=== PATIENT | female | born 1935 | race Hispanic/Latino ===

== ENCOUNTER 2017-12-25 19:36 | Emergency (ER) | payer MEDICARE, OTHER ==
[2017-12-25 19:37] VITALS: BMI 39.0
[2017-12-25] MEDS ORDERED: Sodium Chloride 0.9% 1,000 ML IV STA (19:58)
--- NOTE | 2017-12-25 20:27 | ED PDOC ---
Arrival/HPI - General Chief Complaint: Female Genitourinary Time Seen by Provider: 12/25/17 19:41 Historian: Patient - History of Present Illness Narrative History of Present Illness (Text): 12/25/17 19:57 82 year old female, with past medical history of hypertension, diabetes mellitus and kidney stones, presents to the Emergency department complaining of sudden onset of left flank discomfort since today. Patient states worsening pain radiating to her left groin associated with occasional nausea, prompting her to present to the Emergency department for medical evaluation. Patient states symptoms are consistent with her previous episodes of renal colic. Patient denies any fever, chills , vomiting, diarrhea, chest pain, shortness of breath, dysuria, hematuria, urinary output changes or any other complaints. Time/Duration: 4-6 hours Symptom Onset: Gradual Symptom Course: Unchanged Quality: Aching Activities at Onset: Light Context: Home Past Medical History - Provider Review Nursing Documentation Reviewed: Yes - Cardiac Hx Cardiac Disorders: Yes Hx Hypertension: Yes - Pulmonary Hx Respiratory Disorders: No - Neurological Hx Neurological Disorder: No - HEENT Hx HEENT Disorder: No - Renal Hx Renal Disorder: Yes Hx Kidney Stones: Yes - Endocrine/Metabolic Hx Endocrine Disorders: Yes Hx Diabetes Mellitus Type 2: Yes - Hematological/Oncological Hx Blood Disorders: No Hx Blood Transfusions: No Hx Blood Transfusion Reaction: (NA) - Integumentary Hx Dermatological Disorder: No - Musculoskeletal/Rheumatological Hx Musculoskeletal Disorders: No - Gastrointestinal Hx Gastrointestinal Disorders: No - Genitourinary/Gynecological Hx Genitourinary Disorders: No - Psychiatric Hx Psychophysiologic Disorder: No Hx Physical Abuse: No Hx Substance Use: No - Surgical History Hx Cataract Extraction: Yes Hx Hysterectomy: Yes Hx Orthopedic Surgery: Yes (L WRIST, LEFT KNEE REPLACMENT) Other/Comment: RENAL STENT - Anesthesia Hx Anesthesia Reactions: No Hx Malignant Hyperthermia: No - Suicidal Assessment Feels Threatened In Home Enviroment: No Family/Social History - Physician Review Nursing Documentation Reviewed: Yes Family/Social History: No Known Family HX Smoking Status: Never Smoked Hx Alcohol Use: Yes (socially) Hx Substance Use: No Hx Substance Use Treatment: No Allergies/Home Meds Allergies/Adverse Reactions: Allergies No Known Allergies Allergy (Verified 12/25/17 19:39) Home Medications: Home Meds Medication Instructions Recorded Confirmed Atorvastatin Calcium [Lipitor] 40 mg PO DAILY 04/10/13 12/25/17 Glipizide 4 mg PO BID 04/10/13 12/25/17 Losartan/Hydrochlorothiazide 1 tab PO DAILY 07/24/14 12/25/17 [Losartan Potassium-Hydrochlorothiazide 12.5 M] Cholecalciferol (Vitamin D3) 1 tab PO DAILY 12/25/17 12/25/17 [Vitamin D3] Vit A/Vit C/Vit E/Zinc/Copper 1 tab PO BID 12/25/17 12/25/17 [Preservision Areds Tablet] Review of Systems - Physician Review All systems were reviewed & negative as marked: Yes - Review of Systems Constitutional: absent: Fevers Respiratory: absent: SOB Cardiovascular: absent: Chest Pain Gastrointestinal: Abdominal Pain (left flank pain), Nausea. absent: Diarrhea, Vomiting Genitourinary Female: absent: Dysuria, Hematuria, Urine Output Changes Physical Exam Vital Signs Reviewed: Yes Vital Signs Temp Pulse Resp BP Pulse Ox 12/25/17 23:10 98.9 F 90 18 154/75 H 96 12/25/17 22:15 99.2 F 108 H 19 140/87 96 12/25/17 19:41 98.5 F 95 H 17 145/75 95 Temperature: Afebrile Blood Pressure: Normal Pulse: Regular Respiratory Rate: Normal Appearance: Positive for: Well-Appearing, Non-Toxic, Comfortable Pain Distress: None Mental Status: Positive for: Alert and Oriented X 3 - Systems Exam Head: Present: Atraumatic, Normocephalic Pupils: Present: PERRL Extroacular Muscles: Present: EOMI Conjunctiva: Present: Normal Mouth: Present: Moist Mucous Membranes Neck: Present: Normal Range of Motion Respiratory/Chest: Present: Clear to Auscultation, Good Air Exchange. No: Respiratory Distress, Accessory Muscle Use Cardiovascular: Present: Regular Rate and Rhythm, Normal S1, S2. No: Murmurs Abdomen: No: Tenderness, Distention, Peritoneal Signs Back: Present: Normal Inspection. No: CVA Tenderness Upper Extremity: Present: Normal Inspection. No: Cyanosis, Edema Lower Extremity: Present: Normal Inspection. No: Edema Neurological: Present: GCS=15, CN II-XII Intact, Speech Normal Skin: Present: Warm, Dry, Normal Color. No: Rashes Psychiatric: Present: Alert, Oriented x 3, Normal Insight, Normal Concentration Medical Decision Making ED Course and Treatment: 12/25/17 19:57 Impression: 82 year old female presents to the Emergency department for left flank pain associated with nausea. Differential Diagnosis included but are not limited to: Renal colic Plan: -- CT of Abdomen/Pelvis -- Labs -- IV Fluids -- Toradol -- Zofran -- Urinalysis -- Reassess and disposition Prior Visits: Notes and results from previous visits were reviewed. Progress Notes: 12/25/17 21:59 CT Abdomen and Pelvis shows: Limitations: Limited evaluation due to lack of IV contrast. Lung bases: Unremarkable. No mass. No consolidation. Heart: coronary artery calcification. Mediastinum: Small hiatal hernia. Small hiatal hernia. ABDOMEN: Liver: The liver is heterogeneous in appearance. Gallbladder and bile ducts: Unremarkable. No calcified stones. No ductal dilation. Pancreas: Pancreas evaluation is limited. No ductal dilation. Spleen: Unremarkable. No splenomegaly. Adrenals: Unremarkable. No mass. Kidneys and ureters: 4 mm calculus is noted just below the UPJ in the proximal ureter with mild left hydronephrosis. Stomach and bowel: Bowel evaluation is limited due to lack of distention. No mucosal thickening. PELVIS: Appendix: No findings to suggest acute appendicitis. Bladder: Air noted within the bladder probably related to recent instrumentation. No stones. Reproductive: Unremarkable as visualized. ABDOMEN and PELVIS: Intraperitoneal space: Unremarkable. No free air. No significant fluid collection. Bones/joints: Osteopenia and degenerative changes of the spine. No acute fracture. No dislocation. Soft tissues: Small umbilical hernia containing fat and fluid. Vasculature: Significant atherosclerotic changes of the aorta and calcification of the branches. No abdominal aortic aneurysm. Lymph nodes: Unremarkable. No enlarged lymph nodes. IMPRESSION: 4 mm calculus in the left UVJ with mild hydronephrosis. 12/25/17 22:13 On re-evaluation, patient feels better and is in no acute distress. I have discussed the results and plan with the patient, who expresses understanding. Patient in agreement with plan to be discharged home. Patient is stable for discharge. Patient was instructed to follow up with physician or return if symptoms worsen or new concerning symptoms arise. - Lab Interpretations Lab Results: 12/25/17 20:06 12/25/17 20:06 Lab Results 12/25/17 20:06: WBC 8.8, RBC 4.75, Hgb 14.4, Hct 42.6, MCV 89.7, MCH 30.3, MCHC 33.8, RDW 14.0, Plt Count 185, MPV 10.5 12/25/17 20:06: Sodium 141, Potassium 4.1, Chloride 102, Carbon Dioxide 26, Anion Gap 17, BUN 26 H, Creatinine 0.8, Est GFR ( Amer) > 60, Est GFR ( Non-Af Amer) > 60, Random Glucose 197 H, Calcium 9.8, Total Bilirubin 0.7, AST 17, ALT 35, Alkaline Phosphatase 78, Total Protein 8.1, Albumin 4.6, Globulin 3.5, Albumin/Globulin Ratio 1.3, Lipase 41 12/25/17 20:06: Urine Color Light yellow, Urine Appearance Cloudy, Urine pH 6.0 , Ur Specific [place] 1.025, Urine Protein 30 H, Urine Glucose (UA) Negative, Urine Ketones Negative, Urine Blood Large H, Urine Nitrate Positive H, Urine Bilirubin Negative, Urine Urobilinogen 0.2, Ur Leukocyte Esterase Large H, Urine RBC 5 - 10, Urine WBC 20 - 25, Ur Epithelial Cells 1 - 3, Urine Bacteria Large - RAD Interpretation Radiology Orders: 12/25/17 19:57 ABD & PELVIS W/O PO OR IV CONT [CT] Stat Surgical Services Coordinator: Radiologist - Medication Orders Current Medication Orders: Discontinued Medications Sodium Chloride (Sodium Chloride 0.9%) 1,000 mls @ 999 mls/hr IV .Q1H1M STA Stop: 12/25/17 20:58 Last Admin: 12/25/17 20:20 Dose: 999 mls/hr eMAR Start Stop Document 12/25/17 20:20 OCS (Rec: 12/25/17 20:23 [email or web address] Intravenous Solution Start Date 12/25/17 Start Time 20:21 End Date 12/25/17 End time 21:22 Total Infusion Time 61 Ceftriaxone Sodium (Rocephin 1 Gram Ivpb) 1 gm in 100 mls @ 200 mls/hr IV ONCE STA PRN Reason: Protocol Stop: 12/25/17 22:33 Last Admin: 12/25/17 22:14 Dose: 200 mls/hr eMAR Start Stop Document 12/25/17 22:14 OCS (Rec: 12/25/17 22:14 [email or web address] Intravenous Solution Start Date 12/25/17 Start Time 22:14 End Date 12/25/17 End time 22:44 Total Infusion Time 30 Ketorolac Tromethamine (Toradol) 30 mg IVP ONCE ONE Stop: 12/25/17 19:59 Last Admin: 12/25/17 20:23 Dose: 30 mg MAR Pain Assessment Document 12/25/17 20:23 OCS (Rec: 12/25/17 20:23 [email or web address] Pain Reassessment Is this a pain reassessment? No Sleep Is patient sleeping during reassessment? No Presence of Pain Presence of Pain Yes Pain Scale Used Pain Scale Used Numeric Location Left, Right or Bilateral Right Upper or Lower Lower Pain Location Body Site Abdomen Description Description Constant Intensity of Pain at present 10 Aggravating Factors ADL's IVP Administration Document 12/25/17 20:23 OCS (Rec: 12/25/17 20:23 [email or web address] Charges for Administration # of IVP Administrations 1 Ondansetron HCl (Zofran Inj) 4 mg IVP ONCE ONE Stop: 12/25/17 20:04 Last Admin: 12/25/17 20:23 Dose: 4 mg IVP Administration Document 12/25/17 20:23 OCS (Rec: 12/25/17 20:24 [email or web address] Charges for Administration # of IVP Administrations 1 - Scribe Statement The provider has reviewed the documentation as recorded by the Scribe Eileen Ho. All medical record entries made by the Scribe were at my direction and personally dictated by me. I have reviewed the chart and agree that the record accurately reflects my personal performance of the history, physical exam, medical decision making, and the department course for this patient. I have also personally directed, reviewed, and agree with the discharge instructions and disposition. Disposition/Present on Arrival - Present on Arrival Any Indicators Present on Arrival: No History of DVT/PE: No History of Uncontrolled Diabetes: No Urinary Catheter: No History of Decub. Ulcer: No History Surgical Site Infection Following: None - Disposition Have Diagnosis and Disposition been Completed?: Yes Diagnosis: Renal colic on left side, UTI (urinary tract infection) Disposition: HOME/ ROUTINE Disposition Time: 22:05 Patient Plan: Discharge Condition: STABLE Discharge Instructions (ExitCare): Urinary Tract Infection, Adult (DC), Renal Colic (DC) Additional Instructions: Drink plenty of liquids/take meds as prescribed/follow up with your doctor/ urologist this week/any recurrent severe pain return to the emergency room Prescriptions: Cephalexin [cephalexin] 500 mg PO BID #14 cap Acetaminophen/Hydrocodone Bi [Vicodin 300 mg-5 mg] 1 tab PO Q6 PRN #16 tab PRN Reason: Pain, Moderate (4-7) Forms: [employer] (French)
[2017-12-25 20:33] LABS: HEMOGLOBIN 14.4 g/dL (12.0-16.0); MEAN CELL VOLUME 89.7 fl (80.0-105.0); MEAN CORPUSCULAR HEMOGLOBIN 30.3 pg (25.0-35.0); MEAN CORPUSCULAR HGB CONC 33.8 g/dl (31.0-37.0); MEAN PLATELET VOLUME 10.5 fl (7.0-11.0); RBC 4.75 10^6/uL (3.5-6.1); WHITE BLOOD COUNT 8.8 10^3/ul (4.5-11.0)
[2017-12-25 20:36] LABS: URINE APPEARANCE CLOUDY (CLEAR); URINE BILIRUBIN NEGATIVE (NEGATIVE); URINE BLOOD LARGE (NEGATIVE); URINE COLOR LIGHT YELLOW (YELLOW); URINE GLUCOSE (UA) NEGATIVE (NEGATIVE); URINE LEUKOCYTE ESTERASE LARGE Leu/uL (NEGATIVE); URINE PROTEIN 30 mg/dL (<30 mg/dL); URINE UROBILINOGEN 0.2 E.U./dL (<1 E.U./dL)
[2017-12-25 20:41] LABS: ALB/GLOB RATIO 1.3 (1.1-1.8); ALBUMIN 4.6 g/dL (3.0-4.8); ALT/SGPT 35 U/L (7-56); AST/SGOT 17 U/L (14-36); BLOOD UREA NITROGEN 26 mg/dL (7-21); CALCIUM 9.8 mg/dL (8.4-10.5); GFR AFRICAN-AMERICAN > 60; GFR NON-AFRICAN AMERICAN > 60; LIPASE 41 U/L (23-300)
[2017-12-25 20:42] LABS: URINE BACTERIA LARGE (NEG); URINE WBC 20 - 25 /hpf (0-6)
[2017-12-25] MEDS ORDERED: cefTRIAXone 1 gm 1 GM/100 ML BAG IV STA (22:04)
[2017-12-25 22:22] VITALS: O2SAT 96
[2017-12-25 23:11] VITALS: BP 154/75; PULSE 90; RESP 18; TEMP 98.9
--- NOTE | 2017-12-26 09:13 | CT ---
Date of service: 12/25/2017 PROCEDURE: CT Abdomen and Pelvis without intravenous contrast HISTORY: left flank pain/HX. of nephrolithiasis COMPARISON: None. TECHNIQUE: Without contrast.. Contrast dose: Radiation dose: Total exam DLP = 1065 mGy-cm. This CT exam was performed using one or more of the following dose reduction techniques: Automated exposure control, adjustment of the mA and/or kV according to patient size, and/or use of iterative reconstruction technique. FINDINGS: LOWER THORAX: Unremarkable. LIVER: Unremarkable. No gross lesion or ductal dilatation. GALLBLADDER AND BILE DUCTS: Unremarkable. PANCREAS: Unremarkable. No gross lesion or ductal dilatation. SPLEEN: Unremarkable. ADRENALS: Unremarkable. No mass. KIDNEYS AND URETERS: There is a 4 mm stone in the proximal left ureter with mild hydronephrosis. There is a 10 mm nonobstructing stone in the lower pole of the right kidney. VASCULATURE: Unremarkable. No aortic aneurysm. BOWEL: Unremarkable. No obstruction. No gross mural thickening. APPENDIX: Unremarkable. Normal appendix. PERITONEUM: Unremarkable. No free fluid. No free air. LYMPH NODES: Unremarkable. No enlarged lymph nodes. BLADDER: Unremarkable. REPRODUCTIVE: Unremarkable. BONES: No acute fracture. OTHER FINDINGS: The report concurs with the preliminary [facility] report IMPRESSION: 4 mm stone in the proximal left ureter with mild hydronephrosis. 10 mm nonobstructing stone in the lower pole of the right kidney
== END 2017-12-25 22:15 | disposition home or self-care (01) ==
LOC: ED 19:36
DX: N20.0 Calculus of kidney (principal); N39.0 Urinary tract infection, site not specified; I10 Essential (primary) hypertension; E11.9 Type 2 diabetes mellitus without complications; Z87.442 Personal history of urinary calculi
CPT/HCPCS: 72HRC; 99283

== ENCOUNTER 2017-12-25 23:54 | Inpatient (IN) | payer MEDICARE, OTHER ==
[2017-12-25 23:59] VITALS: BMI 38.0
--- NOTE | 2017-12-26 00:29 | ED PDOC ---
Arrival/HPI - General Chief Complaint: Medical Clearance Time Seen by Provider: 12/25/17 23:57 Historian: Patient - History of Present Illness Narrative History of Present Illness (Text): 12/26/17 00:23 Carline Nunez is an 82 year old female, whose past medical history includes hypertension, diabetes, and kidney stones, who presents to the Emergency department complaining of chills and shaking. Patient was seen earlier today for evaluation of left flank pain and diagnosed with a ureteral stone. Patient was treated with symptomatic relief. Patient also with a possible UTI, was treated with initial dose of IV Rocephin, and was discharged home. Patient states while at home she began experiencing shaking/chills. Patient states she has no allergies to any antibiotics. Patient denies any chest pain, nausea, vomiting, diarrhea, neck pain, headache, dizziness, or any other complaints. Time/Duration: Prior to Arrival Symptom Onset: Gradual Symptom Course: Unchanged Activities at Onset: Light Context: Home Past Medical History - Provider Review Nursing Documentation Reviewed: Yes - Infectious Disease Hx of Infectious Diseases: None - Cardiac Hx Cardiac Disorders: Yes Hx Hypertension: Yes - Pulmonary Hx Respiratory Disorders: No - Neurological Hx Neurological Disorder: No - HEENT Hx HEENT Disorder: No - Renal Hx Renal Disorder: No - Endocrine/Metabolic Hx Endocrine Disorders: Yes Hx Diabetes Mellitus Type 2: Yes - Hematological/Oncological Hx Blood Disorders: No Hx Blood Transfusions: No Hx Blood Transfusion Reaction: (NA) - Integumentary Hx Dermatological Disorder: No - Musculoskeletal/Rheumatological Hx Musculoskeletal Disorders: No - Gastrointestinal Hx Gastrointestinal Disorders: No - Genitourinary/Gynecological Hx Genitourinary Disorders: No - Psychiatric Hx Psychophysiologic Disorder: No Hx Physical Abuse: No Hx Substance Use: No - Surgical History Hx Orthopedic Surgery: Yes (left wrist sx, LEFT KNEE REPLACMENT) - Anesthesia Hx Anesthesia Reactions: No Hx Malignant Hyperthermia: No - Suicidal Assessment Feels Threatened In Home Enviroment: No Family/Social History - Physician Review Nursing Documentation Reviewed: Yes Family/Social History: Unknown Family HX Smoking Status: Never Smoked Hx Alcohol Use: Yes (socially) Hx Substance Use: No Hx Substance Use Treatment: No Allergies/Home Meds Allergies/Adverse Reactions: Allergies No Known Allergies Allergy (Verified 12/25/17 19:39) Home Medications: Home Meds Medication Instructions Recorded Confirmed Atorvastatin Calcium [Lipitor] 40 mg PO DAILY 04/10/13 12/25/17 Glipizide 4 mg PO BID 04/10/13 12/25/17 Losartan/Hydrochlorothiazide 1 tab PO DAILY 07/24/14 12/25/17 [Losartan Potassium-Hydrochlorothiazide 12.5 M] Cholecalciferol (Vitamin D3) 1 tab PO DAILY 12/25/17 12/25/17 [Vitamin D3] Vit A/Vit C/Vit E/Zinc/Copper 1 tab PO BID 12/25/17 12/25/17 [Preservision Areds Tablet] Review of Systems - Physician Review All systems were reviewed & negative as marked: Yes - Review of Systems Constitutional: Other (+chills, +shaking) Eyes: Normal ENT: Normal Respiratory: absent: SOB Cardiovascular: Normal. absent: Chest Pain Gastrointestinal: Normal. absent: Abdominal Pain, Diarrhea, Nausea, Vomiting Genitourinary Female: Normal. absent: Dysuria, Frequency, Hematuria, Urine Output Changes Musculoskeletal: Normal. absent: Back Pain, Neck Pain Skin: Normal. absent: Rash Neurological: Normal. absent: Headache, Dizziness Endocrine: Normal Hemo/Lymphatic: Normal Psychiatric: Normal Physical Exam Vital Signs Reviewed: Yes Vital Signs Temp Pulse Resp BP Pulse Ox 12/26/17 03:39 108 H 18 110/59 L 95 12/26/17 01:48 98.7 F 118 H 18 117/69 95 12/26/17 00:42 100.8 F H 123 H 18 123/60 95 Temperature: Afebrile Blood Pressure: Normal Pulse: Tachycardic Respiratory Rate: Normal Appearance: Positive for: Well-Appearing, Non-Toxic, Comfortable Pain Distress: None Mental Status: Positive for: Alert and Oriented X 3 - Systems Exam Head: Present: Atraumatic, Normocephalic Pupils: Present: PERRL Extroacular Muscles: Present: EOMI Conjunctiva: Present: Normal Ears: Present: Normal, NORMAL TM, Normal Canal. No: Erythema, TM Bulging, Fluid , TM Perf Mouth: Present: Moist Mucous Membranes Pharnyx: Present: Normal. No: ERYTHEMA, EXUDATE, TONSILS ENLARGED, Peritonsilar Swelling, Uvular Deviation, Muffled/Hoarse Voice, Str[place], Soft Palate/Uvular Edema Nose (External): Present: Atraumatic Nose (Internal): Present: Normal Inspection Neck: Present: Normal Range of Motion. No: Meningeal Signs, MIDLINE TENDERNESS , Paraspinal Tenderness Respiratory/Chest: Present: Clear to Auscultation, Good Air Exchange. No: Respiratory Distress, Accessory Muscle Use Cardiovascular: Present: Normal S1, S2, Tachycardic. No: Murmurs Abdomen: No: Tenderness, Distention, Peritoneal Signs Back: Present: Normal Inspection. No: CVA Tenderness, Midline Tenderness, Paraspinal Tenderness Upper Extremity: Present: Normal Inspection. No: Cyanosis, Edema Lower Extremity: Present: Normal Inspection. No: Edema Neurological: Present: GCS=15, CN II-XII Intact, Speech Normal Skin: Present: Warm, Dry, Normal Color. No: Rashes Psychiatric: Present: Alert, Oriented x 3, Normal Insight, Normal Concentration Medical Decision Making ED Course and Treatment: 12/26/17 00:23 Impression: 82 year old female complaining of chills/shaking . Plan: -- EKG -- Chest X-ray -- Labs, VBG, blood cultures -- Urinalysis, urine cultures -- IV fluids -- Tylenol -- Reassess and disposition Prior Visits: Notes and results from previous visits were reviewed. Progress Notes: Reviewed EKG, sinus tachycardia at 124 bpm. LAD. Septal/lateral infarct. 12/26/17 01:03 Labs noted, lactate: 3.5. Code Sepsis called. 12/26/17 02:06 Chest X-ray reviewed, shows no acute processes. Case discussed with Dr. Mir, attenuator, who is aware and agrees to evaluate pt for possible ICU admission. 12/26/17 02:[address] Ritchie, who is aware and agrees with plan. Accepts pt in to his service. 12/26/17 02:[address] Mir, present in Emergency department to evaluate pt, states pt is stable for telemetry. Pt will be admitted to Telemetry for sepsis, UTI, and nephrolithiasis under Dr. Ritchie's service. - Lab Interpretations Lab Results: 12/26/17 00:15 12/26/17 00:15 Lab Results 12/26/17 00:15: Sodium 139, Chloride 104, Potassium 4.2, Carbon Dioxide 19 L, Anion Gap 20, BUN 27 H, Creatinine 0.9, Est GFR ( Amer) > 60, Est GFR ( Non-Af Amer) 60, Random Glucose 220 H, Calcium 9.1, Phosphorus 3.6, Magnesium 1.6 L, Total Bilirubin 1.0, AST 46 H D, ALT 35, Alkaline Phosphatase 84, Total Protein 7.1, Albumin 4.0, Globulin 3.1, Albumin/Globulin Ratio 1.3 12/26/17 00:15: pO2 50, VBG pH 7.29 L, VBG pCO2 40.0, VBG HCO3 19.2 L, VBG Total CO2 20.4 L, VBG O2 Sat (Calc) 87.2 H, VBG Base Excess -7.0 L, VBG Potassium 4.2, Sodium 138.0, Chloride 106.0, Glucose 234 H, Lactate 3.5 H, FiO2 21.0, Venous Blood Potassium 4.2 12/26/17 00:15: PT 11.0, INR 0.97, APTT 24.7 L 12/26/17 00:15: WBC 2.2 L* D, RBC 4.53, Hgb 13.7, Hct 40.5, MCV 89.4, MCH 30.2, MCHC 33.8, RDW 14.0, Plt Count 117 L, MPV 10.4, Gran % 91.6 H, Lymph % (Auto) 7.0 L, [place] % (Auto) 0.9 L, Eos % (Auto) 0.5 L, Baso % (Auto) 0.0, Gran # 1.97, Lymph # (Auto) 0.2 L, [place] # (Auto) 0.0 L, Eos # (Auto) 0.0, Baso # (Auto) 0.00 , Neutrophils % (Manual) 65, Band Neutrophils % 20 H*, Lymphocytes % (Manual) 9 L, Atypical Lymphs % 1 H, Monocytes % (Manual) 1, Eosinophils % (Manual) 1, Metamyelocytes % 2, Myelocytes % 1, Platelet Evaluation Low I have reviewed the lab results: Yes - RAD Interpretation Radiology Orders: 12/26/17 00:17 CHEST PORTABLE [RAD] Stat Video Camera Operator: ED Physician - EKG Interpretation Interpreted by ED Physician: Yes Type: 12 lead EKG - Medication Orders Current Medication Orders: Acetaminophen (Tylenol 325mg Tab) 650 mg PO Q6H PRN PRN Reason: Fever >100.4 F Stop: 12/26/17 13:00 Sodium Chloride (Sodium Chloride 0.9%) 1,000 mls @ 150 mls/hr IV .Q6H40M ROGERS Last Admin: 12/26/17 00:42 Dose: 150 mls/hr eMAR Start Stop Document 12/26/17 00:42 AD (Rec: 12/26/17 00:42 AD [id number]) Intravenous Solution Start Date 12/26/17 Start Time 00:42 Cefepime HCl (Maxipime 1gm) 1 gm in 100 mls @ 100 mls/hr IVPB Q24H ROGERS PRN Reason: Protocol Discontinued Medications Acetaminophen (Tylenol 325mg Tab) 650 mg PO STAT STA Stop: 12/26/17 00:26 Last Admin: 12/26/17 00:42 Dose: 650 mg MAR Pain/Vitals Document 12/26/17 00:42 AD (Rec: 12/26/17 00:43 AD [id number]) Vitals Temperature (97.6 F-99.6 F) 100.8 F Temperature Source Oral Sodium Chloride (Sodium Chloride 0.9%) 1,000 mls @ 2,000 mls/hr IV .Q30M ONE Stop: 12/26/17 01:37 Last Admin: 12/26/17 01:24 Dose: 2,000 mls/hr eMAR Start Stop Document 12/26/17 01:24 AD (Rec: 12/26/17 01:24 AD [id number]) Intravenous Solution Start Date 12/26/17 Start Time 01:24 Magnesium Sulfate/Dextrose (Magnesium Sulfate 1 Gm/100 Ml D5w) 1 gm in 100 mls @ 100 mls/hr IVPB ONCE ONE Stop: 12/26/17 03:33 Last Admin: 12/26/17 02:52 Dose: 100 mls/hr eMAR Start Stop Document 12/26/17 02:52 AD (Rec: 12/26/17 02:52 AD [id number]) Intravenous Solution Start Date 12/26/17 Start Time 02:52 - Scribe Statement The provider has reviewed the documentation as recorded by the Humzaibtommy Mondragon Provider Scribe Attestation: All medical record entries made by the Scribe were at my direction and personally dictated by me. I have reviewed the chart and agree that the record accurately reflects my personal performance of the history, physical exam, medical decision making, and the department course for this patient. I have also personally directed, reviewed, and agree with the discharge instructions and disposition. Disposition/Present on Arrival - Present on Arrival Any Indicators Present on Arrival: No History of DVT/PE: No History of Uncontrolled Diabetes: No Urinary Catheter: No History of Decub. Ulcer: No History Surgical Site Infection Following: None - Disposition Have Diagnosis and Disposition been Completed?: Yes Diagnosis: Left ureteral calculus, Fever, Sepsis, UTI (urinary tract infection) Disposition: HOSPITALIZED Disposition Time: 03:05 Patient Plan: Admission Condition: STABLE
[2017-12-26] MEDS: Sodium Chloride 0.9% 1,000 ML IV SCH ×4 (00:42→21:25)
[2017-12-26 00:51] LABS: EOS % 0.5 % (1.5-5.0); GRAN # 1.97 (1.4-6.5); GRAN % 91.6 % (50.0-68.0); HEMOGLOBIN 13.7 g/dL (12.0-16.0); LYMPH # 0.2 (1.2-3.4); MEAN CELL VOLUME 89.4 fl (80.0-105.0); MEAN CORPUSCULAR HEMOGLOBIN 30.2 pg (25.0-35.0); MEAN CORPUSCULAR HGB CONC 33.8 g/dl (31.0-37.0); MEAN PLATELET VOLUME 10.4 fl (7.0-11.0); MONO % 0.9 % (1.0-6.0); PLATELET COUNT 117 10^3/uL (120.0-450.0); RBC 4.53 10^6/uL (3.5-6.1)
[2017-12-26 00:57] LABS: VENOUS BLOOD GAS PO2 50 mm/Hg (30-55); VENOUS BLOOD PH 7.29 (7.32-7.43)
[2017-12-26 01:01] LABS: WHITE BLOOD COUNT 2.2 10^3/ul (4.5-11.0)
[2017-12-26] MEDS ORDERED: Sodium Chloride 0.9% 1,000 ML IV ONE (01:08)
[2017-12-26 01:14] LABS: INR 0.97 (0.93-1.08); PARTIAL THROMBOPLASTIN TIME 24.7 Seconds (25.1-36.5)
[2017-12-26 01:23] LABS: ALB/GLOB RATIO 1.3 (1.1-1.8); ALT/SGPT 35 U/L (7-56); AST/SGOT 46 U/L (14-36); BLOOD UREA NITROGEN 27 mg/dL (7-21); CALCIUM 9.1 mg/dL (8.4-10.5); GFR AFRICAN-AMERICAN > 60; GFR NON-AFRICAN AMERICAN 60
[2017-12-26] MEDS ORDERED: Magnesium Sulfate 1 gm in D5W 1 GM/100 ML BAG IVPB ONE ×2 (02:34→17:09)
[2017-12-26 03:27] LABS: ATYPICAL LYMPHOCYTE 1 % (0.0-0.0); BAND 20 % (0-2); EOSINOPHIL 1 % (0.0-3.0); LYMPHOCYTE 9 % (22.0-35.0); METAMYELOCYTE 2 %; MONOCYTE 1 % (1.0-6.0); MYELOCYTE 1 %
[2017-12-26 03:28] LABS: VENOUS BLOOD GAS BASE EXCESS -6.6 mmol/L (0.0-2.0); VENOUS BLOOD GAS PO2 144 mm/Hg (30-55); VENOUS BLOOD PH 7.33 (7.32-7.43)
[2017-12-26 03:28] LABS: PLATELET ESTIMATE LOW (NORMAL)
[2017-12-26 03:29] LABS: NEUTROPHIL 65 % (50.0-70.0)
--- NOTE | 2017-12-26 04:24 | PCM.SEPTIC ---
Sepsis Progress Note - Reassessment Type Date of Evaluation: 12/26/17 Time of Evaluation: 04:22 Reassessment Type: Non-invasive reassessment - Non Invasive Reassessment Were the most recent vital sign reviewed: Yes Vital Sign (Latest): Temp Pulse Resp BP Pulse Ox 98.7 F 108 H 18 110/59 L 95 12/26/17 01:48 12/26/17 03:55 12/26/17 03:55 12/26/17 03:55 12/26/17 03:55 Cardiovascular: Yes: Chest Non Tender, Edema, Murmur, Tachycardia Respiratory: Yes: Normal Breath Sounds. No: Rhonchi, Wheezing, Respiratory Distress Capillary Refill: Normal (Less than 2 sec) Pulses: Normal Radial, Decreased Dorsalis Pedis Skin: Normal Color, Warm, Diaphoretic
[2017-12-26 04:46] LABS: PH,URINE 5.5 (4.7-8.0); URINE BILIRUBIN NEGATIVE (NEGATIVE); URINE BLOOD LARGE (NEGATIVE); URINE GLUCOSE (UA) NEGATIVE (NEGATIVE); URINE LEUKOCYTE ESTERASE LARGE Leu/uL (NEGATIVE); URINE PROTEIN 30 mg/dL (<30 mg/dL); URINE UROBILINOGEN 0.2 E.U./dL (<1 E.U./dL)
[2017-12-26 04:56] LABS: URINE APPEARANCE TURBID (CLEAR); URINE COLOR DARK YELLOW (YELLOW)
[2017-12-26 05:01] LABS: URINE BACTERIA MOD (NEG); URINE WBC TNTC /hpf (0-6)
[2017-12-26] MEDS ORDERED: Sodium Chloride 0.9% 1,000 ML IV SCH (07:00)
[2017-12-26] MEDS: Insulin Reg-MEDIUM-Coverage SC SCH ×3 (08:04→17:11)
--- NOTE | 2017-12-26 08:42 | RAD ---
Date of service: 12/26/2017 HISTORY: Sepsis Patient COMPARISON: No prior. FINDINGS: LUNGS: There are low lung volumes. There is mild pulmonary venous congestion. There is left lower lobe airspace disease. PLEURA: Question of small left pleural effusion, no pneumothorax apparent. CARDIOVASCULAR: Normal. OSSEOUS STRUCTURES: No significant abnormalities. VISUALIZED UPPER ABDOMEN: Normal. OTHER FINDINGS: None. IMPRESSION: Left lower lobe airspace disease may represent atelectasis or pneumonia. Small left pleural effusion. Low lung volumes may be related to poor inspiratory effort.
--- NOTE | 2017-12-26 09:26 | CARD ---
APPROVED REPORT Date of service: 12/26/2017 EKG Measurement Heart [id number] <Conclusion> Sinus tachycardia Possible Left atrial enlargement Left Anterior Luis-Block. Possible Septal infarct? age Old. Possible Lateral infarct? age Old. Abnormal ECG
[2017-12-26] MEDS ORDERED: Iodixanol 320 mg/ml 50 ml Sol IV ONE (09:27)
[2017-12-26] MEDS ORDERED: Cefepime 1gm in NS 100ml 1 GM/100 ML BAG IVPB SCH (10:00)
[2017-12-26] MEDS ORDERED: Etomidate 20 mg/10ml Inj IV ONE (10:03)
--- NOTE | 2017-12-26 11:25 | RAD ---
Date of service: 12/26/2017 PROCEDURE: Retrograde pyelogram HISTORY: STENT PLACEMENT COMPARISON: TECHNIQUE: 33.7 seconds of fluoro time. 16.4 mGy cumulative dose. Ten images submitted FINDINGS: There is placement of a left ureteral stent IMPRESSION: As above
[2017-12-26] MEDS ORDERED: Sodium Chloride 0.9% 500 ML IV SCH (12:15)
--- NOTE | 2017-12-26 14:24 | CP.PCM.HP ---
<Ronen Muhammad - Last Filed: 12/26/17 14:24> History of Present Illness - History of Present Illness History of Present Illness: Medicine H&P for Dr. Ritchie's service - Sonal Muhammad PGY3 HPI: Patient is a 82yo female with past medical history of hypertension, diabetes, and nephrolithiasis presented to [facility] [place] with c/o left-sided flank pain, subjective fevers and chills. She reported having been seen previously in the ED a day prior and told she had a left-sided ureteral stone. She was subsequently discharged on cephalexin and pain medication however began having worsening chills/shaking and decided to return to the ED. On evaluation, she was noted to have a WBC count of 2.2 with 20% bands, positive urinalysis and a lactate of 3.5. Code sepsis was called. She was treated with IV antibiotics, IV fluid hydration and urology was consulted for evaluation. She denied chest pain , palpitations, SOB, abdominal pain, nausea, vomiting, cough, focal weakness, numbness, tingling. 12point ROS as per above otherwise negative PMH: as stated above PSH: hysterectomy Allergies: NKDA Social Hx: denies tobacco, alcohol and illicit drug use Family Hx; noncontributory Present on Admission - Present on Admission Any Indicators Present on Admission: No Past Patient History - Infectious Disease Hx of Infectious Diseases: None - Past Social History Smoking Status: Never Smoked - CARDIAC Hx Cardiac Disorders: Yes Hx Hypertension: Yes - PULMONARY Hx Respiratory Disorders: No - NEUROLOGICAL Hx Neurological Disorder: No - HEENT Hx HEENT Problems: No - RENAL Hx Chronic Kidney Disease: No - ENDOCRINE/METABOLIC Hx Endocrine Disorders: Yes Hx Diabetes Mellitus Type 2: Yes - HEMATOLOGICAL/ONCOLOGICAL Hx Blood Transfusions: No Hx Blood Transfusion Reaction: No - INTEGUMENTARY Hx Dermatological Problems: No - MUSCULOSKELETAL/RHEUMATOLOGICAL Hx Musculoskeletal Disorders: No - GASTROINTESTINAL Hx Gastrointestinal Disorders: No - GENITOURINARY/GYNECOLOGICAL Hx Genitourinary Disorders: No - PSYCHIATRIC Hx Psychophysiologic Disorder: No Hx Physical Abuse: No Hx Substance Use: No - SURGICAL HISTORY Hx Surgeries: Yes - ANESTHESIA Hx Anesthesia Reactions: No Hx Malignant Hyperthermia: No Meds Allergies/Adverse Reactions: Allergies Allergy/AdvReac Type Severity Reaction Status Date / Time No Known Allergies Allergy Verified 12/25/17 19:39 Physical Exam - Constitutional Appears: No Acute Distress - Head Exam Head Exam: ATRAUMATIC, NORMOCEPHALIC - Eye Exam Eye Exam: EOMI Pupil Exam: PERRL - ENT Exam ENT Exam: Mucous Membranes Moist - Neck Exam Neck exam: Positive for: Normal Inspection - Respiratory Exam Respiratory Exam: Clear to Auscultation Bilateral. absent: Rales, Rhonchi, Wheezes - Cardiovascular Exam Cardiovascular Exam: RRR, +S1, +S2. absent: Gallop, Rubs - GI/Abdominal Exam GI & Abdominal Exam: Soft. absent: Guarding, Rigid - Extremities Exam Extremities exam: Positive for: pedal edema - Neurological Exam Neurological exam: Alert, CN II-XII Intact, Oriented x3 - Psychiatric Exam Psychiatric exam: Normal Affect, Normal Mood - Skin Skin Exam: Dry, Intact, Normal Color, Warm Results - Vital Signs Recent Vital Signs: Last Vital Signs Temp 98.1 F 12/26/17 13:00 Pulse 94 H 12/26/17 14:00 Resp 18 12/26/17 14:00 BP 85/58 L 12/26/17 14:00 Pulse Ox 95 12/26/17 14:00 - Labs Result Diagrams: 12/26/17 00:15 12/26/17 00:15 Labs: Laboratory Results - last 24 hr 12/26/17 12/26/17 12/26/17 03:15 04:10 07:19 pO2 144 H VBG pH 7.33 VBG pCO2 35.0 L VBG HCO3 18.5 L VBG Total CO2 19.6 L VBG O2 Sat (Calc) 99.5 H VBG Base Excess -6.6 L VBG Potassium 3.4 L Sodium 138.0 Chloride 110.0 H Glucose 231 H Lactate 2.8 H FiO2 21.0 POC Glucose (mg/dL) 216 H Venous Blood Potassium 3.4 L Urine Color Dark yellow Urine Appearance Turbid Urine pH 5.5 Ur Specific [place] 1.020 Urine Protein 30 H Urine Glucose (UA) Negative Urine Ketones Negative Urine Blood Large H Urine Nitrate Positive H Urine Bilirubin Negative Urine Urobilinogen 0.2 Ur Leukocyte Esterase Large H Urine RBC 10 - 15 Urine WBC Tntc Ur Epithelial Cells 1 - 3 Urine Bacteria Mod Assessment & Plan - Assessment and Plan (Free Text) Plan: 82yo female with history of nephrolithiasis, diabetes mellitus type 2, hypertension presents with c/o left-sided flank pain associated with subjective fever/chills secondary to left-sided ureterolithiasis 1. left-sided ureterolithiasis 2. DM type 2 3. Hx of hypertension -Patient was given IVF bolus and started on IVF hydration with normal saline. -Urology was consulted and she is s/p left ureteral stent placement -She is presently on meropenem as per ID recommendations -Tylenol PRN for fevers, zofran PRN for nausea/vomiting -Insulin sliding scale with fingerstick coverage for diabetes -Liquid diet to be advanced as tolerated -PT/OT -Blood/urine cultures pending Patient seen and case discussed/reviewed with attending Dr. Ritchie <Juan Miguel Ritchie - Last Filed: 12/26/17 17:34> Results - Vital Signs Recent Vital Signs: Last Vital Signs Temp 97.8 F 12/26/17 17:21 Pulse 94 H 12/26/17 17:21 Resp 18 12/26/17 17:21 BP 91/58 L 12/26/17 17:21 Pulse Ox 95 12/26/17 14:00 - Labs Result Diagrams: 12/26/17 00:15 12/26/17 00:15 Labs: Laboratory Results - last 24 hr 12/26/17 12/26/17 12/26/17 03:15 04:10 07:19 pO2 144 H VBG pH 7.33 VBG pCO2 35.0 L VBG HCO3 18.5 L VBG Total CO2 19.6 L VBG O2 Sat (Calc) 99.5 H VBG Base Excess -6.6 L VBG Potassium 3.4 L Sodium 138.0 Chloride 110.0 H Glucose 231 H Lactate 2.8 H FiO2 21.0 POC Glucose (mg/dL) 216 H Venous Blood Potassium 3.4 L Urine Color Dark yellow Urine Appearance Turbid Urine pH 5.5 Ur Specific [place] 1.020 Urine Protein 30 H Urine Glucose (UA) Negative Urine Ketones Negative Urine Blood Large H Urine Nitrate Positive H Urine Bilirubin Negative Urine Urobilinogen 0.2 Ur Leukocyte Esterase Large H Urine RBC 10 - 15 Urine WBC Tntc Ur Epithelial Cells 1 - 3 Urine Bacteria Mod Assessment & Plan - Assessment and Plan (Free Text) Assessment: 1. L kidney stone 2. Sepsis 3. Hypotension Plan: Pt seen and examined. I have reviewed the note of the bio medical technician and agree with it. I have discussed the assessment and plan with the resident. I have reviewed the patient's labs and medications. Pt with L kidney stone and L hyrodnephrosis. She also is septic from a UTI. She will need stent placement. I spoke to Dr Florence this morning to inform him about the pt. Pt is NPO. After the stent pt may worsen and become bactremic. The pt is on IVF with NS. She has a hx of stones and stents in the past.
--- NOTE | 2017-12-26 15:06 | OP ---
PROCEDURE DATE: 12/26/2017 PREOPERATIVE DIAGNOSES: Sepsis, obstructing left ureteral calculus, left hydronephrosis. POSTOPERATIVE DIAGNOSES: Sepsis, obstructing left ureteral calculus, left hydronephrosis. PROCEDURES: Cystoscopy, left retrograde pyelogram, and insertion of a left ureteral stent. ATTENDING SURGEON: Rigoberto Florecne MD ANESTHESIA: MAC. SPECIMENS: There were none. DRAINS: A 6 x 24 left ureteral stent. COMPLICATIONS: There were none. OPERATIVE FINDINGS: After informed consent was obtained, the patient was taken to operating room, placed on the operating table. Anesthesia was administered. The patient was placed in the dorsal lithotomy position, and prepped and draped in usual sterile fashion. The patient received intravenous antibiotics prior to start of the procedure. A 22-Niuean cystoscope was passed into the patient's bladder and a full survey inspection was performed. There were no stones, tumors, or foreign bodies of the bladder noted. Both ureteral orifices were visualized and appeared within normal limits. A 5-Niuean Totz catheter was introduced through the cystoscope and guided into the left ureteral orifice. Once inside the orifice, contrast was gently instilled into the left system. There appeared to be a tortuous left ureter. There was a filling defect noted just below the renal pelvis. There was mild fullness above this with mild hydronephrosis. At this point, a sensor wire was obtained. It was passed through the open-ended ureteral catheter and advanced under direct and fluoroscopic guidance up the ureter. This wire was able to be manipulated past the obstructing calculus and coiled in the upper collecting system. A 6-Niuean x 24 stent was obtained. It was then passed over the wire into the left ureter, advanced up the ureter under direct and fluoroscopic guidance. When the stent was in proper position, the guidewire was removed. A coil was seen in the kidney on fluoroscopy. A coil was seen in bladder on cystoscopy. A moderate amount of purulent-appearing urine was noted to be draining through the stent. At this point, the procedure was completed, the bladder was drained, and the cystoscope was removed. The patient tolerated the procedure well. She was returned to the supine position and taken to the recovery room, awake and in stable condition. Rigoberto Florence MD [facility] # [id number]
--- NOTE | 2017-12-26 17:46 | CP.PCM.CON ---
<HarryHosea - Last Filed: 12/26/17 18:00> History of Present Illness - History of Present Illness History of Present Illness: Hosea Mcdonald, PGY1 ICU Consult Note for Dr. Parry Patient is a 82 y/o F with PMHx of HTN, DM, nephrolithiasis (uric acid stones with recurrent hospital admissions), and aortic stenosis who presented to the ED at 7/16 at midnight for chills and shakes. Patient was evaluated for left flank pain prior to her return to the ED, where she received a CT of abdomen/ pelvis that showed a 4 mm stone in the proximal left ureter with mild hydronephrosis, as well as a 10 mm nonobstructing stone in the lower pole of the right kidney. At that time, patient was given x1 dose of IV Rocephin and discharged home. However, later onwards, patient started experiencing chills and shakes. Negative for other ROS. Vital signs in ED: T 100.8 HR 123 RR 18 BP 123/60 SaO2 95%. Code sepsis was called. Routine labs were ordered including CXR , EKG, Blood Cx, Urine Cx, and IVF. Later in the morning, urology was consulted. Cystoscopy and left retrograde pyelogram was done; patient had insertion of a left ureteral stent with no complications. Patient was sent to telemetry s/p left ureteral stent placement. At tele, patient had episodes of hypotension with BP ranging 80s/50s. As a result, ICU was consulted. Patient was examined. Denied fever, chills, abdominal pain, shortness of breath, chest pain, nausea, vomiting, diarrhea. Patient had difficulty making urine. Otherwise , she was in no acute distress and was resting comfortably on nasal cannula. BP during interview was noted to be 91/58 (MAP 69). A Full 12 point ROS was reviewed and unremarkable except as stated above. PMHx: HTN, DM, Nephrolithiasis (uric acid stones with recurrent hospital admissions), Aortic stenosis PSHx: hysterectomy, left ureteral stone stent NKDA: NKDA SocialHx: denies alcohol, tobacco, and drug use. FamilyHx: non-contributory Review of Systems - Review of Systems All systems: reviewed and no additional remarkable complaints except (as per HPI.) Past Patient History - Infectious Disease Hx of Infectious Diseases: None - Past Social History Smoking Status: Never Smoked - CARDIAC Hx Cardiac Disorders: Yes (Aortic Stenosis) Hx Hypertension: Yes - PULMONARY Hx Respiratory Disorders: No - NEUROLOGICAL Hx Neurological Disorder: No - HEENT Hx HEENT Problems: No - RENAL Hx Chronic Kidney Disease: No - ENDOCRINE/METABOLIC Hx Endocrine Disorders: Yes Hx Diabetes Mellitus Type 2: Yes - HEMATOLOGICAL/ONCOLOGICAL Hx Blood Transfusions: No Hx Blood Transfusion Reaction: No - INTEGUMENTARY Hx Dermatological Problems: No - MUSCULOSKELETAL/RHEUMATOLOGICAL Hx Musculoskeletal Disorders: No - GASTROINTESTINAL Hx Gastrointestinal Disorders: Yes Other/Comment: Nephrolithiasis - GENITOURINARY/GYNECOLOGICAL Hx Genitourinary Disorders: No - PSYCHIATRIC Hx Psychophysiologic Disorder: No Hx Physical Abuse: No Hx Substance Use: No - SURGICAL HISTORY Hx Surgeries: Yes Hx Hysterectomy: Yes - ANESTHESIA Hx Anesthesia Reactions: No Hx Malignant Hyperthermia: No Meds Allergies/Adverse Reactions: Allergies Allergy/AdvReac Type Severity Reaction Status Date / Time No Known Allergies Allergy Verified 12/25/17 19:39 - Medications Medications: Current Medications Hydrochlorothiazide (Microzide) 12.5 mg PO DAILY [facility] Meropenem (Merrem Iv 1 Gm Premix) 50 mls @ 100 mls/hr IVPB Q12 [facility] PRN Reason: Protocol Stop: 01/04/18 10:01 Sodium Chloride (Sodium Chloride 0.9%) 1,000 mls @ 100 mls/hr IV .Q10H [facility] Last Admin: 12/26/17 12:45 Dose: 100 mls/hr Magnesium Sulfate/Dextrose (Magnesium Sulfate 1 Gm/100 Ml D5w) 1 gm in 100 mls @ 100 mls/hr IVPB ONCE ONE Stop: 12/26/17 18:08 Insulin Human Regular (Humulin R Med) 0 units SC ACHS [facility] PRN Reason: Protocol Last Admin: 12/26/17 17:11 Dose: Not Given Losartan Potassium (Cozaar) 50 mg PO DAILY [facility] Physical Exam - Constitutional Appears: Well, Non-toxic, No Acute Distress - Head Exam Head Exam: ATRAUMATIC, NORMAL INSPECTION, NORMOCEPHALIC - Eye Exam Eye Exam: EOMI, Normal appearance, PERRL - ENT Exam ENT Exam: Normal Exam - Neck Exam Neck exam: Positive for: Full Rom - Respiratory Exam Respiratory Exam: absent: Accessory Muscle Use, Chest Wall Tenderness, Decreased Breath Sounds, Rales, Rhonchi, Wheezes, Respiratory Distress, Stridor Additional comments: Crackles on the right lung base. - Cardiovascular Exam Cardiovascular Exam: Systolic Murmur (Aortic Stenosis grade II ). absent: Bradycardia, Tachycardia, JVD - GI/Abdominal Exam GI & Abdominal Exam: Soft. absent: Bruit, Diminished Bowel Sounds, Distended, Guarding, Organomegaly, Pulsatile Mass, Rebound, Tenderness - Extremities Exam Extremities exam: Positive for: full ROM, normal inspection, pedal edema (+1), pedal pulses present. Negative for: calf tenderness, joint swelling - Back Exam Back exam: absent: CVA tenderness (L), CVA tenderness (R) - Neurological Exam Neurological exam: Alert, Oriented x3 Results - Vital Signs Recent Vital Signs: Last Vital Signs Temp 97.8 F 12/26/17 17:21 Pulse 94 H 12/26/17 17:21 Resp 18 12/26/17 17:21 BP 91/58 L 12/26/17 17:21 Pulse Ox 95 12/26/17 14:00 - Labs Result Diagrams: 12/26/17 00:15 12/26/17 00:15 Labs: Laboratory Results - last 24 hr 12/26/17 12/26/17 12/26/17 03:15 04:10 07:19 pO2 144 H VBG pH 7.33 VBG pCO2 35.0 L VBG HCO3 18.5 L VBG Total CO2 19.6 L VBG O2 Sat (Calc) 99.5 H VBG Base Excess -6.6 L VBG Potassium 3.4 L Sodium 138.0 Chloride 110.0 H Glucose 231 H Lactate 2.8 H FiO2 21.0 POC Glucose (mg/dL) 216 H Venous Blood Potassium 3.4 L Urine Color Dark yellow Urine Appearance Turbid Urine pH 5.5 Ur Specific [place] 1.020 Urine Protein 30 H Urine Glucose (UA) Negative Urine Ketones Negative Urine Blood Large H Urine Nitrate Positive H Urine Bilirubin Negative Urine Urobilinogen 0.2 Ur Leukocyte Esterase Large H Urine RBC 10 - 15 Urine WBC Tntc Ur Epithelial Cells 1 - 3 Urine Bacteria Mod Assessment & Plan - Assessment and Plan (Free Text) Assessment: Patient is a 82 y/o F with PMHx of HTN, DM, nephrolithiasis (uric acid stones with recurrent hospital admissions), and aortic stenosis who presented to the ED at 12/25 at midnight for chills and shakes. Prior to ED admission, patient was found to have a 4 mm stone in the proximal left ureter with mild hydronephrosis. Patient was given x1 dose of IV Rocephin and discharged home, however, patient started to experience chills, shakes, and left flank pain. Patient returned to the ED and met criteria for sepsis; code Sepsis was initiated. Urology was consulted and patient had insertion of a left ureteral stent. Patient was sent to telemetry after the procedure for monitoring. On tele , patient had episodes of hypotension (BP ranging 80s/50s) and ICU was consulted. Patient was examined and found to be grossly asymptomatic with BP 91/ 58 (MAP 69), and in no acute distress. Patient will be monitored overnight at the ICU for any changes. Plan: Sepsis 2/2 Nephrolithiasis s/p Left Ureteral Stent - Monitor overnight in the ICU - Maintain SaO2 > 92% - f/u blood cx and and urine cx - c/w antibiotics: meropenem - c/w NS @ 100 mls/hr - ordered magnesium sulfate - wbc 2.2 with 20% bands, repeat cbc/bmp - Urology (12/26): left ureteral stent placement with no complications HTN - monitor blood pressure and vital signs - Hold BP meds for now - Most recent BP 91/58 (MAP 69) - Maintain MAP > 65 Aortic Stenosis - systolic murmur heard on exam - do not overload with fluids - ECHO: done one month ago. Follow up with patient's search engine optimization specialist (Dr. Reid). DM - maintain euglycemia - ISS - Accuchecks ACHS Case was discussed and reviewed with Attending Physician Dr. Parry. <Hang Parry - Last Filed: 12/28/17 07:17> Meds - Medications Medications: Current Medications Hydrochlorothiazide (Microzide) 12.5 mg PO DAILY [facility] Meropenem (Merrem Iv 1 Gm Premix) 50 mls @ 100 mls/hr IVPB Q12 [facility] PRN Reason: Protocol Stop: 01/04/18 10:01 Last Admin: 12/27/17 21:56 Dose: 100 mls/hr Sodium Chloride (Sodium Chloride 0.9%) 1,000 mls @ 50 mls/hr IV .Q20H [facility] Last Admin: 12/28/17 00:52 Dose: 50 mls/hr Insulin Human Regular (Humulin R Med) 0 units SC ACHS [facility] PRN Reason: Protocol Last Admin: 12/27/17 21:54 Dose: Not Given Losartan Potassium (Cozaar) 50 mg PO DAILY [facility] Results - Vital Signs Recent Vital Signs: Last Vital Signs Temp 98.6 F 12/28/17 06:00 Pulse 102 H 12/28/17 06:00 Resp 20 12/28/17 06:00 BP 111/72 12/28/17 06:00 Pulse Ox 95 12/28/17 06:00 - Labs Result Diagrams: 12/28/17 06:00 12/27/17 05:50 Labs: Laboratory Results - last 24 hr 12/28/17 06:00 WBC 17.1 H RBC 3.96 Hgb 11.5 L Hct 35.9 L MCV 90.7 MCH 29.0 MCHC 32.0 RDW 14.8 H Plt Count 109 L MPV 11.6 H Gran % 91.7 H Lymph % (Auto) 4.4 L [place] % (Auto) 3.2 Eos % (Auto) 0.6 L Baso % (Auto) 0.1 Gran # 15.67 H Lymph # (Auto) 0.8 L [place] # (Auto) 0.6 Eos # (Auto) 0.1 Baso # (Auto) 0.01 Attending/Attestation - Attestation I have personally seen and examined this patient.: Yes I have fully participated in the care of the patient.: Yes I have reviewed all pertinent clinical information: Yes Notes (Text): 12/28/17 07:16 The patient was seen and examined at the bedside. Patient care was discussed with resident Medical records, lab studies, and imaging were reviewed and management issues were discussed and formulated. Last 24H events reviewed. Agree with above treatment plans as outlined in 's note with addition of the following: Sepsis \ UTI \ Ureterolithiasis \ DM2 -hemodynamic monitoring to maintain MAP>65; currently stable -f\u ECho -o2 supplementation to maintain Spo2>90 Pao2>60; currently comfortable on NC -continue broad spectrum Abx as per ID team and f\u cultures -f\u Bun\Cr and U\o; IVF with NS -PO diet and aspiration precautions -ISS and BGM monitoring -DVT \ PUD prophylaxis
[2017-12-26] MEDS: Meropenem IV 1 gm in NS 50 ML IVPB SCH (21:26)
[2017-12-26] MEDS ORDERED: DiphenhydrAMINE 50 mg/ml Inj IVP ONE (21:45)
[2017-12-27 06:52] LABS: BASO # 0.01 K/mm3 (0.0-2.0); BASO % 0.1 % (0.0-3.0); EOS % 0.1 % (1.5-5.0); GRAN # 17.29 (1.4-6.5); GRAN % 93.5 % (50.0-68.0); LYMPH # 0.5 (1.2-3.4); LYMPH % 2.4 % (22.0-35.0); MEAN CELL VOLUME 91.2 fl (80.0-105.0); MEAN CORPUSCULAR HEMOGLOBIN 29.2 pg (25.0-35.0); MEAN PLATELET VOLUME 11.3 fl (7.0-11.0); MONO # 0.7 (0.1-0.6); MONO % 3.9 % (1.0-6.0); RBC 3.87 10^6/uL (3.5-6.1); RED CELL DISTRIBUTION WIDTH 15.1 % (11.5-14.5)
[2017-12-27 07:09] LABS: WHITE BLOOD COUNT 18.5 10^3/ul (4.5-11.0)
[2017-12-27 07:10] LABS: ALB/GLOB RATIO 1.1 (1.1-1.8); ALBUMIN 3.1 g/dL (3.0-4.8); ALT/SGPT 48 U/L (7-56); AST/SGOT 52 U/L (14-36); BLOOD UREA NITROGEN 31 mg/dL (7-21); CALCIUM 7.7 mg/dL (8.4-10.5); GFR AFRICAN-AMERICAN > 60; GFR NON-AFRICAN AMERICAN 60; HEMOGLOBIN 11.3 g/dL (12.0-16.0)
--- NOTE | 2017-12-27 08:15 | CON ---
DATE: 12/26/2017 LOCATION: The patient is in room 263, bed 1. The patient was seen earlier this morning. CHIEF COMPLAINT: back pain. HISTORY OF PRESENT ILLNESS: This is an 82-year-old female with history of hypertension, diabetes, kidney stones, cataract, and high cholesterol, was admitted through the emergency room. The patient was found to have temperatures and complained of abdominal pain, , history of kidney stones pain and fevers. She denied any headache, blurred vision, diarrhea, or constipation. No nausea or vomiting. No chest pain. No rash, no new joint pain. REVIEW OF SYSTEMS: A 12-point review of systems was performed. PAST MEDICAL HISTORY: Significant for hypertension, diabetes, kidney stones, cataract, and high cholesterol. PAST SURGICAL HISTORY: Significant for cardiac catheterization, cataract surgery, and hysterectomy. ALLERGIES: THE PATIENT HAS NO KNOWN ALLERGIES. MEDICATIONS: Include glipizide, Lipitor, losartan, and hydrochlorothiazide. PHYSICAL EXAMINATION: GENERAL: The patient is in bed. She was seen earlier this morning. VITAL SIGNS: Temperature 98, T-max is 100.8, respiratory rate 20, heart rate of 96, blood pressure is 83/50. HEENT: Unremarkable. NECK: Supple. LUNGS: Decreased breath sounds. HEART: Normal S1, S2. ABDOMEN: Soft. Mild tenderness in the left lower quadrant. There is left CVA tenderness. LABORATORY DATA: Reveals a white count of 3,2. There is 20% bandemia and coagulation is a new high, now at 0.9. Blood gases are noted. Chemistries reveal a BUN of 27, creatinine of 0.9, glucose of 216. Urinalysis is noted. , moderate bacteria. Microbiology is pending. IMAGING: The patient has a chest x-ray which was negative. Questionable left lower lobe airspace disease. No congestion. ASSESSMENT AND PLAN: This is an 82-year-old female with hypertension, diabetes, kidney stones, cataract, high cholesterol, presenting with hypotension, leukopenia, bandemia, tachycardia, fevers, and positive urinalysis. The patient is scheduled for OR cystoscopy and pigtail stent placement with; 1. Severe sepsis with urine as a source and kidney stones, we will treat the patient with meropenem. The patient was on outpatient antibiotics blood and urine culture, and Urology intervention. We will follow closely with you. Abelino Hoang MD
[2017-12-27] MEDS: Insulin Reg-MEDIUM-Coverage SC SCH ×4 (08:24→21:54)
[2017-12-27] MEDS: Sodium Chloride 0.9% 1,000 ML IV SCH ×2 (08:48→12:48)
[2017-12-27] MEDS: Meropenem IV 1 gm in NS 50 ML IVPB SCH ×2 (10:26→21:56)
--- NOTE | 2017-12-27 13:45 | CP.PCM.PN ---
Subjective - Date & Time of Evaluation Date of Evaluation: 12/27/17 Time of Evaluation: 09:10 - Subjective Subjective: Comfortable on a chair, no fevers. Objective - Vital Signs/Intake and Output Vital Signs (last 24 hours): Temp Pulse Resp BP Pulse Ox 97.9 F 98 H 33 H 120/73 98 12/27/17 12:09 12/27/17 12:00 12/27/17 12:00 12/27/17 12:00 12/27/17 12:00 Intake and Output: 12/27/17 12/27/17 06:59 18:59 Intake Total 1200 Output Total 850 Balance 350 - Medications Medications: Current Medications Hydrochlorothiazide (Microzide) 12.5 mg PO DAILY ROGERS Meropenem (Merrem Iv 1 Gm Premix) 50 mls @ 100 mls/hr IVPB Q12 ROGERS PRN Reason: Protocol Stop: 01/04/18 10:01 Last Admin: 12/27/17 10:26 Dose: 100 mls/hr Sodium Chloride (Sodium Chloride 0.9%) 1,000 mls @ 50 mls/hr IV .Q20H ROGERS Last Admin: 12/27/17 12:48 Dose: 50 mls/hr Insulin Human Regular (Humulin R Med) 0 units SC ACHS ROGERS PRN Reason: Protocol Last Admin: 12/27/17 12:47 Dose: Not Given Losartan Potassium (Cozaar) 50 mg PO DAILY ROGERS - Labs Labs: 12/27/17 05:50 12/27/17 05:50 PT 11.0 SECONDS (9.4-12.5) 12/26/17 00:15 INR 0.97 (0.93-1.08) 12/26/17 00:15 APTT 24.7 Seconds (25.1-36.5) L 12/26/17 00:15 - Constitutional Appears: Non-toxic, Chronically Ill - Head Exam Head Exam: NORMAL INSPECTION - Respiratory Exam Respiratory Exam: Decreased Breath Sounds - Cardiovascular Exam Cardiovascular Exam: +S1, +S2 - GI/Abdominal Exam GI & Abdominal Exam: Soft. absent: Tenderness Assessment and Plan - Assessment and Plan (Free Text) Plan: Assessment severe sepsis due to UTI (probably upper tract) associated with nephrolithiasis S/P left ureteral stent placement POD #1 DM HTN morbid obesity with BMI 40 cataracts dyslipidemia S/P hysterectomy Plan Continue Merrem pending blood and urine cx results will monitor clinically follow up further recommendations of Urology
--- NOTE | 2017-12-27 13:52 | CP.CCUPN ---
<Hosea Mcdonald - Last Filed: 12/27/17 14:39> CCU Subjective - Physician Review Subjective (Free Text): Hosea Mcdonald, PGY1 Critical Care Progress Note for Dr. Dillon Patient was examined at bedside this morning. Patient denied chest pain, shortness of breath, abdominal pain, pain in extremities, nausea, vomiting, and diarrhea. She says that she feels good overall. No overnight changes. Asymptomatic overnight. Latest BP was 101/59 with MAP 78. Patient is able to get out of bed to chair. A Full 12 point ROS was conducted and unremarkable except as stated above. CCU Objective - Vital Signs / Intake & Output Vital Signs (Last 4 hours): Vital Signs Temp Pulse Resp BP Pulse Ox 12/27/17 12:09 97.9 F 12/27/17 12:00 98 H 33 H 120/73 98 12/27/17 11:54 97 H 12/27/17 11:30 96 H 23 97/64 L 97 12/27/17 11:00 97 H 30 H 101/61 98 12/27/17 10:30 88 28 H 97/59 L 98 12/27/17 10:00 87 24 92/59 L 90 L Intake and Output (Last 8hrs): Intake & Output 12/26/17 12/27/17 12/27/17 22:59 06:59 14:59 Intake Total 2010 1200 Output Total 650 850 Balance 1360 350 Intake: IV 1650 1200 left antecubital 1650 1200 Oral 360 Output: Urine 650 850 Urine, Voided 650 850 Other: # Bowel Movements 2 - Physical Exam Head: Positive for: Atraumatic, Normocephalic Pupils: Positive for: PERRL Extroacular Muscles: Positive for: EOMI Ears: Positive for: Normal Mouth: Positive for: Moist Mucous Membranes Pharnyx: Positive for: Normal Nose (External): Positive for: Atraumatic, Other (Nasal cannula in place.) Nose (Internal): Positive for: Normal Inspection Neck: Positive for: Normal Range of Motion. Negative for: JVD Respiratory/Chest: Positive for: Clear to Auscultation, Good Air Exchange. Negative for: Respiratory Distress, Accessory Muscle Use, Wheezes, Rales, Rhonchi Cardiovascular: Positive for: Regular Rate and Rhythm, Murmurs (systolic murmur 2/2 aortic stenosis). Negative for: Rub, Gallop Abdomen: Positive for: Normal Bowel Sounds, Other (No CVA tenderness). Negative for: Tenderness, Distention, Peritoneal Signs, Rebound, Guarding Back: Positive for: Normal Inspection. Negative for: CVA Tenderness Upper Extremity: Positive for: Normal Inspection. Negative for: Cyanosis, Edema Lower Extremity: Positive for: Normal Inspection, Edema (+1 pitting edema), NORMAL PULSES Skin: Positive for: Warm, Dry, Normal Color. Negative for: Rashes Psychiatric: Positive for: Alert, Oriented x 3 - Medications Active Medications: Active Medications Generic Name Dose Route Start Last Admin Trade Name Freq PRN Reason Stop Dose Admin Hydrochlorothiazide 12.5 mg 12/26/17 10:00 Microzide PO DAILY ROGERS Meropenem 50 mls @ 100 mls/hr 12/26/17 10:00 12/27/17 10:26 Merrem Iv 1 Gm Premix IVPB 01/04/18 10:01 100 mls/hr Q12 ROGERS Administration Protocol Sodium Chloride 1,000 mls @ 50 mls/hr 12/27/17 12:26 12/27/17 12:48 Sodium Chloride 0.9% IV 50 mls/hr .Q20H R[facility]ERS Administration Insulin Human Regular 0 units 12/26/17 07:30 12/27/17 12:47 Humulin R Med SC Not Given ACHS ROGERS Protocol Losartan Potassium 50 mg 12/26/17 10:00 Cozaar PO DAILY ROGERS - Patient Studies Lab Studies: Microbiology Studies 12/26/17 04:10 Urine Culture - Final Urine 10-50,000 CFU/ML. MULTIPLE SPECIES. PROBABLE CONTAMINATION. Lab Studies 12/27/17 12/27/17 12/26/17 Range/Units 05:50 05:50 19:34 WBC 18.5 H D (4.5-11.0) 10^3/ul RBC 3.87 (3.5-6.1) 10^6/uL Hgb 11.3 L D (12.0-16.0) g/dL Hct 35.3 L (36.0-48.0) % MCV 91.2 (80.0-105.0) fl MCH 29.2 (25.0-35.0) pg MCHC 32.0 (31.0-37.0) g/dl RDW 15.1 H (11.5-14.5) % Plt Count 99 L (120.0-450.0) 10^3/uL MPV 11.3 H (7.0-11.0) fl Gran % 93.5 H (50.0-68.0) % Lymph % (Auto) 2.4 L (22.0-35.0) % Vigo % (Auto) 3.9 (1.0-6.0) % Eos % (Auto) 0.1 L (1.5-5.0) % Baso % (Auto) 0.1 (0.0-3.0) % Gran # 17.29 H (1.4-6.5) Lymph # (Auto) 0.5 L (1.2-3.4) [place] # (Auto) 0.7 H (0.1-0.6) Eos # (Auto) 0.0 (0.0-0.7) Baso # (Auto) 0.01 (0.0-2.0) K/mm3 Sodium 143 (132-148) mmol/L Potassium 4.0 (3.6-5.0) mmol/L Chloride 110 H (98-107) mmol/L Carbon Dioxide 22 (21-33) mmol/L Anion Gap 15 (10-20) BUN 31 H (7-21) mg/dL Creatinine 0.9 (0.7-1.2) mg/dl Est GFR ( Amer) > 60 Est GFR (Non-Af Amer) 60 Random Glucose 131 H (70-110) mg/dL Calcium 7.7 L (8.4-10.5) mg/dL Magnesium 2.3 H (1.7-2.2) mg/dL Total Bilirubin 0.6 (0.2-1.3) mg/dL AST 52 H (14-36) U/L ALT 48 (7-56) U/L Alkaline Phosphatase 188 H D (38-126) U/L Total Protein 5.8 (5.8-8.3) g/dL Albumin 3.1 (3.0-4.8) g/dL Globulin 2.8 gm/dL Albumin/Globulin Ratio 1.1 (1.1-1.8) Procalcitonin 0.32 (0.19-0.49) NG/ML Laboratory Results - last 24 hr 07/17/18 07/18/18 07/18/18 19:34 05:50 05:50 WBC 18.5 H D RBC 3.87 Hgb 11.3 L D Hct 35.3 L MCV 91.2 MCH 29.2 MCHC 32.0 RDW 15.1 H Plt Count 99 L MPV 11.3 H Gran % 93.5 H Lymph % (Auto) 2.4 L Vigo % (Auto) 3.9 Eos % (Auto) 0.1 L Baso % (Auto) 0.1 Gran # 17.29 H Lymph # (Auto) 0.5 L Vigo # (Auto) 0.7 H Eos # (Auto) 0.0 Baso # (Auto) 0.01 Sodium 143 Potassium 4.0 Chloride 110 H Carbon Dioxide 22 Anion Gap 15 BUN 31 H Creatinine 0.9 Est GFR ( Amer) > 60 Est GFR (Non-Af Amer) 60 Random Glucose 131 H Calcium 7.7 L Magnesium 2.3 H Total Bilirubin 0.6 AST 52 H ALT 48 Alkaline Phosphatase 188 H D Total Protein 5.8 Albumin 3.1 Globulin 2.8 Albumin/Globulin Ratio 1.1 Procalcitonin 0.32 Fingerstick Blood Sugar Results: 154 Review of Systems - Review of Systems All systems: reviewed and no additional remarkable complaints except (as per HPI.) Critical Care Progress Note - Extremities/Vascular Does the Patient have a Central Venous Catheter?: No Does the Patient need a Central Venous Catheter?: No Does the Patient have a Mejía Catheter?: No Does the Patient need a Mejía Catheter?: No - Prophylaxis GI Prophylaxis GI: Not Indicated - Prophylaxis DVT Prophylaxis DVT: Ambulatory - Nutrition Nutrition: Nutrition Category Date Time Status Liquid Diet [DIET] Diets 12/26/17 Lunch Ordered Assessment/Plan - Assessment and Plan (Free Text) Assessment: Patient is a 82 y/o F with PMHx of HTN, DM, nephrolithiasis (uric acid stones with recurrent hospital admissions), and aortic stenosis who presented to the ED at 12/25 at midnight for chills and shakes. Prior to ED admission, patient was found to have a 4 mm stone in the proximal left ureter with mild hydronephrosis. Patient was given x1 dose of IV Rocephin and discharged home, however, patient started to experience chills, shakes, and left flank pain. Patient returned to the ED and met criteria for sepsis; code Sepsis was initiated. Urology was consulted and patient had insertion of a left ureteral stent. Patient was sent to telemetry after the procedure for monitoring. On tele , patient had episodes of hypotension (BP ranging 80s/50s) and ICU was consulted. Patient was examined and found to be grossly asymptomatic with BP 91/ 58 (MAP 69), and in no acute distress. Patient has been monitored overnight and has remained asymptomatic with stable BP and MAP > 65. No acute issues at this time. Plan: Neuro: - Maintain normothermia - AAOx3 Pulm: - Maintain SaO2 > 92% - Patient on nasal cannula, saturating well Cardio: - No hypotension during ICU admission, MAP has been > 65 overnight - Most recent BP was 101/59 (MAP 78) - c/w fluids, do not overload because of history of aortic stenosis GI: - Liquid diet Renal: - Urology (12/26): left ureteral stent placement with no complications - replete lytes as needed Heme: - DVT ppx: SCDs - Patient is ambulatory; OOB to chair ID: - wbc improved (18.5), f/u cbc - Maintain SaO2 > 92% - Blood Cx negative x2 pre-ramirez - f/u urine cx - UA positive: protein, blood, nitrate, leukocyte esterase - c/w antibiotics - c/w fluids - Procalcitonin negative Endo: - maintain euglycemia - ISS Dispo: No acute issues at this time. Patient is hemodynamically stable and safe for transfer to telemetry. Case was discussed and reviewed with Attending Physician Dr. Dillon. <Farhad Dillon - Last Filed: 12/27/17 16:56> CCU Objective - Vital Signs / Intake & Output Vital Signs (Last 4 hours): Vital Signs Temp Pulse Resp BP Pulse Ox 12/27/17 16:09 99 H 12/27/17 15:15 97.5 F L 92 H 18 96/55 L 96 12/27/17 15:00 99 H 41 H 114/46 L 12/27/17 14:31 92 H 24 103/63 100 12/27/17 14:00 93 H 50 H 105/54 L 98 12/27/17 13:31 96 H 29 H 111/60 98 12/27/17 13:00 96 H 22 98/53 L 99 Intake and Output (Last 8hrs): Intake & Output 12/27/17 12/27/17 12/27/17 06:59 14:59 22:59 Intake Total 1200 400 Output Total 850 750 Balance 350 -350 Intake: IV 1200 left antecubital 1200 Oral 400 Output: Urine 850 750 Urine, Voided 850 750 - Medications Active Medications: Active Medications Generic Name Dose Route Start Last Admin Trade Name Freq PRN Reason Stop Dose Admin Hydrochlorothiazide 12.5 mg 12/26/17 10:00 Microzide PO DAILY ROGERS Meropenem 50 mls @ 100 mls/hr 12/26/17 10:00 12/27/17 10:26 Merrem Iv 1 Gm Premix IVPB 01/04/18 10:01 100 mls/hr Q12 ROGERS Administration Protocol Sodium Chloride 1,000 mls @ 50 mls/hr 12/27/17 12:26 12/27/17 12:48 Sodium Chloride 0.9% IV 50 mls/hr .Q20H ROGERS Administration Insulin Human Regular 0 units 12/26/17 07:30 12/27/17 12:47 Humulin R Med SC Not Given ACHS ROGERS Protocol Losartan Potassium 50 mg 12/26/17 10:00 Cozaar PO DAILY ROGERS - Patient Studies Lab Studies: Microbiology Studies 12/26/17 04:10 Urine Culture - Final Urine 10-50,000 CFU/ML. MULTIPLE SPECIES. PROBABLE CONTAMINATION. Lab Studies 12/27/17 12/27/17 12/26/17 Range/Units 05:50 05:50 19:34 WBC 18.5 H D (4.5-11.0) 10^3/ul RBC 3.87 (3.5-6.1) 10^6/uL Hgb 11.3 L D (12.0-16.0) g/dL Hct 35.3 L (36.0-48.0) % MCV 91.2 (80.0-105.0) fl MCH 29.2 (25.0-35.0) pg MCHC 32.0 (31.0-37.0) g/dl RDW 15.1 H (11.5-14.5) % Plt Count 99 L (120.0-450.0) 10^3/uL MPV 11.3 H (7.0-11.0) fl Gran % 93.5 H (50.0-68.0) % Lymph % (Auto) 2.4 L (22.0-35.0) % Vigo % (Auto) 3.9 (1.0-6.0) % Eos % (Auto) 0.1 L (1.5-5.0) % Baso % (Auto) 0.1 (0.0-3.0) % Gran # 17.29 H (1.4-6.5) Lymph # (Auto) 0.5 L (1.2-3.4) V[place] # (Auto) 0.7 H (0.1-0.6) Eos # (Auto) 0.0 (0.0-0.7) Baso # (Auto) 0.01 (0.0-2.0) K/mm3 Sodium 143 (132-148) mmol/L Potassium 4.0 (3.6-5.0) mmol/L Chloride 110 H (98-107) mmol/L Carbon Dioxide 22 (21-33) mmol/L Anion Gap 15 (10-20) BUN 31 H (7-21) mg/dL Creatinine 0.9 (0.7-1.2) mg/dl Est GFR ( Amer) > 60 Est GFR (Non-Af Amer) 60 Random Glucose 131 H (70-110) mg/dL Calcium 7.7 L (8.4-10.5) mg/dL Magnesium 2.3 H (1.7-2.2) mg/dL Total Bilirubin 0.6 (0.2-1.3) mg/dL AST 52 H (14-36) U/L ALT 48 (7-56) U/L Alkaline Phosphatase 188 H D (38-126) U/L Total Protein 5.8 (5.8-8.3) g/dL Albumin 3.1 (3.0-4.8) g/dL Globulin 2.8 gm/dL Albumin/Globulin Ratio 1.1 (1.1-1.8) Procalcitonin 0.32 (0.19-0.49) NG/ML Laboratory Results - last 24 hr 12/26/17 12/27/17 12/27/17 19:34 05:50 05:50 WBC 18.5 H D RBC 3.87 Hgb 11.3 L D Hct 35.3 L MCV 91.2 MCH 29.2 MCHC 32.0 RDW 15.1 H Plt Count 99 L MPV 11.3 H Gran % 93.5 H Lymph % (Auto) 2.4 L [place] % (Auto) 3.9 Eos % (Auto) 0.1 L Baso % (Auto) 0.1 Gran # 17.29 H Lymph # (Auto) 0.5 L [place] # (Auto) 0.7 H Eos # (Auto) 0.0 Baso # (Auto) 0.01 Sodium 143 Potassium 4.0 Chloride 110 H Carbon Dioxide 22 Anion Gap 15 BUN 31 H Creatinine 0.9 Est GFR ( Amer) > 60 Est GFR (Non-Af Amer) 60 Random Glucose 131 H Calcium 7.7 L Magnesium 2.3 H Total Bilirubin 0.6 AST 52 H ALT 48 Alkaline Phosphatase 188 H D Total Protein 5.8 Albumin 3.1 Globulin 2.8 Albumin/Globulin Ratio 1.1 Procalcitonin 0.32 Critical Care Progress Note - Nutrition Nutrition: Nutrition Category Date Time Status Consistent Carbohydrate [DIET] Diets 12/27/17 Dinner Ordered Attending/Attestation - Attestation I have personally seen and examined this patient.: Yes I have fully participated in the care of the patient.: Yes I have reviewed all pertinent clinical information: Yes Notes (Text): 12/27/17 16:54 82 yo female was admitted overnight with severe sepsis due to UTI. Was fluid resuscitated, started on abx, hemodynamically substantially improved. ok to downgrade to tele ccm time 40 min
--- NOTE | 2017-12-27 17:20 | CP.PCM.PN ---
<Ronen Muhammad - Last Filed: 12/27/17 17:16> Subjective - Date & Time of Evaluation Date of Evaluation: 12/27/17 Time of Evaluation: 17:16 - Subjective Subjective: Medicine progress note - Sonal Muhammad PGY3 Patient seen and examined at bedside. No acute overnight events or new complaints reported. She was transferred to the ICU yesterday afternoon due to hypotension which was fluid responsive. Since then she had been hemodynamically stable and has not required pressors. She is currently being monitored on telemetry. Denies chest pain, palpitations, SOB. Objective - Vital Signs/Intake and Output Vital Signs (last 24 hours): Temp Pulse Resp BP Pulse Ox 97.5 F L 99 H 18 96/55 L 96 12/27/17 15:15 12/27/17 16:09 12/27/17 15:15 12/27/17 15:15 12/27/17 15:15 Intake and Output: 12/27/17 12/27/17 06:59 18:59 Intake Total 1200 400 Output Total 850 750 Balance 350 -350 - Medications Medications: Current Medications Hydrochlorothiazide (Microzide) 12.5 mg PO DAILY ROGERS Meropenem (Merrem Iv 1 Gm Premix) 50 mls @ 100 mls/hr IVPB Q12 [facility]ERS PRN Reason: Protocol Stop: 01/04/18 10:01 Last Admin: 12/27/17 10:26 Dose: 100 mls/hr Sodium Chloride (Sodium Chloride 0.9%) 1,000 mls @ 50 mls/hr IV .Q20H ROGERS Last Admin: 12/27/17 12:48 Dose: 50 mls/hr Insulin Human Regular (Humulin R Med) 0 units SC ACHS ROGERS PRN Reason: Protocol Last Admin: 12/27/17 12:47 Dose: Not Given Losartan Potassium (Cozaar) 50 mg PO DAILY ROGERS - Labs Labs: 12/27/17 05:50 12/27/17 05:50 PT 11.0 SECONDS (9.4-12.5) 12/26/17 00:15 INR 0.97 (0.93-1.08) 12/26/17 00:15 APTT 24.7 Seconds (25.1-36.5) L 12/26/17 00:15 - Constitutional Appears: No Acute Distress - Head Exam Head Exam: ATRAUMATIC, NORMOCEPHALIC - Eye Exam Eye Exam: EOMI Pupil Exam: PERRL - ENT Exam ENT Exam: Mucous Membranes Moist - Respiratory Exam Respiratory Exam: Decreased Breath Sounds. absent: Rales, Rhonchi, Wheezes - Cardiovascular Exam Cardiovascular Exam: +S1, +S2. absent: Gallop, Rubs - GI/Abdominal Exam GI & Abdominal Exam: Soft. absent: Distended, Firm, Guarding, Rigid, Tenderness , Rebound - Extremities Exam Extremities Exam: Pedal Edema - Neurological Exam Neurological Exam: Alert, Awake, Oriented x3 - Psychiatric Exam Psychiatric exam: Normal Affect, Normal Mood - Skin Skin Exam: Dry, Intact, Normal Color, Warm Assessment and Plan - Assessment and Plan (Free Text) Plan: 82yo female with history of nephrolithiasis, diabetes mellitus type 2, hypertension presents with c/o left-sided flank pain associated with subjective fever/chills secondary to left-sided ureterolithiasis 1. Sepsis secondary to left-sided ureterolithiasis 2. Hypotension, resolved 3. DM type 2 4. Hx of hypertension -Patient is s/p left ureteral stent placement by urology -She had episodes of hypotension and was observed in the ICU overnight. She has been hemodynamically stable and fluid responsive with MAP > 65 -She is presently on meropenem as per ID recommendations -Tylenol PRN for fevers, zofran PRN for nausea/vomiting -Insulin sliding scale with fingerstick coverage for diabetes -Liquid diet to be advanced as tolerated -PT/OT -Blood cultures with no growth over 24hrs Patient seen and case discussed/reviewed with attending Dr. Ritchie <Juan Miguel Ritchie S - Last Filed: 12/27/17 22:27> Objective - Vital Signs/Intake and Output Vital Signs (last 24 hours): Temp Pulse Resp BP Pulse Ox 98.3 F 99 H 17 104/67 96 12/27/17 17:43 12/27/17 18:00 12/27/17 17:43 12/27/17 17:43 12/27/17 15:15 Intake and Output: 12/27/17 12/28/17 18:59 06:59 Intake Total 780 Output Total 900 Balance -120 - Medications Medications: Current Medications Hydrochlorothiazide (Microzide) 12.5 mg PO DAILY ROGERS Meropenem (Merrem Iv 1 Gm Premix) 50 mls @ 100 mls/hr IVPB Q12 ROGERS PRN Reason: Protocol Stop: 01/04/18 10:01 Last Admin: 12/27/17 21:56 Dose: 100 mls/hr Sodium Chloride (Sodium Chloride 0.9%) 1,000 mls @ 50 mls/hr IV .Q20H [facility] Last Admin: 12/27/17 12:48 Dose: 50 mls/hr Insulin Human Regular (Humulin R Med) 0 units SC ACHS ROGERS PRN Reason: Protocol Last Admin: 12/27/17 21:54 Dose: Not Given Losartan Potassium (Cozaar) 50 mg PO DAILY ROGERS - Labs Labs: 12/27/17 05:50 12/27/17 05:50 PT 11.0 SECONDS (9.4-12.5) 12/26/17 00:15 INR 0.97 (0.93-1.08) 12/26/17 00:15 APTT 24.7 Seconds (25.1-36.5) L 12/26/17 00:15 Assessment and Plan - Assessment and Plan (Free Text) Plan: Pt seen and examined. I have reviewed the note of the medical office technologist and agree with it. I have discussed the assessment and plan with the resident. I have reviewed the patient's labs and medications. Her sepsis is improving. BP is better. She is aware and alert. She says that she feels better today. She will be transferred out of the ICU. She will have her diet advanced.
[2017-12-28] MEDS: Sodium Chloride 0.9% 1,000 ML IV SCH ×3 (00:52→22:20)
[2017-12-28 07:03] LABS: BASO # 0.01 K/mm3 (0.0-2.0); BASO % 0.1 % (0.0-3.0); EOS # 0.1 (0.0-0.7); EOS % 0.6 % (1.5-5.0); GRAN # 15.67 (1.4-6.5); GRAN % 91.7 % (50.0-68.0); HEMOGLOBIN 11.5 g/dL (12.0-16.0); LYMPH # 0.8 (1.2-3.4); LYMPH % 4.4 % (22.0-35.0); MEAN CELL VOLUME 90.7 fl (80.0-105.0); MEAN PLATELET VOLUME 11.6 fl (7.0-11.0); MONO # 0.6 (0.1-0.6); MONO % 3.2 % (1.0-6.0); RBC 3.96 10^6/uL (3.5-6.1); RED CELL DISTRIBUTION WIDTH 14.8 % (11.5-14.5); WHITE BLOOD COUNT 17.1 10^3/ul (4.5-11.0)
[2017-12-28 07:19] LABS: ALT/SGPT 39 U/L (7-56); AST/SGOT 44 U/L (14-36); BLOOD UREA NITROGEN 23 mg/dL (7-21); CALCIUM 7.7 mg/dL (8.4-10.5); GFR AFRICAN-AMERICAN > 60; GFR NON-AFRICAN AMERICAN > 60
--- NOTE | 2017-12-28 08:22 | CP.PCM.PN ---
<Ronen Muhammad - Last Filed: 12/28/17 08:18> Subjective - Date & Time of Evaluation Date of Evaluation: 12/28/17 Time of Evaluation: 08:18 - Subjective Subjective: Medicine progress note for Dr. Ritchie's service - Sonal Muhammad PGY3 Patient seen and examined at bedside this morning. No acute overnight events or new complaints reported. Denies chest pain, palpitations, SOB. Doing well this morning. Objective - Vital Signs/Intake and Output Vital Signs (last 24 hours): Temp Pulse Resp BP Pulse Ox 98.6 F 102 H 20 111/72 95 12/28/17 06:00 12/28/17 06:00 12/28/17 06:00 12/28/17 06:00 12/28/17 06:00 Intake and Output: 12/28/17 12/28/17 06:59 18:59 Intake Total 770 Balance 770 - Medications Medications: Current Medications Hydrochlorothiazide (Microzide) 12.5 mg PO DAILY ROGERS Meropenem (Merrem Iv 1 Gm Premix) 50 mls @ 100 mls/hr IVPB Q12 ROGERS PRN Reason: Protocol Stop: 01/04/18 10:01 Last Admin: 12/27/17 21:56 Dose: 100 mls/hr Sodium Chloride (Sodium Chloride 0.9%) 1,000 mls @ 50 mls/hr IV .Q20H ROGERS Last Admin: 12/28/17 00:52 Dose: 50 mls/hr Insulin Human Regular (Humulin R Med) 0 units SC ACHS ROGERS PRN Reason: Protocol Last Admin: 12/27/17 21:54 Dose: Not Given Losartan Potassium (Cozaar) 50 mg PO DAILY ROGERS - Labs Labs: 12/28/17 06:00 12/28/17 06:00 PT 11.0 SECONDS (9.4-12.5) 12/26/17 00:15 INR 0.97 (0.93-1.08) 12/26/17 00:15 APTT 24.7 Seconds (25.1-36.5) L 12/26/17 00:15 - Constitutional Appears: No Acute Distress - Head Exam Head Exam: ATRAUMATIC, NORMAL INSPECTION, NORMOCEPHALIC - Eye Exam Eye Exam: EOMI, PERRL - ENT Exam ENT Exam: Mucous Membranes Moist - Neck Exam Neck Exam: Normal Inspection - Respiratory Exam Respiratory Exam: absent: Rales, Rhonchi, Wheezes - Cardiovascular Exam Cardiovascular Exam: RRR, +S1, +S2. absent: Gallop, Rubs - GI/Abdominal Exam GI & Abdominal Exam: Soft. absent: Distended, Firm, Guarding, Rigid, Tenderness , Rebound - Neurological Exam Neurological Exam: Alert, Awake, CN II-XII Intact, Oriented x3 - Psychiatric Exam Psychiatric exam: Normal Affect, Normal Mood - Skin Skin Exam: Dry, Intact, Normal Color, Warm Assessment and Plan - Assessment and Plan (Free Text) Plan: 82yo female with history of nephrolithiasis, diabetes mellitus type 2, hypertension presents with c/o left-sided flank pain associated with subjective fever/chills secondary to left-sided ureterolithiasis 1. Sepsis secondary to left-sided ureterolithiasis 2. Hypotension, resolved 3. DM type 2 4. Hx of hypertension -Patient is s/p left ureteral stent placement by urology -She had episodes of hypotension and was observed in the ICU previously and has been hemodynamically stable and fluid responsive with MAP > 65 -She is presently on meropenem as per ID recommendations -Her hypertension medications are on hold as she is normotensive at this time -Tylenol PRN for fevers, zofran PRN for nausea/vomiting -Insulin sliding scale with fingerstick coverage for diabetes -Diet advanced -Blood cultures with no growth over 48hrs -PT/OT Patient seen and case discussed/reviewed with attending Dr. Ritchie <Juan Miguel Ritchie S - Last Filed: 12/28/17 21:24> Objective - Vital Signs/Intake and Output Vital Signs (last 24 hours): Temp Pulse Resp BP Pulse Ox 98.3 F 91 H 18 118/69 95 12/28/17 17:43 12/28/17 17:43 12/28/17 17:43 12/28/17 17:43 12/28/17 06:00 Intake and Output: 12/28/17 12/29/17 18:59 06:59 Intake Total 1140 Output Total 1300 Balance -160 - Medications Medications: Current Medications Hydrochlorothiazide (Microzide) 12.5 mg PO DAILY ROGERS Meropenem (Merrem Iv 1 Gm Premix) 50 mls @ 100 mls/hr IVPB Q12 ROGERS PRN Reason: Protocol Stop: 01/04/18 10:01 Last Admin: 12/28/17 10:01 Dose: 100 mls/hr Sodium Chloride (Sodium Chloride 0.9%) 1,000 mls @ 50 mls/hr IV .Q20H [facility] Last Admin: 12/28/17 08:30 Dose: Not Given Insulin Human Regular (Humulin R Med) 0 units SC ACHS ROGERS PRN Reason: Protocol Last Admin: 12/28/17 16:43 Dose: 3 units Losartan Potassium (Cozaar) 50 mg PO DAILY ROGERS - Labs Labs: 12/28/17 06:00 12/28/17 06:00 PT 11.0 SECONDS (9.4-12.5) 12/26/17 00:15 INR 0.97 (0.93-1.08) 12/26/17 00:15 APTT 24.7 Seconds (25.1-36.5) L 12/26/17 00:15 Assessment and Plan - Assessment and Plan (Free Text) Plan: Pt seen and examined. I have reviewed the note of the medical receptionist and agree with it. I have discussed the assessment and plan with the resident. I have reviewed the patient's labs and medications. The pt's WCC remains elevated. It should be improving. If it remains elevated, may need Hem/Onc evaluation. She has improved clinically. BP is controlled. Eating well. No pain.
[2017-12-28] MEDS: Insulin Reg-MEDIUM-Coverage SC SCH ×5 (08:29→22:00)
[2017-12-28] MEDS: Meropenem IV 1 gm in NS 50 ML IVPB SCH ×3 (10:01→22:20)
--- NOTE | 2017-12-28 12:39 | CP.PCM.PN ---
Subjective - Date & Time of Evaluation Date of Evaluation: 12/28/17 Time of Evaluation: 10:10 - Subjective Subjective: No fevers, not in distress. Objective - Vital Signs/Intake and Output Vital Signs (last 24 hours): Temp Pulse Resp BP Pulse Ox 98.6 F 102 H 20 111/72 95 12/28/17 06:00 12/28/17 06:00 12/28/17 06:00 12/28/17 06:00 12/28/17 06:00 Intake and Output: 12/27/17 12/28/17 18:59 06:59 Intake Total 780 770 Output Total 900 Balance -120 770 - Medications Medications: Current Medications Hydrochlorothiazide (Microzide) 12.5 mg PO DAILY ROGERS Meropenem (Merrem Iv 1 Gm Premix) 50 mls @ 100 mls/hr IVPB Q12 ROGERS PRN Reason: Protocol Stop: 01/04/18 10:01 Last Admin: 12/27/17 21:56 Dose: 100 mls/hr Sodium Chloride (Sodium Chloride 0.9%) 1,000 mls @ 50 mls/hr IV .Q20H ROGERS Last Admin: 12/28/17 00:52 Dose: 50 mls/hr Insulin Human Regular (Humulin R Med) 0 units SC ACHS ROGERS PRN Reason: Protocol Last Admin: 12/27/17 21:54 Dose: Not Given Losartan Potassium (Cozaar) 50 mg PO DAILY ROGERS - Labs Labs: 12/27/17 05:50 12/27/17 05:50 PT 11.0 SECONDS (9.4-12.5) 12/26/17 00:15 INR 0.97 (0.93-1.08) 12/26/17 00:15 APTT 24.7 Seconds (25.1-36.5) L 12/26/17 00:15 - Constitutional Appears: Chronically Ill - Head Exam Head Exam: NORMAL INSPECTION - Respiratory Exam Respiratory Exam: Decreased Breath Sounds - Cardiovascular Exam Cardiovascular Exam: +S1, +S2 - GI/Abdominal Exam GI & Abdominal Exam: Soft. absent: Tenderness Assessment and Plan - Assessment and Plan (Free Text) Plan: Assessment severe sepsis due to UTI (probably upper tract) associated with nephrolithiasis S/P left ureteral stent placement POD #2 DM HTN morbid obesity with BMI 40 cataracts dyslipidemia S/P hysterectomy Plan Continue Merrem; urine cx showing multiple species (probably contamination); blood cx are negative - should aim for 10-14 days of antibiotics will continue to monitor clinically follow up further recommendations of Urology
--- NOTE | 2017-12-28 19:24 | PN ---
DATE: 12/28/2017 POSTOPERATIVE PROGRESS NOTE SUBJECTIVE: The patient is feeling better. She is afebrile. Temperature of 98.3, pulse of 91, BP 118/69, respirations 18. She is status post stent placement for obstructing stone with fever and apparent sepsis. Blood cultures have no growth after 48 hours. Her urine culture was 10,000 to 50,000 colonies of multiple species. IMPRESSION AND PLAN: The patient is recovering from a likely septic episode. Her WBC count was 2.2 on admission yue after the procedure to 18.5 and is now 17.1. Creatinine 0.6 with a GFR greater than 60. Blood cultures are preliminarily negative; however, the patient did appear to have sepsis. She still continues to have some tachycardia and mild hypotension. PLAN: Continue IV fluids and antibiotics. Continue medical treatment and Cardiology consultation. Urologically, when the patient has recovered, she will follow up in my office and we will plan for stent removal, possible ureteroscopy with stent removal. Rigoberto Florence MD
[2017-12-29 06:40] VITALS: O2SAT 96
[2017-12-29 06:53] LABS: BASO # 0.02 K/mm3 (0.0-2.0); BASO % 0.2 % (0.0-3.0); EOS # 0.1 (0.0-0.7); EOS % 0.7 % (1.5-5.0); GRAN # 10.12 (1.4-6.5); GRAN % 84.2 % (50.0-68.0); HEMOGLOBIN 11.9 g/dL (12.0-16.0); LYMPH # 1.2 (1.2-3.4); LYMPH % 9.9 % (22.0-35.0); MEAN CELL VOLUME 89.4 fl (80.0-105.0); MEAN CORPUSCULAR HEMOGLOBIN 29.5 pg (25.0-35.0); MONO # 0.6 (0.1-0.6); RBC 4.04 10^6/uL (3.5-6.1); RED CELL DISTRIBUTION WIDTH 14.6 % (11.5-14.5)
[2017-12-29 07:08] LABS: ALB/GLOB RATIO 1.1 (1.1-1.8); ALBUMIN 3.2 g/dL (3.0-4.8); ALT/SGPT 51 U/L (7-56); AST/SGOT 32 U/L (14-36); BLOOD UREA NITROGEN 20 mg/dL (7-21); CALCIUM 8.5 mg/dL (8.4-10.5); GFR AFRICAN-AMERICAN > 60; GFR NON-AFRICAN AMERICAN > 60
[2017-12-29] MEDS: Insulin Reg-MEDIUM-Coverage SC SCH ×2 (07:30→11:30)
[2017-12-29] MEDS: Meropenem IV 1 gm in NS 50 ML IVPB SCH (09:45)
--- NOTE | 2017-12-29 12:32 | CP.PCM.DIS ---
<Ronen Muhammad - Last Filed: 12/29/17 20:13> Provider - Provider Date of Admission: 12/26/17 03:04 Attending physician: Juan Miguel Ritchie MD Primary care physician: Carlene Han MD Consults: ID - Dr. Hutchins Urology - Dr. Florence ICU Time Spent in preparation of Discharge (in minutes): 45 Hospital Course - Lab Results Lab Results: Micro Results 12/26/17 20:15 Nose MRSA Culture (Admit) - Final MRSA NOT DETECTED 12/26/17 04:10 Urine Urine Culture - Final 10-50,000 CFU/ML. MULTIPLE SPECIES. PROBABLE CONTAMINATION. Most Recent Lab Values WBC 12.0 10^3/ul (4.5-11.0) H D 12/29/17 06:30 RBC 4.04 10^6/uL (3.5-6.1) 12/29/17 06:30 Hgb 11.9 g/dL (12.0-16.0) L 12/29/17 06:30 Hct 36.1 % (36.0-48.0) 12/29/17 06:30 MCV 89.4 fl (80.0-105.0) 12/29/17 06:30 MCH 29.5 pg (25.0-35.0) 12/29/17 06:30 MCHC 33.0 g/dl (31.0-37.0) 12/29/17 06:30 RDW 14.6 % (11.5-14.5) H 12/29/17 06:30 Plt Count 121 10^3/uL (120.0-450.0) 12/29/17 06:30 MPV 11.0 fl (7.0-11.0) 12/29/17 06:30 Gran % 84.2 % (50.0-68.0) H 12/29/17 06:30 Lymph % (Auto) 9.9 % (22.0-35.0) L 12/29/17 06:30 Bates % (Auto) 5.0 % (1.0-6.0) 12/29/17 06:30 Eos % (Auto) 0.7 % (1.5-5.0) L 12/29/17 06:30 Baso % (Auto) 0.2 % (0.0-3.0) 12/29/17 06:30 Gran # 10.12 (1.4-6.5) H 12/29/17 06:30 Lymph # (Auto) 1.2 (1.2-3.4) 12/29/17 06:30 Bates # (Auto) 0.6 (0.1-0.6) 12/29/17 06:30 Eos # (Auto) 0.1 (0.0-0.7) 12/29/17 06:30 Baso # (Auto) 0.02 K/mm3 (0.0-2.0) 12/29/17 06:30 Neutrophils % (Manual) 65 % (50.0-70.0) 12/26/17 00:15 Band Neutrophils % 20 % (0-2) H* 12/26/17 00:15 Lymphocytes % (Manual) 9 % (22.0-35.0) L 12/26/17 00:15 Atypical Lymphs % 1 % (0.0-0.0) H 12/26/17 00:15 Monocytes % (Manual) 1 % (1.0-6.0) 12/26/17 00:15 Eosinophils % (Manual) 1 % (0.0-3.0) 12/26/17 00:15 Metamyelocytes % 2 % 12/26/17 00:15 Myelocytes % 1 % 12/26/17 00:15 Platelet Evaluation Low (NORMAL) 12/26/17 00:15 PT 11.0 SECONDS (9.4-12.5) 12/26/17 00:15 INR 0.97 (0.93-1.08) 12/26/17 00:15 APTT 24.7 Seconds (25.1-36.5) L 12/26/17 00:15 pO2 144 mm/Hg (30-55) H 12/26/17 03:15 VBG pH 7.33 (7.32-7.43) 12/26/17 03:15 VBG pCO2 35.0 (40-60) L 12/26/17 03:15 VBG HCO3 18.5 mmol/l (21-28) L 12/26/17 03:15 VBG Total CO2 19.6 mmol.L (22-28) L 12/26/17 03:15 VBG O2 Sat (Calc) 99.5 % (40-65) H 12/26/17 03:15 VBG Base Excess -6.6 mmol/L (0.0-2.0) L 12/26/17 03:15 VBG Potassium 3.4 mmol/L (3.6-5.2) L 12/26/17 03:15 Sodium 138.0 mmol/L (132-148) 12/26/17 03:15 Chloride 110.0 mmol/L (98-107) H 12/26/17 03:15 Glucose 231 mg/dl (65-105) H 12/26/17 03:15 Lactate 2.8 mmol/L (0.7-2.1) H 12/26/17 03:15 FiO2 21.0 % 12/26/17 03:15 Sodium 144 mmol/L (132-148) 12/29/17 06:30 Potassium 4.0 mmol/L (3.6-5.0) 12/29/17 06:30 Chloride 111 mmol/L (98-107) H 12/29/17 06:30 Carbon Dioxide 25 mmol/L (21-33) 12/29/17 06:30 Anion Gap 12 (10-20) 12/29/17 06:30 BUN 20 mg/dL (7-21) 12/29/17 06:30 Creatinine 0.6 mg/dl (0.7-1.2) L 12/29/17 06:30 Est GFR ( Amer) > 60 12/29/17 06:30 Est GFR (Non-Af Amer) > 60 12/29/17 06:30 POC Glucose (mg/dL) 199 mg/dL (65-110) H 12/29/17 07:34 Random Glucose 224 mg/dL (70-110) H 12/29/17 06:30 Calcium 8.5 mg/dL (8.4-10.5) 12/29/17 06:30 Phosphorus 3.6 mg/dL (2.5-4.5) 12/26/17 00:15 Magnesium 2.4 mg/dL (1.7-2.2) H 12/28/17 06:00 Total Bilirubin 0.8 mg/dL (0.2-1.3) 12/29/17 06:30 AST 32 U/L (14-36) 12/29/17 06:30 ALT 51 U/L (7-56) 12/29/17 06:30 Alkaline Phosphatase 161 U/L (38-126) H D 12/29/17 06:30 Total Protein 6.2 g/dL (5.8-8.3) 12/29/17 06:30 Albumin 3.2 g/dL (3.0-4.8) 12/29/17 06:30 Globulin 3.0 gm/dL 12/29/17 06:30 Albumin/Globulin Ratio 1.1 (1.1-1.8) 12/29/17 06:30 Procalcitonin 0.32 NG/ML (0.19-0.49) 12/26/17 19:34 Venous Blood Potassium 3.4 mmol/L (3.6-5.2) L 12/26/17 03:15 Urine Color Dark yellow (YELLOW) 12/26/17 04:10 Urine Appearance Turbid (CLEAR) 12/26/17 04:10 Urine pH 5.5 (4.7-8.0) 12/26/17 04:10 Ur Specific [place] 1.020 (1.005-1.035) 12/26/17 04:10 Urine Protein 30 mg/dL (<30 mg/dL) H 12/26/17 04:10 Urine Glucose (UA) Negative mg/dL (NEGATIVE) 12/26/17 04:10 Urine Ketones Negative mg/dL (NEGATIVE) 12/26/17 04:10 Urine Blood Large (NEGATIVE) H 12/26/17 04:10 Urine Nitrate Positive (NEGATIVE) H 12/26/17 04:10 Urine Bilirubin Negative (NEGATIVE) 12/26/17 04:10 Urine Urobilinogen 0.2 E.U./dL (<1 E.U./dL) 12/26/17 04:10 Ur Leukocyte Esterase Large Valentin/uL (NEGATIVE) H 12/26/17 04:10 Urine RBC 10 - 15 /hpf (0-2) 12/26/17 04:10 Urine WBC Tntc /hpf (0-6) 12/26/17 04:10 Ur Epithelial Cells 1 - 3 /hpf (0-5) 12/26/17 04:10 Urine Bacteria Mod (NEG) 12/26/17 04:10 - Hospital Course Hospital Course: 82yo female with past medical history of hypertension, diabetes, and nephrolithiasis [place] [facility] [place]/o left-sided flank pain, subjective fevers and chills. She reported having been seen previously in the ED a day prior and told she had a left-sided ureteral stone. She was subsequently discharged on cephalexin and pain medication however began having worsening chills/shaking and decided to return to the ED. On evaluation, she was noted to have a WBC count of 2.2 with 20% bands, positive urinalysis and a lactate of 3.5. Code sepsis was called. She was treated with IV antibiotics (meropenem), IV fluid hydration and urology as well as infectious disease was consulted for evaluation. She was underwent left ureteral stent placement by Dr. Florence and was subsequently admitted to the ICU due to concerns of hypotension with SBP in the 80's. She responded to fluid hydration and did not require pressor support. Blood cultures revealed no growth and urine culture was deemed contaminated with multiple species. Patient improved over the course of her hospitalization and had improving WBC count and was afebrile post procedure. ID recommended to continue meropenem to complete a 10-14 day course. Patient wished to be sent home on IV antibiotics and she was setup via home infusion services to receive the remainder of her antibiotic treatment. A midline was placed and she was subsequently discharged with instructions to follow up with her primary doctor and urologist within 1 week of discharge. She was instructed that the pigtail catheter placed by urology would need to be removed and she must make an appointment with Dr. Florence to follow up. Patient's niece and sister were at bedside and instructions provided to family as well. Discharge Exam - Head Exam Head Exam: ATRAUMATIC, NORMAL INSPECTION, NORMOCEPHALIC - Eye Exam Eye Exam: EOMI Pupil Exam: PERRL - ENT Exam ENT Exam: Mucous Membranes Moist - Respiratory Exam Respiratory Exam: Clear to PA & Lateral. absent: Rales, Rhonchi, Wheezes - Cardiovascular Exam Cardiovascular Exam: RRR, +S1, +S2. absent: Gallop, Rubs - GI/Abdominal Exam GI & Abdominal Exam: Normal Bowel Sounds, Soft. absent: Distended, Firm, Guarding, Tenderness - Extremities Exam Extremities exam: pedal edema, pedal pulses present - Neurological Exam Neurological exam: Alert, CN II-XII Intact, Oriented x3 - Psychiatric Exam Psychiatric exam: Normal Affect, Normal Mood - Skin Skin Exam: Dry, Intact, Normal Color, Warm Discharge Plan - Follow Up Plan Condition: STABLE Disposition: HOME/ ROUTINE Instructions: Urinary Tract Infection in Women (DC), Urinary Tract Infection in Men (DC), Dysuria (GEN) Additional Instructions: 1. Follow up with your primary doctor, Dr. Han within 1 week of discharge. 2. Follow up with your urologist, Dr. Florence within 1-2 weeks of discharge. Please make an appointment with his office. The stent placed must be removed per urology recommendations. 3. Continue your antibiotics as ordered to complete a 10-14 day course. 4. Return to the emergency room should you have a worsening of your symptoms/ condition. Referrals: Carlene Han MD [Primary Care Provider] - <Juan Miguel Ritchie - Last Filed: 12/31/17 08:31> Provider - Provider Date of Admission: 12/26/17 03:04 Attending physician: Juan Miguel Ritchie MD Primary care physician: Carlene Han MD Hospital Course - Lab Results Lab Results: Micro Results 12/26/17 20:15 Nose MRSA Culture (Admit) - Final MRSA NOT DETECTED 12/26/17 04:10 Urine Urine Culture - Final 10-50,000 CFU/ML. MULTIPLE SPECIES. PROBABLE CONTAMINATION. Most Recent Lab Values WBC 12.0 10^3/ul (4.5-11.0) H D 12/29/17 06:30 RBC 4.04 10^6/uL (3.5-6.1) 12/29/17 06:30 Hgb 11.9 g/dL (12.0-16.0) L 12/29/17 06:30 Hct 36.1 % (36.0-48.0) 12/29/17 06:30 MCV 89.4 fl (80.0-105.0) 12/29/17 06:30 MCH 29.5 pg (25.0-35.0) 12/29/17 06:30 MCHC 33.0 g/dl (31.0-37.0) 12/29/17 06:30 RDW 14.6 % (11.5-14.5) H 12/29/17 06:30 Plt Count 121 10^3/uL (120.0-450.0) 12/29/17 06:30 MPV 11.0 fl (7.0-11.0) 12/29/17 06:30 Gran % 84.2 % (50.0-68.0) H 12/29/17 06:30 Lymph % (Auto) 9.9 % (22.0-35.0) L 12/29/17 06:30 Bates % (Auto) 5.0 % (1.0-6.0) 12/29/17 06:30 Eos % (Auto) 0.7 % (1.5-5.0) L 12/29/17 06:30 Baso % (Auto) 0.2 % (0.0-3.0) 12/29/17 06:30 Gran # 10.12 (1.4-6.5) H 12/29/17 06:30 Lymph # (Auto) 1.2 (1.2-3.4) 12/29/17 06:30 Bates # (Auto) 0.6 (0.1-0.6) 12/29/17 06:30 Eos # (Auto) 0.1 (0.0-0.7) 12/29/17 06:30 Baso # (Auto) 0.02 K/mm3 (0.0-2.0) 12/29/17 06:30 Neutrophils % (Manual) 65 % (50.0-70.0) 12/26/17 00:15 Band Neutrophils % 20 % (0-2) H* 12/26/17 00:15 Lymphocytes % (Manual) 9 % (22.0-35.0) L 12/26/17 00:15 Atypical Lymphs % 1 % (0.0-0.0) H 12/26/17 00:15 Monocytes % (Manual) 1 % (1.0-6.0) 12/26/17 00:15 Eosinophils % (Manual) 1 % (0.0-3.0) 12/26/17 00:15 Metamyelocytes % 2 % 12/26/17 00:15 Myelocytes % 1 % 12/26/17 00:15 Platelet Evaluation Low (NORMAL) 12/26/17 00:15 PT 11.0 SECONDS (9.4-12.5) 12/26/17 00:15 INR 0.97 (0.93-1.08) 12/26/17 00:15 APTT 24.7 Seconds (25.1-36.5) L 12/26/17 00:15 pO2 144 mm/Hg (30-55) H 12/26/17 03:15 VBG pH 7.33 (7.32-7.43) 12/26/17 03:15 VBG pCO2 35.0 (40-60) L 12/26/17 03:15 VBG HCO3 18.5 mmol/l (21-28) L 12/26/17 03:15 VBG Total CO2 19.6 mmol.L (22-28) L 12/26/17 03:15 VBG O2 Sat (Calc) 99.5 % (40-65) H 12/26/17 03:15 VBG Base Excess -6.6 mmol/L (0.0-2.0) L 12/26/17 03:15 VBG Potassium 3.4 mmol/L (3.6-5.2) L 12/26/17 03:15 Sodium 138.0 mmol/L (132-148) 12/26/17 03:15 Chloride 110.0 mmol/L (98-107) H 12/26/17 03:15 Glucose 231 mg/dl (65-105) H 12/26/17 03:15 Lactate 2.8 mmol/L (0.7-2.1) H 12/26/17 03:15 FiO2 21.0 % 12/26/17 03:15 Sodium 144 mmol/L (132-148) 12/29/17 06:30 Potassium 4.0 mmol/L (3.6-5.0) 12/29/17 06:30 Chloride 111 mmol/L (98-107) H 12/29/17 06:30 Carbon Dioxide 25 mmol/L (21-33) 12/29/17 06:30 Anion Gap 12 (10-20) 12/29/17 06:30 BUN 20 mg/dL (7-21) 12/29/17 06:30 Creatinine 0.6 mg/dl (0.7-1.2) L 12/29/17 06:30 Est GFR ( Amer) > 60 12/29/17 06:30 Est GFR (Non-Af Amer) > 60 12/29/17 06:30 POC Glucose (mg/dL) 218 mg/dL (65-110) H 12/29/17 16:37 Random Glucose 224 mg/dL (70-110) H 12/29/17 06:30 Calcium 8.5 mg/dL (8.4-10.5) 12/29/17 06:30 Phosphorus 3.6 mg/dL (2.5-4.5) 12/26/17 00:15 Magnesium 2.4 mg/dL (1.7-2.2) H 12/28/17 06:00 Total Bilirubin 0.8 mg/dL (0.2-1.3) 12/29/17 06:30 AST 32 U/L (14-36) 12/29/17 06:30 ALT 51 U/L (7-56) 12/29/17 06:30 Alkaline Phosphatase 161 U/L (38-126) H D 12/29/17 06:30 Total Protein 6.2 g/dL (5.8-8.3) 12/29/17 06:30 Albumin 3.2 g/dL (3.0-4.8) 12/29/17 06:30 Globulin 3.0 gm/dL 12/29/17 06:30 Albumin/Globulin Ratio 1.1 (1.1-1.8) 12/29/17 06:30 Procalcitonin 0.32 NG/ML (0.19-0.49) 12/26/17 19:34 Venous Blood Potassium 3.4 mmol/L (3.6-5.2) L 12/26/17 03:15 Urine Color Dark yellow (YELLOW) 12/26/17 04:10 Urine Appearance Turbid (CLEAR) 12/26/17 04:10 Urine pH 5.5 (4.7-8.0) 12/26/17 04:10 Ur Specific [place] 1.020 (1.005-1.035) 12/26/17 04:10 Urine Protein 30 mg/dL (<30 mg/dL) H 12/26/17 04:10 Urine Glucose (UA) Negative mg/dL (NEGATIVE) 12/26/17 04:10 Urine Ketones Negative mg/dL (NEGATIVE) 12/26/17 04:10 Urine Blood Large (NEGATIVE) H 12/26/17 04:10 Urine Nitrate Positive (NEGATIVE) H 12/26/17 04:10 Urine Bilirubin Negative (NEGATIVE) 12/26/17 04:10 Urine Urobilinogen 0.2 E.U./dL (<1 E.U./dL) 12/26/17 04:10 Ur Leukocyte Esterase Large Valentin/uL (NEGATIVE) H 12/26/17 04:10 Urine RBC 10 - 15 /hpf (0-2) 12/26/17 04:10 Urine WBC Tntc /hpf (0-6) 12/26/17 04:10 Ur Epithelial Cells 1 - 3 /hpf (0-5) 12/26/17 04:10 Urine Bacteria Mod (NEG) 12/26/17 04:10 - Hospital Course Hospital Course: Pt seen and examined. I have reviewed the note of the biomedical equipment specialist and agree with it. I have discussed the assessment and plan with the resident. I have reviewed the patient's labs and medications. PT has elevated BP. Will be placed back on her HTN meds. She will f/u with Dr Han. She is going to get home IV Abx and did not want to go to a facilty. Her niece is a nurse that will help her. She will also f/u with Dr Florence.
[2017-12-29 12:41] VITALS: BP 143/94; PULSE 93; RESP 21; TEMP 98.8
--- NOTE | 2017-12-29 13:51 | CP.PCM.PN ---
Subjective - Date & Time of Evaluation Date of Evaluation: 12/29/17 Time of Evaluation: 11:05 - Subjective Subjective: No fevers, feeling much better, no flank pain, no dysuria, no hematuria, no diarrhea. Objective - Vital Signs/Intake and Output Vital Signs (last 24 hours): Temp Pulse Resp BP Pulse Ox 97.9 F 103 H 20 140/97 H 96 12/29/17 06:00 12/29/17 06:00 12/29/17 06:00 12/29/17 06:00 12/29/17 06:00 Intake and Output: 12/29/17 12/29/17 06:59 18:59 Intake Total 2100 Output Total 1300 Balance 800 - Medications Medications: Current Medications Hydrochlorothiazide (Microzide) 12.5 mg PO DAILY ROGERS Meropenem (Merrem Iv 1 Gm Premix) 50 mls @ 100 mls/hr IVPB Q12 ROGERS PRN Reason: Protocol Stop: 01/04/18 10:01 Last Admin: 12/29/17 09:45 Dose: 100 mls/hr Insulin Human Regular (Humulin R Med) 0 units SC ACHS ROGERS PRN Reason: Protocol Last Admin: 12/28/17 22:00 Dose: Not Given Losartan Potassium (Cozaar) 50 mg PO DAILY ROGERS - Labs Labs: 12/29/17 06:30 12/29/17 06:30 PT 11.0 SECONDS (9.4-12.5) 12/26/17 00:15 INR 0.97 (0.93-1.08) 12/26/17 00:15 APTT 24.7 Seconds (25.1-36.5) L 12/26/17 00:15 - Constitutional Appears: Non-toxic, Chronically Ill - Head Exam Head Exam: NORMAL INSPECTION - ENT Exam ENT Exam: Mucous Membranes Moist - Respiratory Exam Respiratory Exam: Decreased Breath Sounds - Cardiovascular Exam Cardiovascular Exam: +S1, +S2 - GI/Abdominal Exam GI & Abdominal Exam: Soft. absent: Tenderness Assessment and Plan - Assessment and Plan (Free Text) Plan: Assessment severe sepsis due to UTI (probably upper tract) associated with nephrolithiasis S/P left ureteral stent placement POD #3, slowly improving DM HTN morbid obesity with BMI 40 cataracts dyslipidemia S/P hysterectomy Plan Continue Merrem (day 4) - would recommend at least another week of antibiotics; urine cx showing multiple species (probably contamination); blood cx are negative - should aim for 10-14 days of antibiotics will continue to monitor clinically follow up further recommendations of Urology
== END 2017-12-29 19:24 | disposition home or self-care (01) | DRG 872 ==
LOC: ED 23:54 → ERH 12-26 03:04 → 2RNO 12-26 03:52 → CCU 12-26 18:52 → 2RSO 12-27 15:18
PROVIDERS: ADMIT Internal Medicine Nephrology; ATTEND Internal Medicine Nephrology
PROC: BT1F1ZZ Fluoroscopy of Left Kidney, Ureter and Bladder using Low Osmolar Contrast (ICD-10-PCS; 2017-12-26)
PROC: 0T778DZ Dilation of Left Ureter with Intraluminal Device, Via Natural or Artificial Opening Endoscopic (ICD-10-PCS; principal; 2017-12-26 10:05)
DX: A41.9 Sepsis, unspecified organism (principal); N13.2 Hydronephrosis with renal and ureteral calculous obstruction; N39.0 Urinary tract infection, site not specified; Z68.41 Body mass index [BMI] 40.0-44.9, adult; R65.20 Severe sepsis without septic shock; I10 Essential (primary) hypertension; E78.00 Pure hypercholesterolemia, unspecified; E11.36 Type 2 diabetes mellitus with diabetic cataract; E78.5 Hyperlipidemia, unspecified; E66.01 Morbid (severe) obesity due to excess calories; I35.0 Nonrheumatic aortic (valve) stenosis; Z79.84 Long term (current) use of oral hypoglycemic drugs

== ENCOUNTER 2018-03-02 15:53 | Inpatient (IN) | payer OTHER ==
[2018-03-02 16:10] VITALS: BMI 42.1
[2018-03-02] MEDS ORDERED: Non Formulary Medication (Meropenem [Merrem Iv] 1 GM) IVPB SCH (16:15)
[2018-03-02] MEDS: Insulin Reg-LOW-Coverage SC SCH ×2 (17:46→22:06)
[2018-03-02] MEDS: Meropenem IV 1 gm in NS 50 ML IVPB SCH (22:07)
[2018-03-03] MEDS: Meropenem IV 1 gm in NS 50 ML IVPB SCH ×3 (06:02→22:07)
[2018-03-03] MEDS: Insulin Reg-LOW-Coverage SC SCH ×4 (07:55→21:45)
[2018-03-03] MEDS: POLYETHYLENE GLYCOL 3350 17 GM/Dose PACKET PO SCH ×2 (09:13→17:44)
[2018-03-03] MEDS ORDERED: Micafungin 100 MG in Sodium Chloride 0.9% 100 ML IV SCH (19:30)
--- NOTE | 2018-03-03 19:55 | CON ---
Copied To: Abelino Hoang MD Attending MD: Abelino Hoang MD DATE: 03/03/2018 LOCATION: The patient seen earlier today in [facility]. CHIEF COMPLAINT: Weakness times several days. HISTORY OF PRESENT ILLNESS: This is an 83-year-old female with past medical history significant for diabetes, hypertension, obesity with a BMI of 37, cataract, dyslipidemia, history of hysterectomy, history of left ureteral stent, history of nephrolithiasis, who came to [place] after same day surgery, had cystoscopy and ureteral calculus. After procedure, the patient had fevers and chills. It was worked up, had cultures antibiotics, and Infectious Disease consultation requested the transitional care to continue the antibiotics. At this point, the patient feels much improved and no fevers and no chills, no nausea and no vomiting. She states she is much improved. REVIEW OF SYSTEMS: A 12-point review of systems performed. No abdominal pain, diarrhea, or constipation. No headache or blurred vision. No rash or new joint pain. No new back pain. No cough and no hemoptysis. PAST MEDICAL HISTORY: Significant for diabetes, hypertension, obesity, cataract, dyslipidemia, and nephrolithiasis. PAST SURGICAL HISTORY: Significant for hysterectomy and left ureteral stent. ALLERGIES: THE PATIENT HAS NO KNOWN ALLERGIES. The patient does have obesity with BMI of 37. MEDICATIONS AT HOME: Reviewed include losartan, insulin, Amaryl, and Lipitor. PHYSICAL EXAMINATION: GENERAL: The patient is in bed. VITAL SIGNS: Temperature of 98, T-max was up to 100.4, respiratory rate of 18, heart rate of 98, and blood pressure is 130/80. HEENT: Unremarkable. NECK: Supple. LUNGS: Decreased breath sounds. HEART: Normal S1, S2. ABDOMEN: Soft, nontender. No organomegaly, no rebound, no guarding, no masses. LABORATORY EXAMINATION: Reveals the patient's white count initially was 7.5 and up to 13,300. Chemistries are noted. BUN is 17, creatinine is LFTs are elevated. Microbiology reveals the initial urine culture had multiple organisms. Repeat urine culture has yeast. Initial blood cultures are negative. ASSESSMENT AND PLAN: An 83-year-old female with sepsis with urine as the source, urethral infection with left-sided reveal ureteral calculus in a patient with Escherichia coli urinary tract infection, which grew at Dr. Florence's office on 02/26/2018, diabetic, hypertensive, morbid obesity. Today is day #6 of meropenem with complete 10 to 14 days and unable to use quinolones because of her prolonged QTc. Currently, on meropenem day #6 with complete 10 to 14 days. Abelino Hoang MD
[2018-03-03 21:18] LABS: URINE APPEARANCE CLOUDY (CLEAR); URINE BILIRUBIN NEGATIVE (NEGATIVE); URINE BLOOD SMALL (NEGATIVE); URINE COLOR YELLOW (YELLOW); URINE GLUCOSE (UA) 250 mg/dL (NEGATIVE); URINE LEUKOCYTE ESTERASE MODERATE Leu/uL (NEGATIVE); URINE PROTEIN 100 mg/dL (<30 mg/dL)
[2018-03-03 21:28] LABS: URINE EPITHELIAL CELLS 0 - 2 /hpf (0-5); URINE WBC 25 - 30 /hpf (0-6)
[2018-03-03 21:29] LABS: URINE BACTERIA SMALL (NEG)
[2018-03-04] MEDS: Meropenem IV 1 gm in NS 50 ML IVPB SCH ×3 (06:13→21:58)
[2018-03-04] MEDS: Insulin Reg-LOW-Coverage SC SCH ×4 (06:58→21:59)
[2018-03-04] MEDS: POLYETHYLENE GLYCOL 3350 17 GM/Dose PACKET PO SCH ×2 (09:14→17:22)
--- NOTE | 2018-03-04 14:49 | PN ---
DATE: 03/04/2018 SUBJECTIVE: The patient is in bed, in no acute distress, was seen earlier today in room 304. She has concerns about going home. She is very adamant about going home on time. She does not want to be in the Transitional Care Unit. She wants to be on home. I have explained to her about her blood culture results being positive for yeast and she will need antifungal therapy and may be able to go to p.o. if possible. PHYSICAL EXAMINATION: VITAL SIGNS: On exam, temperature is 97, blood pressure is 118/60, respiratory rate of 18, oxygen saturation is 92% on room air. HEENT: Examination of HEENT is unremarkable. NECK: Supple. LUNGS: Have decreased breath sounds. HEART: Normal S1, S2. ABDOMEN: Soft, nontender. LABORATORY DATA: Laboratory examination reveals the white count is noted to be at 9.7 on 02/28/2018. The sed rate from yesterday is 107. The chemistries reveals the patient's C-reactive protein is 87. Urinalysis reveals yeast in the urine and moderate leukocyte esterase and microbiology reveals that yeast in the urine is growing and yeast in the blood is growing. reveals the patient to be on meropenem and was started on micafungin. ASSESSMENT AND PLAN: An 83-year-old female, seen earlier in room 304 with history of diabetes, hypertension, obesity, body mass index of 37, cataract, dyslipidemia, history of hysterectomy, history of left ureteral stent and nephrolithiasis, who had cystoscopy and ureteral calculus, had fevers and chills and now has #1, the patient had sepsis with fungemia and had Escherichia coli in the urine culture at Dr. Florence's office. Also, the patient has yeast in the blood and yeast in the urine, currently now on micafungin day #2 and meropenem day #7. We will repeat the blood cultures to see if the fungemia is clear. We will order an echo to rule out endocarditis and waiting for identification and sensitivity of the yeast in the blood. Should have an ophthalmology examination because of the fungemia and we will make further recommendations. If there is still a stent in the genitourinary tract, it should be removed. Abelino Hoang MD [facility] # [id number]
--- NOTE | 2018-03-04 21:45 | HP ---
ADMISSION NOTE HISTORY OF PRESENT ILLNESS: Ms. Crowley is an 83-year-old female with past medical history of diabetes mellitus, hypertension, obesity, complaining of weakness. Urine culture is positive for E. Coli and yeast. She was transferred to transitional care unit for gait improvement and IV antibiotics. REVIEW OF SYSTEMS: As per HPI. Rest of 12-point review of systems reviewed negative. PAST MEDICAL HISTORY: Diabetes mellitus type 2, hypertension, obesity, cataract, dyslipidemia, nephrolithiasis. PAST SURGICAL HISTORY: Hysterectomy and ureteral stent. ALLERGIES: NO KNOWN DRUG ALLERGIES. HOME MEDICATIONS: Losartan, insulin, Amaryl, and Lipitor. PHYSICAL EXAMINATION: GENERAL: Comfortable in bed, in no acute distress. VITAL SIGNS: Temperature 98.7, T-max was 100; respiratory rate 18 per minute; blood pressure 130/80. HEENT: Unremarkable. NECK: No lymphadenopathy. CHEST: Air entry present and equal, bilateral. No added sounds. CARDIOVASCULAR: S1, S2 normal. No murmur. No gallop. ABDOMEN: Soft, nontender. No hepatosplenomegaly. LABORATORY DATA: White count 7.5, BUN 17, creatinine 0.5. Blood culture, pending. Urine culture, yeast. ASSESSMENT AND PLAN: She is currently on meropenem. She will receive 10 to 14 days of meropenem. History of Escherichia coli urinary tract infection in the past. Dr. Hoang is following. She had left ureteral calculus. Bedside physical therapy. We will monitor the blood count, CBC, BMP. Jyoti Calderón MD
[2018-03-04] MEDS: Micafungin 100 MG in Sodium Chloride 0.9% 100 ML IV SCH (21:58)
--- NOTE | 2018-03-04 22:28 | PN ---
DATE: 03/04/2018 FOLLOWUP NOTE SUBJECTIVE: She is comfortable in bed, in no acute distress. Blood culture from 02/26 grew yeast. She is on caspofungin day #2. She is also on meropenem day #7. She is talking about going home tomorrow. I explained to her that she has yeast in the blood. She kept on arguing that we did not find it before, why we are finding new things now. She said she will go home tomorrow and see Dr. Han and she can manage everything from the office. I tried to explain to her the gravity of the situation, but she was adamant and she does not want to listen. REVIEW OF SYSTEMS: As per HPI. Rest of 12-point review of systems is reviewed and negative. PHYSICAL EXAMINATION: GENERAL: Comfortable in bed, in no acute distress. VITAL SIGNS: Temperature 97.8, heart rate 80 per minute, blood pressure 118/60, respiratory rate 18 per minute, oxygen saturation 92% on room air. HEENT: Pallor positive. NECK: No lymphadenopathy. CHEST: Air entry present and equal bilateral. No added sounds. CARDIOVASCULAR: S1 and S2 normal. No murmur. No gallop. ABDOMEN: Soft, nontender. No hepatosplenomegaly. EXTREMITIES: No edema. LABORATORY DATA: Yeast positive blood culture 02/26. Urine culture, E. coli. ASSESSMENT: 1. Fungemia. 2. Urinary tract infection. 3. Deconditioning. PLAN: She was started on micafungin by Dr. Hoang and currently on meropenem day #7. She will need workup for fungemia. An echocardiogram to rule out endocarditis. May be removal of ureteric stent. Studies are not ordered because she is adamant to go home tomorrow. I told her to discuss with Dr. Ritchie in the morning about her discharge planning. Discussed with Dr. Hoang at length. Continue physical therapy. Jyoti Calderón MD
[2018-03-05] MEDS: Meropenem IV 1 gm in NS 50 ML IVPB SCH ×3 (05:11→21:11)
[2018-03-05] MEDS: Insulin Reg-LOW-Coverage SC SCH ×4 (07:03→22:00)
[2018-03-05] MEDS: POLYETHYLENE GLYCOL 3350 17 GM/Dose PACKET PO SCH ×2 (09:52→17:26)
--- NOTE | 2018-03-05 11:44 | PN ---
DATE: 03/05/2018 SUBJECTIVE: The patient has no complaints of any chest pain. No shortness of breath. No headaches. No dizziness. PHYSICAL EXAMINATION: VITAL SIGNS: Temperature is 98.5, pulse 90, blood pressure 138/65, respirations 14. GENERAL: The patient is lying in bed, flat, comfortable. HEENT: No oral lesion. Anicteric sclerae. Moist mucosa. NECK: No JVD, adenopathy, or thyromegaly. CARDIOVASCULAR: S1 and S2, regular. No murmurs, rubs, or gallops. LUNGS: Clear to auscultation bilaterally. No wheeze, rales, or rhonchi. ABDOMEN: Bowel sounds are positive, soft, nontender and nondistended. EXTREMITIES: No cyanosis, clubbing or edema. ASSESSMENT: 1. Fungemia. 2. Dyslipidemia. 3. Diabetes type 2. 4. Hypertension. 5. Constipation. 6. Left ureteral stent. 7. Nephrolithiasis. PLAN: The patient is currently on the transitional care unit, getting IV antibiotics and micafungin. She is day #3 for micafungin and day #8 for meropenem. The patient had a left ureteral stent and nephrolithiasis. The patient is going to have repeat blood cultures done and echo have been ordered to rule out endocarditis. We will get Ophthalmology to evaluate the patient for endophthalmitis. We will get Dr. Florence to reevaluate the patient for removal of the stent. Juan Miguel Ritchie MD
[2018-03-05] MEDS ORDERED: Meropenem IV 1 gm in NS 50 ML IVPB SCH (11:46)
--- NOTE | 2018-03-05 17:08 | CP.PCM.PN ---
Subjective - Date & Time of Evaluation Date of Evaluation: 03/05/18 Time of Evaluation: 12:50 - Subjective Subjective: Comfortable, no fevers, not in distress. Objective - Vital Signs/Intake and Output Vital Signs (last 24 hours): Temp Pulse Resp BP Pulse Ox 98.5 F 88 14 154/82 H 95 03/04/18 16:00 03/05/18 09:52 03/04/18 16:00 03/05/18 09:52 03/04/18 16:00 - Medications Medications: Current Medications Acetaminophen (Tylenol 325mg Tab) 650 mg PO Q4H PRN PRN Reason: Fever >100.4 F Atorvastatin Calcium (Lipitor) 40 mg PO DIN [facility] Last Admin: 03/04/18 17:21 Dose: 40 mg Clonazepam (Klonopin) 0.25 mg PO BID PRN; Protocol PRN Reason: Anxiety Glimepiride (Amaryl) 4 mg PO BID [facility] Last Admin: 03/05/18 09:52 Dose: 4 mg Micafungin Sodium 100 mg/ (Sodium Chloride) 100 mls @ 100 mls/hr IV 2200 [facility] PRN Reason: Protocol Stop: 03/18/18 22:01 Last Admin: 03/04/18 21:58 Dose: 100 mls/hr Meropenem (Merrem Iv 1 Gm Premix) 50 mls @ 100 mls/hr IVPB Q12 [facility] Insulin Human Regular (Humulin R Low) 0 units SC ACHS [facility] PRN Reason: Protocol Last Admin: 03/05/18 11:32 Dose: 2 units Losartan Potassium (Cozaar) 50 mg PO DAILY [facility] Last Admin: 03/05/18 09:52 Dose: 50 mg Ondansetron HCl (Zofran Inj) 4 mg IVP Q4H PRN PRN Reason: Nausea/Vomiting Polyethylene Glycol (Miralax) 17 gm PO BID [facility] Last Admin: 03/05/18 09:52 Dose: 17 gm - Constitutional Appears: Chronically Ill - Head Exam Head Exam: NORMAL INSPECTION - Respiratory Exam Respiratory Exam: Decreased Breath Sounds - Cardiovascular Exam Cardiovascular Exam: +S1, +S2 - GI/Abdominal Exam GI & Abdominal Exam: Soft. absent: Tenderness Assessment and Plan - Assessment and Plan (Free Text) Plan: Assessment sepsis from UTI /ureteral infection (with gross pus noted during cystoscopy 2017) associated with left sided ureteral calculus in this patient with history of UTI - E. coli grew at Dr. Florence's office prior to the procedure done 02/26/2018 Candidemia, source may also be the urine history of severe sepsis due to UTI (probably upper tract) associated with nephrolithiasis S/P left ureteral stent placement 3 months ago (November 2017) DM HTN morbid obesity with BMI 40 cataracts dyslipidemia S/P hysterectomy Plan continue Merrem day 8 for 10-14 days and Mycamine day 3 (reported to have grown on 2017 in the evening but we were only alerted about it the next day) - follow up final identification of the yeast in the blood - will recommend Ophtho evaluation and follow up 2D echo will continue to monitor clinically
[2018-03-05] MEDS: Micafungin 100 MG in Sodium Chloride 0.9% 100 ML IV SCH (21:11)
[2018-03-06] MEDS: Insulin Reg-LOW-Coverage SC SCH ×3 (06:54→21:57)
--- NOTE | 2018-03-06 08:57 | RAD ---
Date of service: 03/05/2018 HISTORY: kidney stones COMPARISON: 01/13/2018 FINDINGS: BOWEL: Normal. No obstruction. No free air. BONES: Normal. OTHER FINDINGS: None. IMPRESSION: No urinary calculus identified.
[2018-03-06] MEDS: Meropenem IV 1 gm in NS 50 ML IVPB SCH ×2 (14:33→22:50)
[2018-03-06 16:53] VITALS: O2SAT 95
[2018-03-06] MEDS: POLYETHYLENE GLYCOL 3350 17 GM/Dose PACKET PO SCH (17:22)
--- NOTE | 2018-03-06 21:46 | CP.PCM.PN ---
Subjective - Date & Time of Evaluation Date of Evaluation: 03/06/18 Time of Evaluation: 10:50 - Subjective Subjective: Comfortable on a chair, no fevers, not in distress. Objective - Vital Signs/Intake and Output Vital Signs (last 24 hours): Temp Pulse Resp BP Pulse Ox 98.3 F 88 20 154/82 H 94 L 03/05/18 10:00 03/05/18 10:00 03/05/18 10:00 03/05/18 10:00 03/05/18 10:00 Intake and Output: 03/05/18 03/06/18 18:59 06:59 Intake Total 380 Balance 380 - Medications Medications: Current Medications Acetaminophen (Tylenol 325mg Tab) 650 mg PO Q4H PRN PRN Reason: Fever >100.4 F Atorvastatin Calcium (Lipitor) [address] [facility] Last Admin: 03/05/18 17:26 Dose: 40 mg Clonazepam (Klonopin) 0.25 mg PO BID PRN; Protocol PRN Reason: Anxiety Glimepiride (Amaryl) [address] [facility] Last Admin: 03/05/18 17:26 Dose: 4 mg Micafungin Sodium 100 mg/ (Sodium Chloride) 100 mls @ 100 mls/hr IV [address] [facility]; Protocol Stop: 03/18/18 22:01 Last Admin: 03/05/18 21:11 Dose: 100 mls/hr Meropenem (Merrem Iv 1 Gm Premix) 50 mls @ 100 mls/hr IVPB 0600,1400,2200 [facility]; Protocol Stop: 03/12/18 14:16 Last Admin: 03/05/18 21:11 Dose: 100 mls/hr Insulin Human Regular (Humulin R Low) [address] [facility]; Protocol Last Admin: 03/05/18 22:00 Dose: Not Given Losartan Potassium (Cozaar) [address] [facility] Last Admin: 03/05/18 09:52 Dose: 50 mg Ondansetron HCl (Zofran Inj) 4 mg IVP Q4H PRN PRN Reason: Nausea/Vomiting Polyethylene Glycol (Miralax) [address] [facility] Last Admin: 03/05/18 17:26 Dose: Not Given - Constitutional Appears: Non-toxic, No Acute Distress, Chronically Ill - Head Exam Head Exam: NORMAL INSPECTION - Neck Exam Neck Exam: absent: Meningismus - Respiratory Exam Respiratory Exam: Decreased Breath Sounds - Cardiovascular Exam Cardiovascular Exam: +S1, +S2 - GI/Abdominal Exam GI & Abdominal Exam: Soft. absent: Tenderness Assessment and Plan - Assessment and Plan (Free Text) Plan: Assessment sepsis from UTI /ureteral infection (with gross pus noted during cystoscopy 2017) associated with left sided ureteral calculus in this patient with history of UTI - E. coli grew at Dr. Florence's office prior to the procedure done 02/26/2018 Candidemia, source may also be the urine history of severe sepsis due to UTI (probably upper tract) associated with nephrolithiasis S/P left ureteral stent placement 3 months ago (November 2017) DM HTN morbid obesity with BMI 40 cataracts dyslipidemia S/P hysterectomy Plan continue Merrem day 9 for 10-14 days and Mycamine day 4 (reported to have grown on 2017 in the evening but we were only alerted about it the next day) - follow up final identification of the yeast in the blood - will recommend Ophtho evaluation; 2D echo did not show vegetations may need to remove stent in the ureter if present will continue to monitor clinically
[2018-03-06] MEDS: Micafungin 100 MG in Sodium Chloride 0.9% 100 ML IV SCH (21:58)
[2018-03-07] MEDS: Meropenem IV 1 gm in NS 50 ML IVPB SCH ×3 (06:24→21:45)
[2018-03-07] MEDS: Insulin Reg-LOW-Coverage SC SCH ×4 (06:44→21:51)
[2018-03-07] MEDS: POLYETHYLENE GLYCOL 3350 17 GM/Dose PACKET PO SCH ×2 (09:53→18:04)
--- NOTE | 2018-03-07 10:34 | PN ---
DATE: 03/07/2018 SUBJECTIVE: The patient has no complaints of any chest pain, no shortness of breath, no headaches or dizziness. PHYSICAL EXAMINATION: VITAL SIGNS: Temperature is 98.3, pulse of 91, blood pressure is 136/91, respirations 18, O2 saturation 95%. GENERAL: The patient is lying in bed, flat, comfortable. HEENT: No oral lesion. Anicteric sclerae. Moist mucosa. NECK: No JVD, adenopathy, or thyromegaly. CARDIOVASCULAR: S1 and S2, regular. No murmurs, rubs, or gallops. LUNGS: Clear to auscultation bilaterally. No wheeze, rales, or rhonchi. ABDOMEN: Bowel sounds are positive, soft, nontender and nondistended. EXTREMITIES: No cyanosis, clubbing or edema. IMAGING: Abdominal x-ray shows no urinary calculi that was identified. She has an echo done shows left ventricle is normal size and normal thickness. The aortic valve is moderately to severely calcified. There is mild to moderate valvular aortic stenosis. No vegetations seen. ASSESSMENT: 1. Fungemia. 2. Dyslipidemia. 3. Diabetes type 2. 4. Hypertension. 5. Constipation. 6. Left ureteral stent. 7. Nephrolithiasis. 8. Aortic stenosis, moderate. 9. Pulmonary hypertension, moderate. PLAN: The patient is currently on meropenem for antibiotics. She is on day #10 for her antibiotics. She is also talking vitamin and this is day #5 of her antifungal. The patient's yeast identification is pending. The 2D echo does not show any vegetations. The patient is on Amaryl for her diabetes. She is on Klonopin. She is going to continue with MiraLax for constipation. I did speak to the patient's family member, Roxi who is a nurse, to give her an update. The patient is on a heart-healthy diet. She is getting physical therapy, we will continue. Juan Miguel Ritchie MD
--- NOTE | 2018-03-07 16:31 | PN ---
DATE: 03/07/2018 SUBJECTIVE: The patient is in bed, in no acute distress, nontoxic. PHYSICAL EXAMINATION: VITAL SIGNS: Temperature is 98, blood pressure is 136/90, respiratory rate of 18, heart rate of 91. HEENT: Examination of HEENT is unremarkable. NECK: Supple. LUNGS: Have decreased breath sounds. HEART: Normal S1 and S2. ABDOMEN: Soft. LABORATORY DATA: Laboratory examination noted. Urinalysis is noted. Microbiology reveals the yeast in urine. The repeat blood cultures are negative. The initial one had yeast in the blood. ASSESSMENT AND PLAN: This is an 83-year-old female with sepsis, ureteral infection and the patient had gross pus noted during cystoscopy on 02/26/2018 associated with left-sided ureteral calculus in a patient with history of urinary tract infection and Escherichia coli at Dr. Florence's office and now has fungemia, Kathya in the blood with the urine as the source with severe sepsis secondary to urinary tract infection with nephrolithiasis, status post left ureteral stent placement 3 months ago, on day #10 of meropenem and day #5 of Mycamine. Repeat blood cultures are negative. The patient's blood culture had grown Kathya glabrata. Certain percentage of Kathya glabrata may be resistant to fluconazole, therefore it is recommended to continue with Mycamine unless we have sensitivity available for that. We will follow with you. Abelino Hoang MD
[2018-03-07] MEDS: Micafungin 100 MG in Sodium Chloride 0.9% 100 ML IV SCH (21:45)
[2018-03-08] MEDS: Meropenem IV 1 gm in NS 50 ML IVPB SCH ×4 (05:31→21:31)
[2018-03-08] MEDS: Insulin Reg-LOW-Coverage SC SCH ×4 (06:46→22:50)
[2018-03-08 07:38] LABS: HEMOGLOBIN 10.5 g/dL (12.0-16.0); MEAN CELL VOLUME 87.7 fl (80.0-105.0); MEAN CORPUSCULAR HEMOGLOBIN 27.5 pg (25.0-35.0); MEAN CORPUSCULAR HGB CONC 31.3 g/dl (31.0-37.0); MEAN PLATELET VOLUME 9.9 fl (7.0-11.0); RBC 3.82 10^6/uL (3.5-6.1); RED CELL DISTRIBUTION WIDTH 14.9 % (11.5-14.5); WHITE BLOOD COUNT 7.4 10^3/ul (4.5-11.0)
[2018-03-08 08:02] LABS: ALB/GLOB RATIO 0.8 (1.1-1.8); ALBUMIN 3.4 g/dL (3.0-4.8); ALT/SGPT 52 U/L (7-56); AST/SGOT 37 U/L (14-36); BLOOD UREA NITROGEN 17 mg/dL (7-21); CALCIUM 9.3 mg/dL (8.4-10.5); GFR NON-AFRICAN AMERICAN > 60
[2018-03-08] MEDS: POLYETHYLENE GLYCOL 3350 17 GM/Dose PACKET PO SCH ×2 (09:25→17:41)
[2018-03-08 16:28] VITALS: RESP 18; TEMP 98.2
[2018-03-08] MEDS: Micafungin 100 MG in Sodium Chloride 0.9% 100 ML IV SCH (21:32)
--- NOTE | 2018-03-08 21:55 | PN ---
DATE: 03/08/2018 SUBJECTIVE: The patient is seen early this morning in room 304. No fevers and no chills. She is doing well. She is anxious about being discharged. PHYSICAL EXAMINATION: VITAL SIGNS: Temperature is 98, blood pressure is 120/80, respiratory rate of 18. HEENT: Examination of HEENT is unremarkable. NECK: Supple. LUNGS: Have decreased breath sounds. HEART: Normal S1 and S2. ABDOMEN: Soft. LABORATORY DATA: Laboratory examination reveals the patient's white count of 7.4, hemoglobin of 10, platelet of 107. Chemistries are noted and alk phos is elevated. Urinalysis is noted with 25-30 wbc's. Microbiology has yeast in the urine. The patient did have Kathya glabrata in the blood. No sensitivity is available. ASSESSMENT AND PLAN: An 83-year-old female, who was seen in Transitional Care with sepsis, ureteral infection and had pus noted wherein cystoscopy, associated with left-sided ureteral calculus in a patient with a history of urinary tract infection, Escherichia coli in Dr. Florence's office. Now, has Kathya glabrata fungemia. One blood culture is positive with severe sepsis secondary to yeast in the urine. Unfortunately, no sensitivity on Kathya glabrata because of the resistance rate to fluconazole with adhere to Mycamine, today is day #6 of Mycamine, would complete 14 days. Day #11 of meropenem. Unless we have sensitivity for the Kathya glabrata, we must assume that it may be resistant to fluconazole and we have to continue with the Mycamine. Case discussed with Dr. Ritchie at length. Abelino Hoang MD
[2018-03-09] MEDS ORDERED: Phenylephrine 10% Opht (5 ml) OU SCH (05:00)
[2018-03-09] MEDS ORDERED: Tropicamide 1% Opht SOLUTION OU SCH (05:00)
[2018-03-09] MEDS: Tropicamide 1% Opht SOLUTION OU SCH ×4 (05:02→05:09)
[2018-03-09] MEDS: Phenylephrine 10% Opht (5 ml) OU SCH ×3 (05:09→05:12)
[2018-03-09] MEDS: Meropenem IV 1 gm in NS 50 ML IVPB SCH (05:14)
[2018-03-09] MEDS: Insulin Reg-LOW-Coverage SC SCH ×2 (06:36→12:19)
[2018-03-09] MEDS: POLYETHYLENE GLYCOL 3350 17 GM/Dose PACKET PO SCH (10:15)
[2018-03-09 10:17] VITALS: BP 133/86; PULSE 93
--- NOTE | 2018-03-09 11:46 | PN ---
DATE: 03/09/2018 SUBJECTIVE: The patient has no complaints of any headaches or dizziness. She was treated with IV meropenem for UTI. She has yeast in her blood; so, has been placed on micafungin. She is going to be discharged to continue treatment as an outpatient for 3 more weeks. She was seen by Ophthalmology and no endophthalmitis is seen. She had an echo, which was negative. The patient is excited about going home today. PHYSICAL EXAMINATION: VITAL SIGNS: Temperature is 98.2, pulse of 91, blood pressure is 120/82, respirations 18. GENERAL: The patient is lying in bed, flat, comfortable. HEENT: No oral lesion. Anicteric sclerae. Moist mucosa. NECK: No JVD, adenopathy, or thyromegaly. CARDIOVASCULAR: S1 and S2, regular. No murmurs, rubs, or gallops. LUNGS: Clear to auscultation bilaterally. No wheeze, rales, or rhonchi. ABDOMEN: Bowel sounds are positive, soft, nontender and nondistended. EXTREMITIES: No cyanosis, clubbing or edema. ASSESSMENT: 1. Fungemia. 2. Diabetes type 2. 3. Dyslipidemia. 4. Hypertension. 5. Constipation. 6. Nephrolithiasis. 7. Aortic stenosis, moderate. 8. Pulmonary hypertension, moderate. PLAN: The patient is currently on insulin. We are going to continue her on Lipitor for dyslipidemia. She is on micafungin, this will be continued. I did speak to Dr. Hoang regarding the case. The patient is on a heart-healthy diet. She is going to be on Tylenol. Juan Miguel Ritchie MD
--- NOTE | 2018-03-09 14:08 | CON ---
DATE: 03/09/2018 HISTORY OF PRESENT ILLNESS: Mrs. Nunez is an 83-year-old white female, who I was asked to see in consultation for fungemia. On visual acuity, her visual acuity is 20/80 in each eye. PAST MEDICAL HISTORY: Cataract surgery in both eyes. 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 Posterior capsules intact. Dilated fundus. Macular degeneration in both eyes. No evidence of any fungus. ASSESSMENT: My assessment is that Mrs. 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 Ahsan Womack MD
--- NOTE | 2018-03-09 16:09 | CP.PCM.PN ---
Subjective - Date & Time of Evaluation Date of Evaluation: 03/09/18 Time of Evaluation: 10:40 - Subjective Subjective: Feeling ok, no nausea, no fevers, not in distress, no abdominal pain. Objective - Vital Signs/Intake and Output Vital Signs (last 24 hours): Temp Pulse Resp BP Pulse Ox 98.2 F 91 H 18 128/82 95 03/08/18 16:00 03/08/18 16:00 03/08/18 16:00 03/08/18 16:00 03/08/18 16:00 Intake and Output: 03/08/18 03/09/18 18:59 06:59 Intake Total 360 280 Balance 360 280 - Medications Medications: Current Medications Acetaminophen (Tylenol 325mg Tab) 650 mg PO Q4H PRN PRN Reason: Fever >100.4 F Atorvastatin Calcium (Lipitor) 40 mg PO DIN [facility] Last Admin: 03/08/18 17:41 Dose: 40 mg Clonazepam (Klonopin) 0.25 mg PO BID PRN; Protocol PRN Reason: Anxiety Glimepiride (Amaryl) 4 mg PO BID [facility] Last Admin: 03/08/18 17:40 Dose: 4 mg Micafungin Sodium 100 mg/ (Sodium Chloride) 100 mls @ 100 mls/hr IV 2200 [facility]; Protocol Stop: 03/18/18 22:01 Last Admin: 03/08/18 21:32 Dose: 100 mls/hr Meropenem (Merrem Iv 1 Gm Premix) 50 mls @ 100 mls/hr IVPB 0600,1400,2200 [facility]; Protocol Stop: 03/12/18 14:16 Last Admin: 03/08/18 21:31 Dose: 100 mls/hr Insulin Human Regular (Humulin R Low) 0 units SC ACHS [facility]; Protocol Last Admin: 03/08/18 22:50 Dose: Not Given Losartan Potassium (Cozaar) 50 mg PO DAILY [facility] Last Admin: 03/08/18 09:24 Dose: 50 mg Ondansetron HCl (Zofran Inj) 4 mg IVP Q4H PRN PRN Reason: Nausea/Vomiting Phenylephrine HCl (Phenylephrine Opht 10% Soln) 0 ml OU Q1M [facility] Stop: 03/09/18 05:03 Polyethylene Glycol (Miralax) 17 gm PO BID [facility] Last Admin: 03/08/18 17:41 Dose: Not Given Tropicamide (Mydriacyl 1% Opht Soln) 1 drop OU Q1M [facility] Stop: 03/09/18 05:03 - Labs Labs: 03/08/18 07:00 03/08/18 07:00 - Constitutional Appears: No Acute Distress, Chronically Ill - Head Exam Head Exam: NORMAL INSPECTION - Respiratory Exam Respiratory Exam: Decreased Breath Sounds - Cardiovascular Exam Cardiovascular Exam: +S1, +S2 - GI/Abdominal Exam GI & Abdominal Exam: Soft. absent: Tenderness - Extremities Exam Additional comments: left arm PICC line site clean Assessment and Plan - Assessment and Plan (Free Text) Plan: Assessment sepsis from UTI /ureteral infection (with gross pus noted during cystoscopy 2017) associated with left sided ureteral calculus in this patient with history of UTI - E. coli grew at Dr. Florence's office prior to the procedure done 02/26/2018 Kathya glabrata fungemia, source may also be the urine in this patient with ureteral stent, unable to rule out endophthalmitis history of severe sepsis due to UTI (probably upper tract) associated with nephrolithiasis S/P left ureteral stent placement 3 months ago (November 2017) DM HTN morbid obesity with BMI 40 cataracts dyslipidemia S/P hysterectomy Plan completed course of Merrem and on Mycamine day 7 - will need 3 more weeks since we are not able to rule out endophthalmitis (reported to have grown on 2017 in the evening but we were only alerted about it the next day) - 2D echo did not show vegetations should follow up with Urology to determined further course of action regarding ureters
== END 2018-03-09 13:12 | disposition home or self-care (01) | DRG 868 ==
LOC: TRCU 15:53
PROVIDERS: ADMIT Internal Medicine Nephrology; ATTEND Internal Medicine Nephrology
PROC: 3E033GC Introduction of Other Therapeutic Substance into Peripheral Vein, Percutaneous Approach (ICD-10-PCS; 2018-03-03)
PROC: F07Z9ZZ Gait Training/Functional Ambulation Treatment (ICD-10-PCS; principal; 2018-03-04)
PROC: F07Z5ZZ Bed Mobility Treatment (ICD-10-PCS; 2018-03-04)
PROC: F08Z4ZZ Home Management Treatment (ICD-10-PCS; 2018-03-04)
PROC: F07 Physical Rehabilitation and Diagnostic Audiology, Rehabilitation, Motor Treatment (ICD-10-PCS; 2018-03-06)
DX: B49 Unspecified mycosis (principal); Z68.41 Body mass index [BMI] 40.0-44.9, adult; N20.2 Calculus of kidney with calculus of ureter; N39.0 Urinary tract infection, site not specified; E78.5 Hyperlipidemia, unspecified; E11.36 Type 2 diabetes mellitus with diabetic cataract; I10 Essential (primary) hypertension; I27.20 Pulmonary hypertension, unspecified; I35.0 Nonrheumatic aortic (valve) stenosis; K59.00 Constipation, unspecified; E66.01 Morbid (severe) obesity due to excess calories; Z79.4 Long term (current) use of insulin; Z79.899 Other long term (current) drug therapy

== ENCOUNTER 2018-04-01 18:10 | Inpatient (IN) | payer MEDICARE, OTHER ==
[2018-04-01 18:10] VITALS: BMI 42.1
[2018-04-01 19:45] LABS: VENOUS BLOOD GAS BASE EXCESS 1.7 mmol/L (0.0-2.0); VENOUS BLOOD GAS PO2 39 mm/Hg (30-55); VENOUS BLOOD PH 7.39 (7.32-7.43)
[2018-04-01 19:54] LABS: BASO # 0.02 K/mm3 (0.0-2.0); BASO % 0.2 % (0.0-3.0); EOS # 0.1 (0.0-0.7); EOS % 1.1 % (1.5-5.0); GRAN # 10.05 (1.4-6.5); GRAN % 83.4 % (50.0-68.0); INR 0.99; LYMPH # 0.7 (1.2-3.4); LYMPH % 6.2 % (22.0-35.0); MEAN CELL VOLUME 88.8 fl (80.0-105.0); MEAN CORPUSCULAR HEMOGLOBIN 28.6 pg (25.0-35.0); MEAN CORPUSCULAR HGB CONC 32.2 g/dl (31.0-37.0); MEAN PLATELET VOLUME 10.3 fl (7.0-11.0); MONO # 1.1 (0.1-0.6); MONO % 9.1 % (1.0-6.0); PROTHROMBIN TIME 11.3 SECONDS (9.4-12.5); RBC 4.2 10^6/uL (3.5-6.1); RED CELL DISTRIBUTION WIDTH 16.1 % (11.5-14.5)
--- NOTE | 2018-04-01 19:58 | ED PDOC ---
Arrival/HPI - General Chief Complaint: Fever Time Seen by Provider: 04/01/18 18:29 Historian: Patient - History of Present Illness Narrative History of Present Illness (Text): 04/01/18 19:38 83yr old female presents today sent in by her doctor for admission. Patient states that today prior to arrival she developed fever and Chills. Patient states she is on a medication for fungal infection. Patient states she has a PICC line in the left arm that she gives herself the antibiotics. Patient states she has been on the medication for the past 4 weeks. Patient states she was feeling fine until today when she noticed she was urinating more frequently and then suddenly developed shaking chills and took her temperature and found the temperature of 100.6. Patient denies chest pain or shortness of breath. She denies dizziness or weakness. She denies abdominal pain. No nausea or vomiting. Patient states otherwise she's been feeling well. Patient states she had scheduled follow-up appointment with infectious disease doctor in a few days. Past Medical History - Provider Review Nursing Documentation Reviewed: Yes - Travel History Have you recently traveled outside [place] w/in the past 3 mons?: No - Infectious Disease Hx of Infectious Diseases: None - Tetanus Immunization Tetanus Immunization: Unknown - Cardiac Hx Pacemaker: No - Pulmonary Hx Respiratory Disorders: No - Neurological Hx Paralysis: No - HEENT Hx HEENT Disorder: Yes - Renal Hx Renal Disorder: No Hx Kidney Stones: Yes Other/Comment: Kidney stents - Endocrine/Metabolic Hx Diabetes Mellitus Type 2: Yes - Hematological/Oncological Hx Cancer: No - Integumentary Hx Dermatological Disorder: No - Musculoskeletal/Rheumatological Hx Musculoskeletal Disorders: No Hx Falls: No - Gastrointestinal Hx Gastrointestinal Disorders: Yes Other/Comment: Nephrolithiasis - Genitourinary/Gynecological Hx Genitourinary Disorders: No - Psychiatric Hx Anxiety: Yes Hx Substance Use: No - Surgical History Hx Mastectomy: No - Anesthesia Hx Anesthesia Reactions: No Hx Malignant Hyperthermia: No - Suicidal Assessment Feels Threatened In Home Enviroment: No Family/Social History - Physician Review Nursing Documentation Reviewed: Yes Family/Social History: Unknown Family HX Smoking Status: Never Smoked Hx Alcohol Use: No Hx Substance Use: No Hx Substance Use Treatment: No Allergies/Home Meds Allergies/Adverse Reactions: Allergies No Known Allergies Allergy (Verified 04/01/18 18:25) Home Medications: Home Meds Medication Instructions Recorded Confirmed Glimepiride [amaRYL] 4 mg PO BID 01/25/18 03/02/18 Losartan [Cozaar] 50 mg PO DAILY 01/25/18 03/02/18 Review of Systems - Review of Systems Constitutional: Fevers, Other (chills). absent: Fatigue Respiratory: absent: SOB, Cough Cardiovascular: absent: Chest Pain, Palpitations Gastrointestinal: absent: Abdominal Pain, Constipation, Diarrhea, Nausea, Vomiting Genitourinary Female: Dysuria, Frequency. absent: Hematuria, Vaginal Bleeding, Vaginal Discharge Musculoskeletal: absent: Arthralgias, Back Pain, Neck Pain Skin: absent: Rash, Pruritis Neurological: absent: Headache, Dizziness Psychiatric: absent: Anxiety, Depression, Suicidal Ideation Physical Exam Vital Signs Reviewed: Yes Vital Signs Temp Pulse Resp BP Pulse Ox 04/01/18 18:21 98.5 F 122 H 18 158/94 H 94 L Temperature: Afebrile Blood Pressure: Hypertensive Pulse: Tachycardic Respiratory Rate: Normal Appearance: Positive for: Well-Appearing, Non-Toxic, Comfortable Pain Distress: None Mental Status: Positive for: Alert and Oriented X 3, other (anxious) - Systems Exam Head: Present: Atraumatic Mouth: Present: Moist Mucous Membranes Neck: Present: Normal Range of Motion Respiratory/Chest: Present: Clear to Auscultation, Good Air Exchange. No: Respiratory Distress, Accessory Muscle Use Cardiovascular: Present: Regular Rate and Rhythm, Normal S1, S2. No: Murmurs Abdomen: No: Tenderness, Distention, Peritoneal Signs, Rebound, Guarding Back: Present: Normal Inspection Upper Extremity: Present: Normal ROM Lower Extremity: Present: Normal ROM Neurological: Present: GCS=15, Speech Normal Skin: Present: Warm, Dry, Normal Color. No: Rashes Psychiatric: Present: Alert, Oriented x 3 Medical Decision Making ED Course and Treatment: 04/01/18 21:17 83yr old female presents today with fever/chills at home prior to arrival. cbc; wbc; 12 CMP; bun; 29 cr; wnl lactate; 1.6 cxr; no infiltrate. Ua; + wbcs, + leukocytes Blood and urine cultures pending; pt started on vancomcyin and zosyn IV. pt reassessment; pt non toxic well appearing no distress. alert and oriented. ambulating with steady gait. denies any pain. case discussed with dr. avery; accepts admission; Impression; UTI, fever, leukocytosis admit to med/surg Reassessment Condition: Re-examined - RAD Interpretation Radiology Orders: 04/01/18 18:33 CHEST PORTABLE [RAD] Stat Disposition/Present on Arrival - Present on Arrival Any Indicators Present on Arrival: Yes History of DVT/PE: No History of Uncontrolled Diabetes: Yes Urinary Catheter: No History of Decub. Ulcer: No History Surgical Site Infection Following: None - Disposition Have Diagnosis and Disposition been Completed?: Yes Diagnosis: Fever, UTI (urinary tract infection), Leukocytosis Disposition: HOSPITALIZED Disposition Time: 20:05 Patient Plan: Admission Patient Problems: Current Active Problems Problem Status Onset Fever Acute Leukocytosis Acute UTI (urinary tract infection) Acute Condition: FAIR
[2018-04-01 20:03] LABS: URINE BILIRUBIN NEGATIVE (NEGATIVE); URINE BLOOD MODERATE (NEGATIVE); URINE GLUCOSE (UA) 100 mg/dL (NEGATIVE); URINE LEUKOCYTE ESTERASE SMALL Leu/uL (NEGATIVE); URINE PROTEIN 100 mg/dL (<30 mg/dL); URINE UROBILINOGEN 0.2 E.U./dL (<1 E.U./dL)
[2018-04-01 20:05] LABS: URINE APPEARANCE CLEAR (CLEAR); URINE COLOR YELLOW (YELLOW)
[2018-04-01 20:08] LABS: ALT/SGPT 35 U/L (7-56); AST/SGOT 30 U/L (14-36); BLOOD UREA NITROGEN 29 mg/dL (7-21); CALCIUM 9.9 mg/dL (8.4-10.5); GFR NON-AFRICAN AMERICAN > 60
[2018-04-01 20:14] LABS: TROPONIN I 0.02 ng/mL; URINE AMORPHOUS SEDIMENT FEW; URINE BACTERIA MANY (NEG); URINE RBC 25 - 30 /hpf (0-2)
[2018-04-01] MEDS ORDERED: Vancomycin 1gm in NS 250ml 1 GM/250 ML BAG IVPB STA (20:19)
[2018-04-01] MEDS ORDERED: Piperacillin/Tazobact 3.375 gm 100 ML IVPB STA (20:19)
[2018-04-01] MEDS ORDERED: Sodium Chloride 0.9% 500 ML IV STA (20:40)
[2018-04-02] MEDS: Insulin Reg-LOW-Coverage SC SCH ×2 (08:00→16:28)
[2018-04-02] MEDS: Micafungin 100 MG in Sodium Chloride 0.9% 100 ML IV SCH (10:08)
[2018-04-02] MEDS: POLYETHYLENE GLYCOL 3350 17 GM/Dose PACKET PO SCH ×3 (10:12→17:30)
[2018-04-02] MEDS: Vancomycin 1gm in NS 250ml 1 GM/250 ML BAG IVPB SCH ×2 (10:13→20:17)
[2018-04-02] MEDS: Meropenem IV 1 gm in NS 1 GM/50 ML BAG IVPB SCH ×3 (10:14→22:45)
--- NOTE | 2018-04-02 10:49 | CP.PCM.HP ---
<TimboGreg - Last Filed: 04/02/18 18:20> History of Present Illness - History of Present Illness History of Present Illness: Greg Izquierdo PGY2 IM H&P Note for Dr. Ritchie cc: fevers/chills and urinary frequency Ms. Nunez is an 83 yo female with past medical history of hypertension, diabetes, and nephrolithiasis who presented to the ED with urinary frequency and fever/chills. Of note, the patient was recently admitted to [facility] for nephrolithiasis, and found to have fungemia for which she had a PICC line placed and was started on micafungin. The patient currently denies any fever/chills, abdominal pain, nausea/vomiting, dysuria or hematuria. 12 point ROS was reviewed and is otherwise unremarkable 12point ROS as per above otherwise negative PMH: as stated above PSH: hysterectomy Allergies: NKDA Social Hx: denies tobacco, alcohol and illicit drug use Family Hx; noncontributory Present on Admission - Present on Admission Any Indicators Present on Admission: No Review of Systems - Review of Systems All systems: reviewed and no additional remarkable complaints except (as per HPI) Past Patient History - Infectious Disease Hx of Infectious Diseases: None - Tetanus Immunizations Tetanus Immunization: Unknown - Past Social History Smoking Status: Never Smoked Alcohol: None Drugs: Denies - CARDIAC Hx Pacemaker: No - PULMONARY Hx Respiratory Disorders: No - NEUROLOGICAL Hx Paralysis: No - HEENT Hx HEENT Problems: Yes - RENAL Hx Chronic Kidney Disease: No Hx Kidney Stones: Yes Other/Comment: Kidney stents - ENDOCRINE/METABOLIC Hx Diabetes Mellitus Type 2: Yes - HEMATOLOGICAL/ONCOLOGICAL Hx Cancer: No - INTEGUMENTARY Hx Dermatological Problems: No - MUSCULOSKELETAL/RHEUMATOLOGICAL Hx Musculoskeletal Disorders: No Hx Falls: No - GASTROINTESTINAL Hx Gastrointestinal Disorders: Yes Other/Comment: Nephrolithiasis - GENITOURINARY/GYNECOLOGICAL Hx Genitourinary Disorders: No - PSYCHIATRIC Hx Anxiety: Yes Hx Substance Use: No - SURGICAL HISTORY Hx Mastectomy: No - ANESTHESIA Hx Anesthesia Reactions: No Hx Malignant Hyperthermia: No Meds Allergies/Adverse Reactions: Allergies Allergy/AdvReac Type Severity Reaction Status Date / Time No Known Allergies Allergy Verified 04/01/18 18:25 Physical Exam - Constitutional Appears: Well, Non-toxic - Head Exam Head Exam: NORMAL INSPECTION - Eye Exam Eye Exam: EOMI, Normal appearance, PERRL - ENT Exam ENT Exam: Mucous Membranes Moist - Neck Exam Neck exam: Positive for: Normal Inspection - Respiratory Exam Respiratory Exam: NORMAL BREATHING PATTERN. absent: Rales, Rhonchi, Wheezes - Cardiovascular Exam Cardiovascular Exam: RRR, +S1, +S2 - GI/Abdominal Exam GI & Abdominal Exam: Normal Bowel Sounds, Soft. absent: Distended, Tenderness - Extremities Exam Extremities exam: Positive for: normal inspection - Neurological Exam Neurological exam: Alert, Oriented x3 - Psychiatric Exam Psychiatric exam: Normal Mood - Skin Skin Exam: Normal Color Results - Vital Signs Recent Vital Signs: Last Vital Signs Temp 98.3 F 04/02/18 07:46 Pulse 90 04/02/18 07:46 Resp 20 04/02/18 07:46 BP 136/82 04/02/18 10:12 Pulse Ox 98 04/02/18 07:46 - Labs Result Diagrams: 04/01/18 18:45 04/01/18 18:45 Labs: Laboratory Results - last 24 hr 04/01/18 04/01/18 04/01/18 18:45 18:45 18:45 WBC 12.0 H D RBC 4.20 Hgb 12.0 Hct 37.3 MCV 88.8 MCH 28.6 MCHC 32.2 RDW 16.1 H Plt Count 184 MPV 10.3 Gran % 83.4 H Lymph % (Auto) 6.2 L [place] % (Auto) 9.1 H Eos % (Auto) 1.1 L Baso % (Auto) 0.2 Gran # 10.05 H Lymph # (Auto) 0.7 L [place] # (Auto) 1.1 H Eos # (Auto) 0.1 Baso # (Auto) 0.02 ESR PT 11.3 INR 0.99 APTT 30.0 pO2 VBG pH VBG pCO2 VBG HCO3 VBG Total CO2 VBG O2 Sat (Calc) VBG Base Excess VBG Potassium Sodium Chloride Glucose Lactate FiO2 Potassium Carbon Dioxide Anion Gap BUN Creatinine Est GFR ( Amer) Est GFR (Non-Af Amer) Random Glucose Calcium Phosphorus Magnesium Total Bilirubin AST ALT Alkaline Phosphatase Lactate Dehydrogenase Total Creatine Kinase Troponin I Total Protein Albumin Globulin Albumin/Globulin Ratio Venous Blood Potassium Urine Color Yellow Urine Appearance Clear Urine pH 6.0 Ur Specific [place] 1.020 Urine Protein 100 H Urine Glucose (UA) 100 H Urine Ketones Negative Urine Blood Moderate H Urine Nitrate Positive H Urine Bilirubin Negative Urine Urobilinogen 0.2 Ur Leukocyte Esterase Small H Urine RBC 25 - 30 Urine WBC 5 - 10 Ur Epithelial Cells 3 - 4 Amorphous Sediment Few Urine Bacteria Many Urine Other Uyeast 04/01/18 04/01/18 04/02/18 18:45 18:45 07:30 WBC RBC Hgb Hct MCV MCH MCHC RDW Plt Count MPV Gran % Lymph % (Auto) [place] % (Auto) Eos % (Auto) Baso % (Auto) Gran # Lymph # (Auto) [place] # (Auto) Eos # (Auto) Baso # (Auto) ESR PT INR APTT pO2 39 VBG pH 7.39 VBG pCO2 45.0 VBG HCO3 27.2 VBG Total CO2 28.6 H VBG O2 Sat (Calc) 73.7 H VBG Base Excess 1.7 VBG Potassium 4.1 Sodium 137.0 137 Chloride 102.0 105 Glucose 207 H Lactate 1.6 FiO2 21.0 Potassium 4.3 Carbon Dioxide 25 Anion Gap 11 BUN 29 H Creatinine 0.7 Est GFR ( Amer) > 60 Est GFR (Non-Af Amer) > 60 Random Glucose 195 H Calcium 9.9 Phosphorus 3.1 Magnesium 1.9 Total Bilirubin 0.7 AST 30 ALT 35 Alkaline Phosphatase 140 H D Lactate Dehydrogenase 451 Total Creatine Kinase 38 Troponin I 0.02 0.05 D Total Protein 8.1 Albumin 4.0 Globulin 4.1 Albumin/Globulin Ratio 1.0 L Venous Blood Potassium 4.1 Urine Color Urine Appearance Urine pH Ur Specific [place] Urine Protein Urine Glucose (UA) Urine Ketones Urine Blood Urine Nitrate Urine Bilirubin Urine Urobilinogen Ur Leukocyte Esterase Urine RBC Urine WBC Ur Epithelial Cells Amorphous Sediment Urine Bacteria Urine Other 04/02/18 07:30 WBC RBC Hgb Hct MCV MCH MCHC RDW Plt Count MPV Gran % Lymph % (Auto) [place] % (Auto) Eos % (Auto) Baso % (Auto) Gran # Lymph # (Auto) [place] # (Auto) Eos # (Auto) Baso # (Auto) ESR 64 H PT INR APTT pO2 VBG pH VBG pCO2 VBG HCO3 VBG Total CO2 VBG O2 Sat (Calc) VBG Base Excess VBG Potassium Sodium Chloride Glucose Lactate FiO2 Potassium Carbon Dioxide Anion Gap BUN Creatinine Est GFR ( Amer) Est GFR (Non-Af Amer) Random Glucose Calcium Phosphorus Magnesium Total Bilirubin AST ALT Alkaline Phosphatase Lactate Dehydrogenase Total Creatine Kinase Troponin I Total Protein Albumin Globulin Albumin/Globulin Ratio Venous Blood Potassium Urine Color Urine Appearance Urine pH Ur Specific [place] Urine Protein Urine Glucose (UA) Urine Ketones Urine Blood Urine Nitrate Urine Bilirubin Urine Urobilinogen Ur Leukocyte Esterase Urine RBC Urine WBC Ur Epithelial Cells Amorphous Sediment Urine Bacteria Urine Other Assessment & Plan - Assessment and Plan (Free Text) Assessment: 83 yo female with past medical history of hypertension, diabetes, and nephrolithiasis who presented to the ED with urinary frequency and fever/chills, likely due to UTI vs nosocomial infection as patient has recent admission. CXR was reviewed. Due to prior fungemia, patient is continued on antifungal IV meds, and blood cultures drawn to r/o catheter-related infection (Midline) Plan: - cont Vanc and Meropenem pending cultures (blood and urine) - cont micafungin - ID consulted, recs appreciated - cont home meds - PT eval pending - further recs per Dr. Ritchie Case was reviewed and discussed with attending, Dr. Chau Izquierdo PGY2 <Juan Miguel Ritchie S - Last Filed: 04/02/18 20:18> Results - Vital Signs Recent Vital Signs: Last Vital Signs Temp 98.1 F 04/02/18 14:30 Pulse 95 H 04/02/18 14:30 Resp 18 04/02/18 14:30 BP 118/68 04/02/18 14:30 Pulse Ox 98 04/02/18 14:30 - Labs Result Diagrams: 04/01/18 18:45 04/01/18 18:45 Labs: Laboratory Results - last 24 hr 04/01/18 04/02/18 04/02/18 18:45 07:30 07:30 ESR 64 H POC Glucose (mg/dL) Troponin I 0.02 0.05 D C-Reactive Protein 04/02/18 04/02/18 07:30 11:55 ESR POC Glucose (mg/dL) 165 H Troponin I C-Reactive Protein 61.90 H Assessment & Plan - Assessment and Plan (Free Text) Assessment: Pt seen and examined. I have reviewed the note of the medical transcriptionist and agree with it. I have discussed the assessment and plan with the resident. I have reviewed the patient's labs and medications. Pt with sepsis most likely due to UTI. She will continue with Mycafungin for fungemia. The pt has DM-2 and will get fs with ISS coverage. BCx and UCx pending. HTN controlled with meds. Spoke to PMD (Dr Han). ID consulted.
--- NOTE | 2018-04-02 11:11 | RAD ---
Date of service: 04/01/2018 HISTORY: Sepsis Patient COMPARISON: 02/26/2018 FINDINGS: LUNGS: No active pulmonary disease. PLEURA: No significant pleural effusion identified, no pneumothorax apparent. CARDIOVASCULAR: Atherosclerotic calcifications identified primarily aortic arch. Cardiomegaly. No evidence of acute, significant cardiovascular disease. OSSEOUS STRUCTURES: No significant abnormalities. VISUALIZED UPPER ABDOMEN: Normal. OTHER FINDINGS: None. IMPRESSION: No active disease. No significant interval change compared to the prior examination(s).
--- NOTE | 2018-04-02 16:37 | CARD ---
APPROVED REPORT Date of service: 04/01/2018 EKG Measurement Heart [id number] <Conclusion> Sinus tachycardia Possible Left atrial enlargement Left axis deviation Anterior infarct, age undetermined Abnormal ECG
[2018-04-02] MEDS ORDERED: MICAFUNGIN 100 MG IV SCH (22:00)
[2018-04-02] MEDS ORDERED: Micafungin 100 MG in Sodium Chloride 0.9% 100 ML IV SCH (22:00)
[2018-04-03] MEDS: Meropenem IV 1 gm in NS 1 GM/50 ML BAG IVPB SCH ×3 (06:06→21:23)
[2018-04-03 07:38] LABS: BASO # 0.01 K/mm3 (0.0-2.0); BASO % 0.1 % (0.0-3.0); EOS # 0.2 (0.0-0.7); EOS % 2.3 % (1.5-5.0); GRAN # 7.62 (1.4-6.5); GRAN % 80.1 % (50.0-68.0); HEMOGLOBIN 11.3 g/dL (12.0-16.0); LYMPH # 0.8 (1.2-3.4); MEAN CELL VOLUME 88.4 fl (80.0-105.0); MEAN CORPUSCULAR HEMOGLOBIN 28.4 pg (25.0-35.0); MEAN CORPUSCULAR HGB CONC 32.1 g/dl (31.0-37.0); MEAN PLATELET VOLUME 9.8 fl (7.0-11.0); MONO # 0.9 (0.1-0.6); MONO % 9.5 % (1.0-6.0); RBC 3.98 10^6/uL (3.5-6.1); RED CELL DISTRIBUTION WIDTH 16.4 % (11.5-14.5); WHITE BLOOD COUNT 9.5 10^3/ul (4.5-11.0)
[2018-04-03 07:41] VITALS: RESP 20; O2SAT 96
--- NOTE | 2018-04-03 07:42 | CON ---
DATE: 04/02/2018 The patient was seen in room 578 HISTORY OF PRESENT ILLNESS: The patient is an 83-year-old female last admission has received a PICC line and was getting Mycamine at home. Also has anxiety now. Is admitted with fevers at home and chills at home. The patient still has a PICC line and has been getting Mycamine, continuing with therapy. She does have frequency. She denies any dysuria. No chest pain, shortness of breath or cough. No headaches or blurred vision. No neck pain or sore throat. REVIEW OF SYSTEMS: The patient did have 12-point review of systems performed . PAST MEDICAL HISTORY: Significant for recent Kathya glabrata fungemia, anxiety, kidney stone, hypertension, high cholesterol, diabetes, and arthritis. PAST SURGICAL HISTORY: Significant for hysterectomy, cataract, and cardiac cath. ALLERGIES: NO KNOWN ALLERGIES. MEDICATIONS: Reviewed. PHYSICAL EXAMINATION VITAL SIGNS: Temperature is 99.2, heart rate of 105, respiratory rate of 20, blood pressure 120/70. HEENT: Unremarkable. NECK: Supple. LUNGS: Decreased breath sounds. HEART: Normal S1,S2. ABDOMEN: Soft, nontender. No hepatomegaly, no rebound, no guarding, and no masses. LABORATORY DATA: Reveals a white count of 12,000, hemoglobin of 12, platelets of 184. Chemistries revealed a BUN of 29, creatinine of 0.7, alkaline phosphatase of 140. Urinalysis reveals there is yeast and 5-10 wbc's. ASSESSMENT/PLAN: The patient is an 83-year-old female with hypertension, diabetes, kidney stone, high cholesterol, Kathya glabrata, who has a left arm PICC line, site looks clean at this time, must rule out sepsis from a PICC line bacteremia. Will continue the Mycamine for now. Order a sedimentation rate, C-reactive protein, add Vancomycin and meropenem. Pending RESENDIZ cultures, broad urine cultures and chest x-ray results. Will follow closely with you. Abelino Hoang MD (Delete this signature block when dictator is a preceptor.) [facility] # [id number]
[2018-04-03 07:50] LABS: ALBUMIN 3.6 g/dL (3.0-4.8); ALT/SGPT 35 U/L (7-56); AST/SGOT 30 U/L (14-36); BLOOD UREA NITROGEN 15 mg/dL (7-21); CALCIUM 9.4 mg/dL (8.4-10.5); GFR NON-AFRICAN AMERICAN > 60
[2018-04-03] MEDS: Vancomycin 1gm in NS 250ml 1 GM/250 ML BAG IVPB SCH ×2 (08:18→21:56)
[2018-04-03] MEDS: Insulin Reg-LOW-Coverage SC SCH ×2 (08:18→18:17)
--- NOTE | 2018-04-03 09:39 | CP.PCM.PN ---
<Lexii Staley - Last Filed: 04/03/18 13:29> Subjective - Date & Time of Evaluation Date of Evaluation: 04/03/18 Time of Evaluation: 07:45 - Subjective Subjective: Lexii Staley DO, PGY-2: Progress Note for Dr. Ritchie Patient was seen and examined at the bedside. Patient reports waiting for her blood cultures. She denies having any fever, chills, nausea, vomiting, or dysuria. Otherwise, no adverse events noted overnight. Objective - Vital Signs/Intake and Output Vital Signs (last 24 hours): Temp Pulse Resp BP Pulse Ox 98.2 F 92 H 20 136/68 96 04/03/18 06:00 04/03/18 06:00 04/03/18 06:00 04/03/18 06:00 04/03/18 06:00 Intake and Output: 04/03/18 04/03/18 06:59 18:59 Intake Total 620 Balance 620 - Medications Medications: Current Medications Acetaminophen (Tylenol 325mg Tab) 650 mg PO Q6H PRN PRN Reason: Headache Last Admin: 04/02/18 20:16 Dose: 650 mg Atorvastatin Calcium (Lipitor) 40 mg PO DIN [facility] Last Admin: 04/02/18 17:30 Dose: 40 mg Clonazepam (Klonopin) 0.25 mg PO BID PRN; Protocol PRN Reason: Anxiety Glimepiride (Amaryl) 4 mg PO BID [facility] Last Admin: 04/02/18 17:30 Dose: 4 mg Meropenem (Merrem Iv 1 Gm Premix) 1 gm in 50 mls @ 100 mls/hr IVPB Q8 [facility]; Protocol Stop: 04/11/18 08:02 Last Admin: 04/03/18 06:06 Dose: 100 mls/hr Vancomycin HCl (Vancomycin 1gm) 1 gm in 250 mls @ 167 mls/hr IVPB Q12H [facility]; Protocol Stop: 04/11/18 08:01 Last Admin: 04/03/18 08:18 Dose: 167 mls/hr Micafungin Sodium 100 mg/ (Sodium Chloride) 100 mls @ 100 mls/hr IV DAILY [facility]; Protocol Stop: 04/09/18 10:01 Last Admin: 04/02/18 10:08 Dose: 100 mls/hr Insulin Human Regular (Humulin R Low) 0 units SC ACBD [facility]; Protocol Last Admin: 04/03/18 08:18 Dose: Not Given Losartan Potassium (Cozaar) 50 mg PO DAILY [facility] Last Admin: 04/02/18 10:12 Dose: 50 mg Polyethylene Glycol (Miralax) 17 gm PO BID [facility] Last Admin: 04/02/18 17:30 Dose: Not Given - Labs Labs: 04/03/18 07:20 04/03/18 07:20 PT 11.3 SECONDS (9.4-12.5) 04/01/18 18:45 INR 0.99 04/01/18 18:45 APTT 30.0 Seconds (25.1-36.5) 04/01/18 18:45 - Constitutional Appears: Well, Non-toxic - Head Exam Head Exam: ATRAUMATIC, NORMOCEPHALIC - Eye Exam Eye Exam: EOMI, Normal appearance - ENT Exam ENT Exam: Mucous Membranes Moist - Neck Exam Neck Exam: Normal Inspection - Respiratory Exam Respiratory Exam: Clear to Ausculation Bilateral, NORMAL BREATHING PATTERN. absent: Accessory Muscle Use - Cardiovascular Exam Cardiovascular Exam: RRR, +S1, +S2 - GI/Abdominal Exam GI & Abdominal Exam: Soft, Normal Bowel Sounds - Extremities Exam Extremities Exam: Normal Inspection. absent: Calf Tenderness - Back Exam Back Exam: NORMAL INSPECTION. absent: CVA tenderness (L), CVA tenderness (R) - Neurological Exam Neurological Exam: Alert, Awake, Oriented x3 - Psychiatric Exam Psychiatric exam: Normal Affect, Normal Mood - Skin Skin Exam: Dry, Intact, Normal Color, Warm Assessment and Plan - Assessment and Plan (Free Text) Assessment: 83 yo female with past medical history of hypertension, diabetes, and nephrolithiasis who presented to the ED with urinary frequency and fever/chills, likely due to UTI vs nosocomial infection as patient has recent admission. CXR was reviewed. Due to prior fungemia, patient is continued on antifungal IV meds, and blood cultures drawn to r/o catheter-related infection (Midline). Plan: - cont Vanc and Meropenem pending cultures (blood and urine) - Urine culture is growing gram negative ghazal with greater than 100,000 CFU - cont micafungin - ID consulted, recs appreciated - cont home meds - PT recommends HWS 5-6 times per week - further recs per Dr. Ritchie Case was reviewed and discussed with attending, Dr. Chau Staley PGY2 <Juan Miguel Ritchie S - Last Filed: 04/03/18 15:47> Objective - Vital Signs/Intake and Output Vital Signs (last 24 hours): Temp Pulse Resp BP Pulse Ox 98.2 F 95 H 20 133/66 96 04/03/18 06:00 04/03/18 10:08 04/03/18 06:00 04/03/18 10:08 04/03/18 06:00 Intake and Output: 04/03/18 04/03/18 06:59 18:59 Intake Total 620 Balance 620 - Medications Medications: Current Medications Acetaminophen (Tylenol 325mg Tab) 650 mg PO Q6H PRN PRN Reason: Headache Last Admin: 04/03/18 14:52 Dose: 650 mg Atorvastatin Calcium (Lipitor) 40 mg PO DIN [facility] Last Admin: 04/02/18 17:30 Dose: 40 mg Clonazepam (Klonopin) 0.25 mg PO BID PRN; Protocol PRN Reason: Anxiety Glimepiride (Amaryl) 4 mg PO BID [facility] Last Admin: 04/03/18 10:08 Dose: 4 mg Meropenem (Merrem Iv 1 Gm Premix) 1 gm in 50 mls @ 100 mls/hr IVPB Q8 [facility]; Protocol Stop: 04/11/18 08:02 Last Admin: 04/03/18 14:02 Dose: 100 mls/hr Vancomycin HCl (Vancomycin 1gm) 1 gm in 250 mls @ 167 mls/hr IVPB Q12H [facility]; Protocol Stop: 04/11/18 08:01 Last Admin: 04/03/18 08:18 Dose: 167 mls/hr Micafungin Sodium 100 mg/ (Sodium Chloride) 100 mls @ 100 mls/hr IV DAILY [facility]; Protocol Stop: 04/09/18 10:01 Last Admin: 04/03/18 10:09 Dose: 100 mls/hr Insulin Human Regular (Humulin R Low) 0 units SC ACBD [facility]; Protocol Last Admin: 04/03/18 08:18 Dose: Not Given Losartan Potassium (Cozaar) 50 mg PO DAILY [facility] Last Admin: 04/03/18 10:08 Dose: 50 mg Polyethylene Glycol (Miralax) 17 gm PO BID [facility] Last Admin: 04/03/18 10:09 Dose: 17 gm - Labs Labs: 04/03/18 07:20 04/03/18 07:20 PT 11.3 SECONDS (9.4-12.5) 04/01/18 18:45 INR 0.99 04/01/18 18:45 APTT 30.0 Seconds (25.1-36.5) 04/01/18 18:45 Assessment and Plan - Assessment and Plan (Free Text) Assessment: Pt seen and examined. I have reviewed the note of the medical sociologist and agree with it. I have discussed the assessment and plan with the resident. I have reviewed the patient's labs and medications. Pt with sepsis due to UTI from gram neg rods. Will need to wait for final results. I spoke to ID. She will continue with her Abx. She is also on Micafungin for fungemia. She will be finishing her medication this week. She is eating well and has not pain.
[2018-04-03] MEDS: Micafungin 100 MG in Sodium Chloride 0.9% 100 ML IV SCH (10:09)
[2018-04-03] MEDS: POLYETHYLENE GLYCOL 3350 17 GM/Dose PACKET PO SCH ×2 (10:09→18:19)
--- NOTE | 2018-04-03 12:27 | PN ---
DATE: 04/03/2018 SUBJECTIVE: The patient is in bed, in no acute distress, nontoxic. PHYSICAL EXAMINATION: VITAL SIGNS: On exam, temperature is 98, blood pressure is 130/60, respiratory rate of 20. HEENT: Examination of HEENT is unremarkable. NECK: Supple. LUNGS: Have decreased breath sounds. HEART: Normal S1, S2. ABDOMEN: Soft, nontender. LABORATORY DATA: Laboratory examination reveals a white count of 9.5, hemoglobin of 11, sed rate is 64. Chemistries are noted. Gram-negative ghazal in the urine. The blood cultures are negative. 5-10 wbc's in urinalysis. Review of orders reveals the patient to be on vancomycin, meropenem and Mycamine. ASSESSMENT AND PLAN: An 83-year-old female with hypertension, diabetes, kidney stones, high cholesterol, Kathya glabrata, left arm peripherally inserted central catheter line with sepsis. Must rule out sepsis from a peripherally inserted central catheter bacteremia. The blood cultures thus far negative. There is a gram-negative ghazal in the urine, although she is having frequency. Urinalysis is not that significant. On vancomycin and meropenem. We will follow with you. Pending identification of gram-negative rods, final blood culture results. She feels fine. Probably, we will discontinue the peripherally inserted central catheter line and the Mycamine and switch to p.o. antibiotics for the urine. Pending final culture results. Abelino Hoang MD
[2018-04-03 23:03] VITALS: BP 146/81; PULSE 60; TEMP 97.9
[2018-04-04] MEDS: Meropenem IV 1 gm in NS 1 GM/50 ML BAG IVPB SCH (06:11)
[2018-04-04] MEDS: Insulin Reg-LOW-Coverage SC SCH (08:00)
--- NOTE | 2018-04-04 08:46 | PN ---
DATE: 04/04/2018 SUBJECTIVE: The patient is seen earlier this morning. She stated that she is adamant about being discharged today. She wants to go home even if she has decided against medical advice that she is doing better. No fevers. No chills. No abdominal pain, diarrhea or constipation. She was not having any dysuria, although she is complaining of frequency. PHYSICAL EXAMINATION: VITAL SIGNS: On exam, temperature is 98, blood pressure is 140/80, respiratory rate of 20, heart rate of 95. HEENT: Examination of HEENT is unremarkable. NECK: Supple. LUNGS: Have decreased breath sounds. HEART: Normal S1, S2. ABDOMEN: Soft, nontender. LABORATORY DATA: Laboratory examination reveals a white count of 9.5, hemoglobin of 11, platelets of 152. BUN of 15, creatinine of 0.6. Urinalysis is noted. Microbiology reveals there is Enterobacter cloacae, species cloacae. Sensitivity is reviewed it is resistant to cefazolin and it is resistant to ceftriaxone. Sensitive to Cipro, ertapenem, meropenem, nitrofurantoin. Resistant to Bactrim. The blood cultures are reported to be no growth at this time. ASSESSMENT AND PLAN: This is an 83-year-old female with diabetes mellitus, hypertension, kidney stone, high cholesterol, Kathya glabrata, left peripherally inserted central catheter in arm with sepsis with Enterobacter cloacae, urine as the source. We will discontinue the peripherally inserted central catheter line. Discontinue the Mycamine. Discontinue the vancomycin and meropenem and switch to p.o. Cipro at 500 mg p.o. b.i.d. x7 days. The patient to follow up with PMD. Abelino Hoang MD
[2018-04-04] MEDS: POLYETHYLENE GLYCOL 3350 17 GM/Dose PACKET PO SCH (09:37)
--- NOTE | 2018-04-04 09:44 | CP.PCM.DIS ---
Provider - Provider Date of Admission: 04/01/18 20:31 Attending physician: Juan Miguel Ritchie MD Primary care physician: Carlene Han MD Consults: Dr. Hoang Time Spent in preparation of Discharge (in minutes): 35 Hospital Course - Lab Results Lab Results: Micro Results 04/01/18 18:45 Urine Urine Culture - Final Enterobacter Cloacae Ssp [place]ac 04/01/18 20:30 Blood Blood Culture - Preliminary NO GROWTH AFTER 48 HOURS 04/01/18 18:45 Blood Blood Culture - Preliminary NO GROWTH AFTER 48 HOURS Most Recent Lab Values WBC 9.5 10^3/ul (4.5-11.0) D 04/03/18 07:20 RBC 3.98 10^6/uL (3.5-6.1) 04/03/18 07:20 Hgb 11.3 g/dL (12.0-16.0) L 04/03/18 07:20 Hct 35.2 % (36.0-48.0) L 04/03/18 07:20 MCV 88.4 fl (80.0-105.0) 04/03/18 07:20 MCH 28.4 pg (25.0-35.0) 04/03/18 07:20 MCHC 32.1 g/dl (31.0-37.0) 04/03/18 07:20 RDW 16.4 % (11.5-14.5) H 04/03/18 07:20 Plt Count 152 10^3/uL (120.0-450.0) 04/03/18 07:20 MPV 9.8 fl (7.0-11.0) 04/03/18 07:20 Gran % 80.1 % (50.0-68.0) H 04/03/18 07:20 Lymph % (Auto) 8.0 % (22.0-35.0) L 04/03/18 07:20 [place] % (Auto) 9.5 % (1.0-6.0) H 04/03/18 07:20 Eos % (Auto) 2.3 % (1.5-5.0) 04/03/18 07:20 Baso % (Auto) 0.1 % (0.0-3.0) 04/03/18 07:20 Gran # 7.62 (1.4-6.5) H 04/03/18 07:20 Lymph # (Auto) 0.8 (1.2-3.4) L 04/03/18 07:20 [place] # (Auto) 0.9 (0.1-0.6) H 04/03/18 07:20 Eos # (Auto) 0.2 (0.0-0.7) 04/03/18 07:20 Baso # (Auto) 0.01 K/mm3 (0.0-2.0) 04/03/18 07:20 ESR 64 mm/hr (0.0-20.0) H 04/02/18 07:30 PT 11.3 SECONDS (9.4-12.5) 04/01/18 18:45 INR 0.99 04/01/18 18:45 APTT 30.0 Seconds (25.1-36.5) 04/01/18 18:45 pO2 39 mm/Hg (30-55) 04/01/18 18:45 VBG pH 7.39 (7.32-7.43) 04/01/18 18:45 VBG pCO2 45.0 (40-60) 04/01/18 18:45 VBG HCO3 27.2 mmol/l (21-28) 04/01/18 18:45 VBG Total CO2 28.6 mmol.L (22-28) H 04/01/18 18:45 VBG O2 Sat (Calc) 73.7 % (40-65) H 04/01/18 18:45 VBG Base Excess 1.7 mmol/L (0.0-2.0) 04/01/18 18:45 VBG Potassium 4.1 mmol/L (3.6-5.2) 04/01/18 18:45 Sodium 137.0 mmol/L (132-148) 04/01/18 18:45 Chloride 102.0 mmol/L (98-107) 04/01/18 18:45 Glucose 207 mg/dl (65-105) H 04/01/18 18:45 Lactate 1.6 mmol/L (0.7-2.1) 04/01/18 18:45 FiO2 21.0 % 04/01/18 18:45 Sodium 139 mmol/L (132-148) 04/03/18 07:20 Potassium 4.2 mmol/L (3.6-5.0) 04/03/18 07:20 Chloride 107 mmol/L (98-107) 04/03/18 07:20 Carbon Dioxide 25 mmol/L (21-33) 04/03/18 07:20 Anion Gap 12 (10-20) 04/03/18 07:20 BUN 15 mg/dL (7-21) 04/03/18 07:20 Creatinine 0.6 mg/dl (0.7-1.2) L 04/03/18 07:20 Est GFR ( Amer) > 60 04/03/18 07:20 Est GFR (Non-Af Amer) > 60 04/03/18 07:20 POC Glucose (mg/dL) 147 mg/dL (65-110) H 04/03/18 17:41 Random Glucose 173 mg/dL (70-110) H 04/03/18 07:20 Calcium 9.4 mg/dL (8.4-10.5) 04/03/18 07:20 Phosphorus 3.1 mg/dL (2.5-4.5) 04/01/18 18:45 Magnesium 2.0 mg/dL (1.7-2.2) 04/03/18 07:20 Total Bilirubin 0.8 mg/dL (0.2-1.3) 04/03/18 07:20 AST 30 U/L (14-36) 04/03/18 07:20 ALT 35 U/L (7-56) 04/03/18 07:20 Alkaline Phosphatase 139 U/L (38-126) H 04/03/18 07:20 Lactate Dehydrogenase 451 U/L (333-699) 04/01/18 18:45 Total Creatine Kinase 38 U/L (35-230) 04/01/18 18:45 Troponin I 0.05 ng/mL D 04/02/18 07:30 C-Reactive Protein 61.90 mg/L (0.0-9.9) H 04/02/18 07:30 Total Protein 7.3 g/dL (5.8-8.3) 04/03/18 07:20 Albumin 3.6 g/dL (3.0-4.8) 04/03/18 07:20 Globulin 3.7 gm/dL 04/03/18 07:20 Albumin/Globulin Ratio 1.0 (1.1-1.8) L 04/03/18 07:20 Venous Blood Potassium 4.1 mmol/L (3.6-5.2) 04/01/18 18:45 Urine Color Yellow (YELLOW) 04/01/18 18:45 Urine Appearance Clear (CLEAR) 04/01/18 18:45 Urine pH 6.0 (4.7-8.0) 04/01/18 18:45 Ur Specific [place] 1.020 (1.005-1.035) 04/01/18 18:45 Urine Protein 100 mg/dL (<30 mg/dL) H 04/01/18 18:45 Urine Glucose (UA) 100 mg/dL (NEGATIVE) H 04/01/18 18:45 Urine Ketones Negative mg/dL (NEGATIVE) 04/01/18 18:45 Urine Blood Moderate (NEGATIVE) H 04/01/18 18:45 Urine Nitrate Positive (NEGATIVE) H 04/01/18 18:45 Urine Bilirubin Negative (NEGATIVE) 04/01/18 18:45 Urine Urobilinogen 0.2 E.U./dL (<1 E.U./dL) 04/01/18 18:45 Ur Leukocyte Esterase Small [place]/uL (NEGATIVE) H 04/01/18 18:45 Urine RBC 25 - 30 /hpf (0-2) 04/01/18 18:45 Urine WBC 5 - 10 /hpf (0-6) 04/01/18 18:45 Ur Epithelial Cells 3 - 4 /hpf (0-5) 04/01/18 18:45 Amorphous Sediment Few 04/01/18 18:45 Urine Bacteria Many (NEG) 04/01/18 18:45 Urine Other [place] 04/01/18 18:45 - Hospital Course Hospital Course: Ms. Nunez is an 83 yo female with past medical history of hypertension, diabetes, and nephrolithiasis who presented to the ED with urinary frequency and fever/chills. Of note, the patient was recently admitted to [facility] for nephrolithiasis, and found to have fungemia for which she had a PICC line placed and was started on micafungin. The patient currently denies any fever/chills, abdominal pain, nausea/vomiting, dysuria or hematuria. Blood cultures x 2 upon admission were negative. Urine culture grew gram negative rods, greater than 100,000 CFU, Enterobacter Cloacae, sensitive to Ciprofloxacin. She also completed her course of Micafungin, per ID, Dr. Abelino Hoang, and thus her PICC was removed also on the day of discharge. She will follow up with her PMD, Dr. Han, this coming Monday. - Date & Time of H&P Date of H&P: 04/04/18 Time of H&P: 14:12 Discharge Exam - Head Exam Head Exam: ATRAUMATIC, NORMOCEPHALIC - Eye Exam Eye Exam: EOMI, Normal appearance - Neck Exam Neck exam: Normal Inspection - Respiratory Exam Respiratory Exam: Clear to PA & Lateral, NORMAL BREATHING PATTERN. absent: Accessory Muscle Use - Cardiovascular Exam Cardiovascular Exam: RRR, +S1, +S2 - GI/Abdominal Exam GI & Abdominal Exam: absent: Guarding - Extremities Exam Extremities exam: normal inspection - Back Exam Back exam: NORMAL INSPECTION. absent: CVA tenderness (L), CVA tenderness (R) - Neurological Exam Neurological exam: Alert, CN II-XII Intact, Oriented x3 - Psychiatric Exam Psychiatric exam: Normal Affect, Normal Mood - Skin Skin Exam: Dry, Intact, Normal Color, Warm Discharge Plan - Discharge Medications Prescriptions: Ciprofloxacin HCl [Cipro] 500 mg PO Q12H #14 tablet - Follow Up Plan Condition: FAIR Disposition: HOME/ ROUTINE Instructions: Urinary Tract Infection in Women (DC), Urinary Tract Infection in Men (DC), Leukocytosis (DC), Leukocytosis (GEN), Dysuria (GEN) Additional Instructions: 1) Patient to follow up with PMD, Dr. Han on Monday04/06/18 as scheduled. 2) Patient to take Ciprofloxacin 500 mg q12h for seven days for UTI. 3) Patient to return to the ED for recurrence of symptoms. 4) Patient advised to avoid any heavy lifting (anything greater than 10 pounds) or strenuous activity while taking Ciprofloxacin. Referrals: Carlene Han MD [Primary Care Provider] -
--- NOTE | 2018-04-05 10:08 | DS ---
This is an addendum to discharge summary written by the resident. Discharge summary reviewed and agreed. The patient is 83 years old who was admitted with altered mental status. She was found to have UTI. She had fever and chills. She was previously admitted for nephrolithiasis. At that point, she had fungemia and she was treated for a month with Mycamine and PICC line was removed today. On examination, the patient's physical exam was unremarkable. The patient is in stable condition for discharge. She will follow with Dr. Carlene Marie and she will resume her medication including clonidine, Cozaar 50 mg daily, Lipitor 40 mg daily, glimepiride 4 mg twice a day and she was given Cipro 500 twice a day for seven days. Mary Beth Leon MD [facility] # [id number]
== END 2018-04-04 15:28 | disposition home or self-care (01) | DRG 872 ==
LOC: ED 18:10 → ERH 20:31 → 5RSO 21:45 → 5RNO 04-03 14:54
PROVIDERS: ADMIT Internal Medicine Nephrology; ATTEND Internal Medicine Nephrology
PROC: 2W5 Placement, Anatomical Regions, Removal (ICD-10-PCS; principal; 2018-04-04)
DX: A41.9 Sepsis, unspecified organism (principal); N39.0 Urinary tract infection, site not specified; B49 Unspecified mycosis; B96.89 Other specified bacterial agents as the cause of diseases classified elsewhere; E11.9 Type 2 diabetes mellitus without complications; N20.0 Calculus of kidney; I10 Essential (primary) hypertension; E78.00 Pure hypercholesterolemia, unspecified; F41.9 Anxiety disorder, unspecified

== ENCOUNTER 2018-09-06 07:30 | Outpatient (CLI) | payer MEDICARE, OTHER | END 2018-09-06 07:31 | disposition home or self-care (01) | LOC: RAD 07:30 ==

== ENCOUNTER 2018-10-10 06:10 | Day surgery (SDC) | payer MEDICARE, OTHER ==
[2018-10-02 16:18] VITALS: BMI 37.0
[2018-10-10] MEDS ORDERED: Propofol 10 mg/ml Inj (20 ML) ONE (07:37)
[2018-10-10] MEDS ORDERED: Lidocaine 1% Inj (20ml) ONE (07:37)
[2018-10-10] MEDS ORDERED: cefTRIAXone (Rocephin) 1 gm Inj ONE (07:53)
[2018-10-10] MEDS ORDERED: Iohexol 240 (50 ml) ONE (07:53)
[2018-10-10] MEDS ORDERED: Morphine 2 mg/ml ISec IVP PRN (08:41)
[2018-10-10] MEDS ORDERED: Lactated Ringer's 1,000 ML IV SCH (08:45)
[2018-10-10] MEDS ORDERED: Ciprofloxacin 400mg/200ml D5W 400 MG/200 ML BAG IVPB STA (08:58)
[2018-10-10] MEDS ORDERED: Oxycodone/Acetaminophen 5/325 mg Tab PO PRN (09:00)
[2018-10-10] MEDS ORDERED: Ciprofloxacin 400mg/200ml D5W IVPB ONE (09:11)
[2018-10-10 09:34] VITALS: PULSE 77; RESP 18; TEMP 97.4; O2SAT 94
[2018-10-10 11:37] VITALS: BP 156/84
--- NOTE | 2018-10-10 13:06 | RAD ---
Date of service: 10/10/2018 PROCEDURE: Retrograde pyelogram HISTORY: STENT PLACEMENT COMPARISON: TECHNIQUE: 33.2 sec of fluoro time. 11.31 mGy. Fifteen images FINDINGS: The study shows placement of a right ureteral stent. IMPRESSION: As above
--- NOTE | 2018-10-15 05:32 | HP ---
DATE OF EXAM: 10/10/2018 UROLOGY ADMISSION REASON FOR ADMISSION: For treatment of kidney stones and recurrent infection. HISTORY OF PRESENT ILLNESS: Ms. Crowley is a very pleasant lady. She is a patient of Dr. Han and she sees Dr. Han and previously she had seen Dr. Florence who had been observing her for kidney stones and infections and she is a little fearful for this long stones to come back. We discussed the options because I explained to her sometimes observing stones can occur without infections. After discussing with Dr. Han and because they came in for specifically treatment and will not completely getting treated and were getting observed previously and was very fearful of infections, so we will bring her in now specifically for cystoscopy stent and eventually for ureteroscopy and laser lithotripsy (I even discuss with the patient that we might do it here depending on how he respond clinically, but more likely we are just going to put a stent, dilate the ureter. I also discussed the possibility going up to [place], but I do not think that it is going to work out well for the patient. PAST MEDICAL AND SURGICAL HISTORY: As listed on the chart. The patient is Dr. Hackett now, was previously the patient of Dr. Reid and the patient of Dr. Han. We have medical clearance. See the chart notes for further details. SOCIAL HISTORY: On a social note, I think it is unremarkable. Very minimal urology history. REVIEW OF SYSTEMS: As listed above. No weight loss, chest pain, or shortness of breath that are . PAST MEDICAL AND SURGICAL HISTORY: As listed. MEDICATIONS: As listed on the chart as well. PHYSICAL EXAMINATION: GENERAL: A well-nourished female in no apparent distress. VITAL SIGNS: Noted to be within normal limits. LUNGS: Clear. ABDOMEN: Overall soft and nontender. No flank mass is appreciated. PELVIC: mild cystocele is noted. No rectal or pelvic masses. LABORATORY DATA: CT scan, urine cultures all list is noted on the chart, specifically blood cultures, urine cultures everything is noted on the chart. The previous cultures from a month ago. DIAGNOSES: Urolithiasis, recurrent urinary tract infection with the possibility for sepsis and previous treatment and that is why we are treating her today. We discussed the options with the patient. We discussed risks, benefits, and treatment alternatives and we discussed putting a stent. The patient's real fear is that she should not keep her stent in for too long; however, if she was getting septic again and not getting better. So, we discussed options with the patient about risks, benefits, and treatment alternatives. She would likely be taking care of her. We discussed this as well in terms of returning to the previous urologist, which is actually another way to approach this whole thing. But after doing all this discussion with the patient, the plan is as follows: 1. Cystoscopy. 2. Stent insertion. 3. Possible ureteroscopy today or next week, but I explained to the patient we will work as quickly as possible not keep her too long with the stent. She previously had a stent and apparently for 3-4 months and it was very traumatic for her and she does not want this to happen again and I think that is somewhat of her concerns before in fact she consider further interventions. I guaranteed her that we will stay on top of this and not allow her to stay for too long and we will work as quickly as diligently as we can. So further plans will follow. Risks and benefits discussed at length. PLAN: 1. Antibiotic prophylaxis. 2. Cystoscopy. 3. Stent insertion in particularly on the right side and then further plans we will follow. I did discuss the possibility for ureteroscopy and renoscopy and laser lithotripsy, but we will have to see how the procedure goes this up. ADDENDUM: See the operative note; we decided for safety reason just to put double-J stent in. There were no complications and really minimal anesthesia to the whole process. Enrique Carrington MD
--- NOTE | 2018-10-15 06:55 | OP ---
PROCEDURE DATE: 10/10/2018 PREOPERATIVE DIAGNOSES: Urolithiasis, hematuria, recurrent urinary tract infection, intermittent flank pain, and concerns over impending sepsis. POSTOPERATIVE DIAGNOSES: Urolithiasis, hematuria, recurrent urinary tract infection, intermittent flank pain, and concerns over impending sepsis. PROCEDURES: Exam under anesthesia, cystoscopy, right retrograde pyelogram, revision of right double-J stent. SURGEON: Enrique Carrington MD ESTIMATED BLOOD LOSS: Less than 10 mL. UROLOGY OPERATIVE FINDINGS: 1. Bladder mucosa is within normal limits. There are these little benign-appearing lesions in the multiple pictures that were taken and saved, but chronic cystis picture. Nothing too concerning. 2. The ureteral orifice showed clear efflux. 3. We did a retrograde pyelogram. 4. We inserted a double-J stent. COMPLICATIONS: There were no complications. INDICATIONS: See history and physical. We had discussed options with the patient. She . We did discuss the possibility for uteroscopy and lithotripsy. After working with the patient what we found and the history of positive infection, I did not want to over-manipulate the system. We kept the anesthesia down to a minimum, and we did a cysto and quick insertion of stent. We will plan to treat as quickly as we can. Given her age, I may wait. She does, as mentioned in the history and physical, appear very young for her stated age, but the fact is that she is still in the mid 80s. DESCRIPTION OF PROCEDURE: After obtaining informed consent, the patient was placed on the table. Routine monitors were placed. Time-out was called to confirm the patient and positioning. Antibiotic prophylaxis was used. We confirmed our patient and positioning. We introduced the cystoscope via the urethra. The ureteral orifice was identified. Bladder was inspected carefully. I do want to mention the urology operative findings. Pictures were taken and showed these benign-appearing yellow flaky-like lesions. It is just chronic cystitis that is frequent amongst many woman as they get somewhat older. Ureteral orifice identified. Retrograde pyelogram is performed. We put a double-J stent in. No other major, major abnormalities detected. Given this finding, I do not want to be chasing the stone today. I just want to drain the kidney. antibiotic prophylaxis further, and then we will make plans for a followup ureteroscopy, laser lithotripsy, and then further plans will follow. Enrique Carrington MD
--- NOTE | 2018-10-15 09:23 | PN ---
DATE: 10/10/2018 IMMEDIATE POSTOPERATIVE NOTE See the history and physical and operative note. The patient is status post cystoscopy and a stent insertion. I explained to the patient urology operative findings. She is doing well. We did not do ureteroscopy, renoscopy for various reasons. We discussed options with the patient and explained our operative findings. The patient will be able to be discharged home in a relatively rapid sequence from today's procedure and we are going to readmit her and at that time, I did explain to her that, we may do more work with the renoscopy and laser lithotripsy, and it is possible at that point that we may require admission given her overall general status. We discussed with her at length. Meanwhile, the patient tolerated today's procedure well, she is status post cystoscopy and a stent insertion. She is doing well. Vital signs are within normal limits. Everything looks great on the patient. Enrique Carrington MD
== END 2018-10-10 11:36 | disposition home or self-care (01) ==
LOC: SDS 06:10
PROVIDERS: ATTEND Urology
DX: N30.21 Other chronic cystitis with hematuria (principal); N20.0 Calculus of kidney
CPT/HCPCS: 52332; 74420; 82948; C1758; C1769; C2617; J0696; J0744; J2270; J2405; J2704; J2765; J3010; J7120 ×2; Q9966

== ENCOUNTER 2018-10-17 07:19 | Observation (INO) | payer MEDICARE, OTHER ==
[2018-10-02 16:18] VITALS: BMI 37.0
[2018-10-17] MEDS ORDERED: Etomidate 20 mg/10ml Inj IV ONE (09:40)
[2018-10-17] MEDS ORDERED: ePHEDrine 50 mg/ml Inj ONE (09:54)
[2018-10-17] MEDS ORDERED: Phenylephrine 10 mg/ml Inj ONE (09:54)
[2018-10-17] MEDS ORDERED: Iohexol 240 (50 ml) ONE (09:58)
[2018-10-17] MEDS ORDERED: cefTRIAXone 1 GM in NS 100 ML BAG IVPB ONE (10:05)
[2018-10-17] MEDS ORDERED: HYDROmorphone 0.5 mg/0.5 ml ISec IVP PRN (11:24)
[2018-10-17] MEDS ORDERED: Lactated Ringer's 1,000 ML IV SCH (11:30)
[2018-10-17] MEDS ORDERED: HYDROmorphone 0.5 mg/0.5 ml ISec IVP ONE (11:33)
[2018-10-17] MEDS ORDERED: HYDROmorphone 0.5 mg/0.5 ml ISec ONE (11:34)
[2018-10-17] MEDS ORDERED: Ciprofloxacin 400mg/200ml D5W 400 MG/200 ML BAG IVPB STA (11:49)
--- NOTE | 2018-10-17 13:26 | RAD ---
Date of service: 10/17/2018 PROCEDURE: Retrograde pyelogram HISTORY: Right kidney stone COMPARISON: TECHNIQUE: 66.7 sec of fluoro time. Cumulative dose 17.08 mGy. Twenty-nine images submitted FINDINGS: The study shows placement of wires and instruments in the left renal collecting system with eventual placement of a right ureteral stent IMPRESSION: As above
[2018-10-17] MEDS ORDERED: Gentamicin 160 MG in Sodium Chloride 0.9% 100 ML IVPB STA (15:02)
[2018-10-17] MEDS ORDERED: Gentamicin 80 mg in 0.9% NS 160 MG/200 ML BAG IVPB ONE (15:06)
[2018-10-17] MEDS ORDERED: Gentamicin IV 60mg/50ml NS(PREMIX) IVPB ONE (15:15)
--- NOTE | 2018-10-17 17:36 | PCM.URO ---
Urology Progress Note - Subjective Hematuria: Yes (admit for sepsis/full note to be dictated) - Objective Lab Results Last 24 Hours: Laboratory Results - last 24 hr 10/17/18 10/17/18 07:41 16:03 POC Glucose (mg/dL) 171 H 139 H Intake & Output: Intake & Output 10/16/18 10/17/18 10/17/18 18:59 06:59 18:59 Intake Total 100 Balance 100 Intake: IV 100 Vital Signs: Vital Signs - 24 hr 10/17/18 10/17/18 10/17/18 07:30 11:20 11:35 Temperature 98.2 F 97.4 F L 97.4 F L Pulse Rate 91 H 69 70 Respiratory 20 16 16 Rate Blood Pressure 127/68 159/79 H 154/64 H O2 Sat by Pulse 94 L 98 97 Oximetry 10/17/18 10/17/18 10/17/18 11:50 12:05 12:15 Temperature 97.4 F L 97.4 F L 97.8 F Pulse Rate 73 77 76 Respiratory 16 16 18 Rate Blood Pressure 155/64 H 162/73 H 164/77 H O2 Sat by Pulse 100 100 98 Oximetry 10/17/18 10/17/18 10/17/18 15:20 15:35 16:04 Temperature 102 F H 102.0 F H 102 F H Pulse Rate 119 H 119 H Respiratory 20 20 Rate Blood Pressure 134/75 134/75 O2 Sat by Pulse 92 L 92 L Oximetry
[2018-10-17 17:50] LABS: BASO # 0.01 K/mm3 (0.0-2.0); BASO % 0.1 % (0.0-3.0); EOS # 0.1 (0.0-0.7); EOS % 0.9 % (1.5-5.0); HEMOGLOBIN 12.5 g/dL (12.0-16.0); LYMPH # 0.3 (1.2-3.4); LYMPH % 3.2 % (22.0-35.0); MEAN CELL VOLUME 90.7 fl (80.0-105.0); MEAN CORPUSCULAR HEMOGLOBIN 29.1 pg (25.0-35.0); MEAN CORPUSCULAR HGB CONC 32.1 g/dl (31.0-37.0); MEAN PLATELET VOLUME 10.4 fl (7.0-11.0); MONO # 0.3 (0.1-0.6); MONO % 3.2 % (1.0-6.0); PLATELET COUNT 128 10^3/uL (120.0-450.0); RBC 4.29 10^6/uL (3.5-6.1); RED CELL DISTRIBUTION WIDTH 14.3 % (11.5-14.5); WHITE BLOOD COUNT 8.5 10^3/uL (4.5-11.0)
[2018-10-17 18:01] LABS: ALB/GLOB RATIO 1.2 (1.1-1.8); ALBUMIN 3.6 g/dL (3.0-4.8); ALT/SGPT 20 U/L (7-56); AST/SGOT 18 U/L (14-36); BLOOD UREA NITROGEN 25 mg/dL (7-21); CALCIUM 8.8 mg/dL (8.4-10.5); GFR NON-AFRICAN AMERICAN > 60
[2018-10-17 18:20] LABS: BAND 1 % (0-2); LYMPHOCYTE 2 % (22.0-35.0); MONOCYTE 1 % (1.0-6.0); NEUTROPHIL 95 % (50.0-70.0)
[2018-10-17 18:21] LABS: EOSINOPHIL 1 % (0.0-3.0)
[2018-10-17] MEDS ORDERED: Pneumococcal 23-Valent Vaccine IM ONE (22:31)
[2018-10-18 03:51] LABS: PH,URINE 5.5 (4.7-8.0); URINE BILIRUBIN SMALL (NEGATIVE); URINE BLOOD LARGE (NEGATIVE); URINE GLUCOSE (UA) NEGATIVE (NEGATIVE); URINE LEUKOCYTE ESTERASE MODERATE Leu/uL (NEGATIVE); URINE PROTEIN >=300 mg/dL (<30 mg/dL); URINE UROBILINOGEN 0.2 E.U./dL (<1 E.U./dL)
[2018-10-18 04:00] LABS: URINE APPEARANCE TURBID (CLEAR); URINE COLOR BROWN (YELLOW)
[2018-10-18 04:20] LABS: URINE BACTERIA MOD /hpf
[2018-10-18] MEDS: Meropenem IV 1 gm in NS 1 GM/50 ML BAG IVPB SCH ×4 (05:10→21:10)
--- NOTE | 2018-10-18 08:40 | RAD ---
Date of service: 10/17/2018 HISTORY: fever COMPARISON: No prior. TECHNIQUE: 1 view obtained. FINDINGS: LUNGS: No active pulmonary disease. PLEURA: No significant pleural effusion identified, no pneumothorax apparent. CARDIOVASCULAR: Aortic calcification Moderate cardiomegaly no pulmonary vascular congestion. OSSEOUS STRUCTURES: No significant abnormalities. VISUALIZED UPPER ABDOMEN: Normal. OTHER FINDINGS: None. IMPRESSION: No active disease.
[2018-10-18] MEDS ORDERED: Oxycodone/Acetaminophen 5/325 mg Tab PO STA (10:21)
--- NOTE | 2018-10-18 11:05 | CP.PCM.PCO ---
Additional Comments - Additional Comments Additional Comments: Pt seen and examined at bedside. She is c/o R lower abd pain but improved. Denies nausea, vomiting or diarrhea. She is s/p cysto, R renoscopy, R ureteroscopy, removal of indwelling stent, R retrograde pyelogram, R holmium laser lithotripsy and placement of R JJ stent by Dr. Carrington. Post-op she developed fever w/ Tmax of 102. This morning pt had been afebrile. She is currently on Merrem IV per ID recs. Pending blood cx and urine cx. Will continue to follow. Laboratory Results - last 24 hr 10/17/18 10/17/18 10/17/18 16:03 17:45 17:45 WBC 8.5 RBC 4.29 Hgb 12.5 Hct 38.9 MCV 90.7 MCH 29.1 MCHC 32.1 RDW 14.3 Plt Count 128 MPV 10.4 Neut % (Auto) 92.6 H Lymph % (Auto) 3.2 L [place] % (Auto) 3.2 Eos % (Auto) 0.9 L Baso % (Auto) 0.1 Lymph # (Auto) 0.3 L [place] # (Auto) 0.3 Eos # (Auto) 0.1 Baso # (Auto) 0.01 Absolute Neuts (auto) 7.91 H Neutrophils % (Manual) 95 H Band Neutrophils % 1 Lymphocytes % (Manual) 2 L Monocytes % (Manual) 1 Eosinophils % (Manual) 1 Sodium 138 Potassium 4.1 Chloride 105 Carbon Dioxide 25 Anion Gap 12 BUN 25 H Creatinine 0.6 L Est GFR ( Amer) > 60 Est GFR (Non-Af Amer) > 60 POC Glucose (mg/dL) 139 H Random Glucose 110 Calcium 8.8 Phosphorus 3.1 Magnesium 1.7 Total Bilirubin 0.8 AST 18 ALT 20 Alkaline Phosphatase 75 Total Protein 6.6 Albumin 3.6 Globulin 3.0 Albumin/Globulin Ratio 1.2 Urine Color Urine Appearance Urine pH Ur Specific [place] Urine Protein Urine Glucose (UA) Urine Ketones Urine Blood Urine Nitrate Urine Bilirubin Urine Urobilinogen Ur Leukocyte Esterase Urine RBC Urine WBC Ur Epithelial Cells Urine Bacteria 10/17/18 10/17/18 10/18/18 20:51 23:00 06:37 WBC RBC Hgb Hct MCV MCH MCHC RDW Plt Count MPV Neut % (Auto) Lymph % (Auto) [place] % (Auto) Eos % (Auto) Baso % (Auto) Lymph # (Auto) [place] # (Auto) Eos # (Auto) Baso # (Auto) Absolute Neuts (auto) Neutrophils % (Manual) Band Neutrophils % Lymphocytes % (Manual) Monocytes % (Manual) Eosinophils % (Manual) Sodium Potassium Chloride Carbon Dioxide Anion Gap BUN Creatinine Est GFR ( Amer) Est GFR (Non-Af Amer) POC Glucose (mg/dL) 199 H 115 H Random Glucose Calcium Phosphorus Magnesium Total Bilirubin AST ALT Alkaline Phosphatase Total Protein Albumin Globulin Albumin/Globulin Ratio Urine Color Brown Urine Appearance Turbid Urine pH 5.5 Ur Specific [place] 1.020 Urine Protein >=300 H Urine Glucose (UA) Negative Urine Ketones Negative Urine Blood Large H Urine Nitrate Positive H Urine Bilirubin Small H Urine Urobilinogen 0.2 Ur Leukocyte Esterase Moderate H Urine RBC 10 - 15 H Urine WBC 10 - 15 H Ur Epithelial Cells 1 - 3 Urine Bacteria Mod 10/18/18 10:29 WBC RBC Hgb Hct MCV MCH MCHC RDW Plt Count MPV Neut % (Auto) Lymph % (Auto) [place] % (Auto) Eos % (Auto) Baso % (Auto) Lymph # (Auto) [place] # (Auto) Eos # (Auto) Baso # (Auto) Absolute Neuts (auto) Neutrophils % (Manual) Band Neutrophils % Lymphocytes % (Manual) Monocytes % (Manual) Eosinophils % (Manual) Sodium Potassium Chloride Carbon Dioxide Anion Gap BUN Creatinine Est GFR ( Amer) Est GFR (Non-Af Amer) POC Glucose (mg/dL) 167 H Random Glucose Calcium Phosphorus Magnesium Total Bilirubin AST ALT Alkaline Phosphatase Total Protein Albumin Globulin Albumin/Globulin Ratio Urine Color Urine Appearance Urine pH Ur Specific [place] Urine Protein Urine Glucose (UA) Urine Ketones Urine Blood Urine Nitrate Urine Bilirubin Urine Urobilinogen Ur Leukocyte Esterase Urine RBC Urine WBC Ur Epithelial Cells Urine Bacteria
--- NOTE | 2018-10-18 13:29 | PN ---
DATE: 10/18/2018 UROLOGY IMMEDIATE POSTOPERATIVE NOTE See the history and physical and operative note. The patient is in the recovery room. Vital signs are okay, but she is developing low-grade temperature given her age and medical condition, concerned for sepsis. So, the patient is going to be admitted . Vital signs are noted. Heart rate and blood pressure exacerbated. At this point, the patient's temperature climbed to 101. Given the whole story, I am going to admit the patient to the hospital. UROLOGY PLAN: 1. Obtain a medical consult. 2. Infectious Disease consult. 3. Adjust the antibiotics accordingly. Cultures are pending, blood cultures, urine cultures, etc. If necessary, may be we can get a chest x-ray. Adjust his protocol. So the Urology, Pathology, urosepsis, in the postop period after . Plan at this time is to admit the patient in hospital. Further observations to follow. Enrique Carrington MD
--- NOTE | 2018-10-18 14:48 | CON ---
DATE: 10/18/2018 REFERRING PHYSICIAN: Dr. Carrington. REASON FOR CONSULTATION: Management of hypertension, diabetes, nephrolithiasis. CHIEF COMPLAINT AND HISTORY OF PRESENT ILLNESS: This is an 83-year-old female who is coming into the hospital was had a cystoscopy done. The patient had removal of indwelling stent in the right kidney. The patient has laser lithotripsy done and then there was a placement of right stent. The patient had a Mejía catheter placed this is all due to nephrolithiasis. The patient had postop had high-grade fever, the temperature was 102. The patient was admitted for further management. They were concerned to the patient's septic. The patient said she was having fevers and chills yesterday. She had no complaints of any headaches or dizziness. She says she is feeling better this morning. She has no complaints of any fevers. No nausea. No abdominal pain. No back pain. No dysuria. No headaches. No chest pain. No shortness of breath. No abdominal pain. All other review of systems are within normal limits except that was mentioned. ALLERGIES: NO KNOWN DRUG ALLERGIES. PAST MEDICAL HISTORY: Nephrolithiasis, hypertension, diabetes type 2. SOCIAL HISTORY: She does not smoke, drink or use drugs. FAMILY HISTORY: Noncontributory. PAST SURGICAL HISTORY: Hysterectomy. PHYSICAL EXAMINATION VITAL SIGNS: Temperature is 98.6, T-max is 102, pulse of 93, blood pressure is 110/59, respirations 18, O2 saturation 92%. Height is 5 feet, weight is 190 pounds. BMI is 37.1. GENERAL: The patient is lying in bed, comfortable, and in no acute distress. HEENT: Atraumatic and normocephalic. Anicteric sclerae. Moist mucosa. Sarah Ann conjunctivae. No oral lesions. NECK: No JVD, anterior and posterior adenopathy, thyromegaly, or bruits. CARDIOVASCULAR: S1 and S2 regular. No murmurs, rubs or gallops. LUNGS: Clear to auscultation bilaterally. No wheezes, rales, or rhonchi. ABDOMEN: Bowel sounds are positive. Soft, nontender and nondistended. No hepatosplenomegaly. No rebound and no guarding EXTREMITIES: No cyanosis, clubbing, or edema. NEUROLOGIC: No facial asymmetry. Tongue is midline. No uvula deviation. Power is 5/5 upper extremities and lower extremities. Sensation intact in upper extremities and lower extremities. PSYCHIATRIC: She is awake, alert and oriented x3. No anxiety or depression. She has normal affect. GENITOURINARY: Right positive for Mejía catheter. VASCULAR: 2+ pulses in the carotid pulses and pedal pulses. SKIN: No erythema or nodules SPINE: Shows normal curvature. LABORATORY DATA: White count of 8.5, hemoglobin is 12.5, platelets count is 128. Chemistry shows a creatinine of 0.6. She has urine that shows protein is greater than 300, nitrates are positive, bilirubin is small, RBC is 10 to 15, WBC is 10 to 15. Chest x-ray done shows no infiltrates, but left lower lobe is hard to evaluate, I am waiting for the official results of x-ray. ASSESSMENT: 1. Urinary tract infection. 2. Fever. 3. Nephrolithiasis. 4. Diabetes type 2. 5. Hypertension. 6. Status post right ureteral stent placement. PLAN: The patient is admitted to the hospital. She has been started on IV antibiotics. She will be on losartan for her hypertension. She is going to continue with Amaryl for diabetes. She is on Lipitor for her dyslipidemia. She does have anxiety because of her sister that three months ago. The patient is going to be seen by Infectious Disease. We will await for the patient's urine cultures. She is currently comfortable, not complaining of any pain. She does have a right stent that was placed. She will await for culture results. She is on Tylenol for fevers. She is going to be on regular diet. I will place her on insulin coverage. Juan Miguel Ritchie MD
[2018-10-18] MEDS: Insulin Reg-LOW-Coverage SC SCH (16:45)
--- NOTE | 2018-10-18 19:02 | HP ---
DATE OF EXAM: 10/17/2018 UROLOGY ADMISSION HISTORY AND PHYSICAL. REASON FOR ADMISSION: For treatment of kidney stones. HISTORY OF PRESENT ILLNESS: A very pleasant lady. See the notes from previously dictated note from last week. The patient has a stone up in the kidney, in her right lower pole and she has a history of infections that will bring her in today. Last week, we brought her in for a cysto stent insertion. Today, we have brought her in for uteroscopy and laser lithotripsy. We discussed risks, benefits, and treatment alternatives. So typically, we discussed that gallstones do not need to be treated. She is worried about recurrent sepsis, and given her medical status with the aortic stenosis and her general medical condition and her age. We have decided to bring the patient here to this hospital for a uteroscopy and laser lithotripsy. Although this is a little more invasive than shock laser lithotripsy, I feel safer from that major care alternative. We discussed options with the patient, the risks, benefits, and alternatives and she is in agreement. in the chart noted from last week. REVIEW OF SYSTEMS: As listed above, noncontributory. MEDICATIONS: As listed above. ALLERGIES: LISTED ABOVE. PAST MEDICAL AND SURGICAL HISTORY: As listed above, essentially unremarkable. SOCIAL HISTORY: As listed above, essentially unremarkable. FAMILY HISTORY: As listed above, essentially unremarkable. PHYSICAL EXAMINATION GENERAL: A well-nourished female, in no apparent distress. VITAL SIGNS: Within normal limits, included in the chart. LUNGS: Clear. There are no adventitious sounds. ABDOMEN: Soft and nontender. No flank mass is appreciated. PELVIC: Mild cystocele as mentioned in my notes revealed. Others are unremarkable. DIAGNOSES: Urolithiasis, recurrent urinary tract infection. PLAN: This is a very pleasant 83-year-old woman with recurrent infections. She now has a cystoscopy mentioned in the chart last week. This is to dilate the . The plan for today is as follows; again, I checked and reviewed the previous cultures. We are going to provide antibiotic prophylaxis. The plan as follows; 1. The patient is to go to the OR for a cystoscopy, ureteroscopy, renoscopy and a laser lithotripsy. 2. We are also going to plan for antibiotic prophylaxis and then further plans will follow. 3. I did discuss with the patient at length the risks, benefits, and treatment alternatives. Enrique Carrington MD
--- NOTE | 2018-10-18 20:13 | CON ---
DATE OF CONSULTATION: 10/18/2018 The patient seen earlier today in 560, bed 1. CHIEF COMPLAINT: Temperature of 102 x1 day. HISTORY OF PRESENT ILLNESS: This is an 83-year-old female, known to me from previous admissions in the past. The patient has had Kathya glabrata fungemia. The patient has had Enterobacter cloacae urinary tract infections and E. coli urinary tract infections, kidney stones, hypertension, high cholesterol, cataract, was seen by Dr. Osuna and had a procedure cystoscopy, lithotripsy with a right renal stone, postprocedure developed a temperature of 102, and Infectious Disease consultation requested. The patient states that she was having chills and fevers, no chest pain and cough. The procedure was done yesterday. REVIEW OF SYSTEMS: Reveals no nausea or vomiting at this point, a fever appears to have been improving and review of systems reveals 12-point review of systems performed. PAST MEDICAL HISTORY: Significant for a kidney stone, hypertension, high cholesterol, cataract, history of Enterobacter cloacae, urinary tract infection, history of Kathya glabrata fungemia in 02/2018, and history of E. Coli urinary tract infection. PAST SURGICAL HISTORY: Significant for cardiac catheterization and hysterectomy. ALLERGIES: THE PATIENT HAS NO KNOWN ALLERGIES. MEDICATIONS: Medications at home reviewed and include Cozaar, statins, and vitamins. PHYSICAL EXAMINATION: VITAL SIGNS: The patient's temperature of 102, heart rate of 93-104, respiratory rate of 20, and blood pressure is 110/59. HEENT: Examination of HEENT is unremarkable. NECK: Supple. LUNGS: Have decreased breath sounds. HEART: Normal S1, S2. ABDOMEN: Soft, nontender. LABORATORY DATA: Laboratory examination reveals a white count of 8.5, hemoglobin of 12, platelets of 128. Chemistries revealed a BUN of 25, creatinine of 0.6. Urinalysis reveals 10-15 wbc's and moderate bacteria, positive nitrites, and moderate leukocyte esterase, greater than 300 proteinuria, and large blood, and microbiology is pending. ASSESSMENT AND PLAN: An 83-year-old female with; 1. Sepsis with urine as the source, status post cystoscopy with lithotripsy of right renal stone. We will treat the patient with meropenem pending blood cultures, urine cultures, may consider a CAT scan of the abdomen and pelvis, and the patient had a chest x-ray which was negative. We will follow closely with you, and pending initial workup results. Abelino Hoang MD
--- NOTE | 2018-10-19 03:33 | PN ---
DATE: 10/18/2018 DAILY PROGRESS NOTE Please see history and physical, operative note, the postoperative note, and immediate postop note. We admitted the patient for sepsis. We have the patient being seen by Infectious Disease and Medicine. Overnight, she actually remained afebrile. Of late, three days previously though, she spiked up to 102 temperature. Right now, she feels better. She just wants the Mejía out. PAST MEDICAL AND SURGICAL HISTORY: No other changes. PHYSICAL EXAMINATION: GENERAL: A well-nourished female in no apparent distress. VITAL SIGNS: Noted. The Mejía catheter is removed. The stent is removed intact by me. I removed both tangles, and I gave it to the patient actually to show her. DIAGNOSES: Urolithiasis, hematuria, recurrent urinary tract infection, and postoperative sepsis. ASSESSMENT AND PLAN: I discussed with the patient our findings and urology findings. We did a antibiotic prophylaxis and loading antibiotics as she still was septic and she needed to stay in the hospital. Infectious Disease blood culture and urine cultures everything are pending. From a urology standpoint, now by removing the Mejía and removing the double-J stent, we will see how the patient does clinically. I did discuss with her urology operative findings. We are expecting stones to pass. We broke the stones into pieces and fragments. For further plans, we will follow. There is no indication of on a patient named Carline Nunez. ADDENDUM #1: After we pulled out the stent about an hour, it should be relayed that the patient was having stabbing pain. We did follow up with Motrin/Toradol later. The patient would not even take a Percocet. She then felt better, so we are just going to continue to observe the patient. ADDENDUM #2: This though was about 6:36 a.m. this morning. I subsequently spoke to the geotechnical engineering technician at about 2 p.m. and then about 9 p.m. in the evening time. Specifically, it is now 9:40, and the patient is doing well with no complaints. Depending on her medical status and Infectious Disease, may be we will consider discharge as soon as she is cleared by them. We will follow the antibiotic recommendations from the infectious disease department. Enrique Carrington MD
[2018-10-19] MEDS: Meropenem IV 1 gm in NS 1 GM/50 ML BAG IVPB SCH (05:20)
[2018-10-19] MEDS: Insulin Reg-LOW-Coverage SC SCH (07:33)
--- NOTE | 2018-10-19 08:32 | OP ---
PROCEDURE DATE: 10/17/2018 PREOPERATIVE DIAGNOSES: Urolithiasis, hematuria, recurrent urinary tract infection. POSTOPERATIVE DIAGNOSES: Urolithiasis, hematuria, recurrent urinary tract infection. PROCEDURES: Cystoscopy, removal of a right Double-J stent, a right ureteroscopy, right renoscopy, right laser lithotripsy, and right retrograde pyelogram, and insertion of right Double-J stent dangled and insertion of a Mejía catheter. COMPLICATIONS: There were no complications. BLOOD LOSS: Less than 25 mL. FINDINGS: 1. Mild cystocele. 2. Relatively normal bladder mucosa. 3. With a chronic cystitis sort of picture. 4. The stone is identified later. 5. Determination of indwelling Double-J stent. I inserted the Mejía catheter (got little blood in the urine and to make sure the patient drains well). There were no complications. See the addendum at the end of this note and see the immediate postop note. Procedure itself went well and smoothly. INDICATIONS: See history and physical for further details. This is a very pleasant lady who came in for the above procedure. We discussed the risks, benefits, an alternatives in preparation today. The patient received antibiotic prophylaxis. We used Rocephin and Cipro. DESCRIPTION OF PROCEDURE: The procedure is as follows: After , the patient was brought to the OR, time-out was called to confirm the patient and positioning. Antibiotic prophylaxis used. The cystoscope was introduced via urethra. We identified the old stent. I do want to mention that multiple pictures were taken today. it is interesting that the patient has a stent that is only 1 week old and yet it is fairly crusted in just one week's time. At this point, we removed the stent via through the Double-J stent. I reintroduced the cystoscope and I put a wire adjacent to the Double-J stent. . At this point I put a second wire as well. I had 2 wires going up to the kidney. We confirmed the positioning of these. Put a Double-J stent in. I then identified the stone, I am basically able to go up to all the calyces; upper, lower, mid. Prior to the procedure, I also reviewed the CT scan and then intraoperatively again just to make sure it is just one lower pole stone, it is a relatively old CAT scan. We are able to inspect . I did a retrograde pyelogram to confirm our position for the calyces. You can see the multiple pictures that I had taken. Once we had identified the stone, we then set up the laser energy. We started about 3 MHz, go to later 5 MHz and we started with 1.8 joules of energy. We broke the stone into sand pieces. It is a very hard stone but it breaks well. See the multiple pictures that were taken and placed on the chart. At this point, we injected contrast to confirm our positioning. I had the wire up in place. Removed the ureteroscope, I confirmed positioning. I put a Double-J stent in . Given the blood in the bladder, put a ____ the bladder. We secured our position. Overall the patient tolerated the procedure well without complication, brought to recovery room in stable condition after having tolerated the procedure well without complication. Enrique Carrington MD
[2018-10-19 08:57] VITALS: BP 123/71; PULSE 80; RESP 20; TEMP 97.1; O2SAT 92
--- NOTE | 2018-10-19 09:28 | PN ---
DATE: 10/19/2018 SUBJECTIVE: The patient has no complaints of any chest pain or shortness of breath. She is sitting in chair, alert and awake. PHYSICAL EXAMINATION: VITAL SIGNS: Temperature is 98, pulse of 83, blood pressure 97/60, respirations 18. GENERAL: The patient is lying in bed, flat, comfortable. HEENT: No oral lesion. Anicteric sclerae. Moist mucosa. NECK: No JVD, adenopathy, or thyromegaly. CARDIOVASCULAR: S1 and S2, regular. No murmurs, rubs, or gallops. LUNGS: Clear to auscultation bilaterally. No wheeze, rales, or rhonchi. ABDOMEN: Bowel sounds are positive, soft, nontender and nondistended. EXTREMITIES: No cyanosis, clubbing or edema. LABORATORY DATA: White count of 8.5, hemoglobin 12.5, creatinine 0.6. ASSESSMENT: 1. Sepsis secondary to urinary tract infection. 2. Nephrolithiasis. 3. Diabetes type 2. 4. Hypertension. 5. Status post right ureteral stent replacement. PLAN: The patient is currently comfortable. She is waiting for her urine culture results. Her blood culture results have been normal. She is on losartan for hypertension. She is clinically feeling better. She is receiving Klonopin as needed for anxiety. She is on meropenem for antibiotics. She is receiving Lipitor for her dyslipidemia. She is on Tylenol as needed. Once the patient's urine cultures are finalized, we will decide about discharging home on oral antibiotics. Juan Miguel Ritchie MD
--- NOTE | 2018-10-19 19:05 | PN ---
DATE: 10/19/2018 SUBJECTIVE: The patient is in bed in no acute distress, nontoxic. PHYSICAL EXAMINATION VITAL SIGNS: On exam temperature is 97, blood pressure is 120/70, respiratory rate of 18 and heart rate of 80. HEENT: Unremarkable. NECK: Supple. LUNGS: Have decreased breath sounds. HEART: Normal S1 and S2. ABDOMEN: Soft. LABORATORY EXAMINATION: Reveals the cultures are negative. The patient has been afebrile. White count is normal and blood and urine cultures are negative. ASSESSMENT AND PLAN: This is an 83-year-old female who was seen early this morning. She wants to be home for mother's day and she was admitted with sepsis with urine as the source, status post cystoscopy with lithotripsy of right renal stone and switched to p.o. antibiotics and discharged on p.o. antibiotics. The patient to follow up with PMD and urology. Abelino Hoang MD
== END 2018-10-19 14:29 | disposition home or self-care (01) ==
LOC: SDS 07:19 → 5RNO 14:34
PROVIDERS: ADMIT Urology; ATTEND Urology
DX: N20.0 Calculus of kidney (principal); N30.21 Other chronic cystitis with hematuria; N81.10 Cystocele, unspecified; T81.44XA Sepsis following a procedure, initial encounter; E11.9 Type 2 diabetes mellitus without complications; I10 Essential (primary) hypertension; E78.00 Pure hypercholesterolemia, unspecified; I35.0 Nonrheumatic aortic (valve) stenosis; Z79.84 Long term (current) use of oral hypoglycemic drugs
CPT/HCPCS: 36415; 52356; 71045; 74420; 80053; 81001; 82948; 83735; 84100; 85025; 87040; 87086; 96365; 96366; 96375; 96376; C1769; C2617; G0378; J0696; J0744; J1170; J1580; J1885; J2185; J2370; J2405; J3010; J7120; Q9966